=== PATIENT | male | born 1940 | race Caucasian/White ===

== ENCOUNTER 2017-01-30 11:23 | Inpatient (IN) ==
--- NOTE | 2017-01-30 11:43 | Emergency Department Note ---
Disposition Clinical Impression: Weakness, Chronic anemia Disposition: Home, Self-Care Condition: Good Instructions: Weakness (ED) Reasons to Return/Additional Instructions: Please continue all medications as previously prescribed. Please follow-up with your primary care provider in the next 1-2 days for reevaluation and to discuss this visit. If you do not have one please contact the physician referral line provided to establish care. Should your symptoms persist, worsen or any concerns please return to the ER immediately for reevaluation. Referrals: NO,PCP [Non-Partnered Physician] - [place] [facility]erral [facility] [Outside] Forms: ED Satisfaction Letter Time of Disposition: 14:13 Weakness HPI - General Chief complaint: ED Weakness Stated complaint: generalized weakness Time Seen by Provider: 01/30/17 11:29 Source: patient, family Mode of arrival: wheelchair Limitations: no limitations Nursing Notes Reviewed: Yes Vital Signs Reviewed: Yes - History of Present Illness HPI Narrative: 76-year-old male history of atrial fibrillation on Coumadin, carotid stenosis on Plavix, oxygen dependent COPD, heart failure on Lasix 40 mg twice a day who presents to the ER with a chief complaint of weakness. The patient is accompanied by family. They report that for the last week he has had worsening weakness at his assisted living facility. They report that usually he only wears his oxygen at night but for the last week he has had to wear it continuously due to worsening shortness of breath. He denies any recent illnesses, fevers, chills, chest pain, shortness of breath, cough, nausea, vomiting or abdominal pain. He does report he had diarrhea around Tuesday but that resolved after one day. Family is concerned that he might be dehydrated because he takes diuretic pills and he has had decreased fluid intake. No new medications. No other complaints. Pt Subjective Complaint: generalized weakness/fatigue Onset (ago): week(s) (1) Duration: constant Location: generalized Migration: none Pain Severity: none Pain Scale: 0 Worsens with: none Associated symptoms: Reports: denies other symptoms - Related Data Home Medications Medication Instructions Recorded Confirmed Albuterol Neb 06/16/15 06/16/15 Allopurinol 06/16/15 06/16/15 Colace 06/16/15 06/16/15 Coreg 06/16/15 06/16/15 Coumadin 06/16/15 06/16/15 Daliresp 06/16/15 06/16/15 Digoxin 06/16/15 06/16/15 Flonase 06/16/15 06/16/15 Ipratropium Neb 06/16/15 06/16/15 Lisinopril 06/16/15 06/16/15 Loratadine 06/16/15 06/16/15 Metolazone 06/16/15 06/16/15 Nexium 06/16/15 06/16/15 Nitro Stat 06/16/15 06/16/15 Plavix 06/16/15 06/16/15 Potassium Chloride 06/16/15 06/16/15 Spiriva 06/16/15 06/16/15 Symbicort 06/16/15 06/16/15 Vitamin D2 (50,000 UNIT) 06/16/15 06/16/15 Zocor 06/16/15 06/16/15 Zoloft 06/16/15 06/16/15 Previous Rx's Medication Instructions Recorded Amoxicillin 875 mg PO BID #20 tablet 06/16/15 Ondansetron [Zofran] 8 mg PO TID PRN #9 tablet 06/16/15 predniSONE [Prednisone] See Taper PO DAILY #30 tablet 06/16/15 Allergies Allergy/AdvReac Type Severity Reaction Status Date / Time Oxycodone [From OxyContin] Allergy Hives Verified 06/16/15 18:46 tramadol Allergy Hives Verified 06/16/15 18:46 fentyl patch Allergy Hives Uncoded 06/16/15 18:46 All systems ED: reviewed and negative except as stated. Constitutional: Reports: weakness. Denies: fever, chills Cardiovascular: Denies: chest pain, palpitations Respiratory: Denies: cough, dyspnea Gastrointestinal: Denies: abdominal pain, nausea, vomiting, diarrhea Genitourinary: Denies: urgency, dysuria Neurological: Reports: weakness. Denies: numbness, paresthesias Past Medical History - Past Medical History Attestation: Yes The following information was validated with the patient. Source: patient Medical history: Reports: atrial fibrillation, COPD, coronary artery disease, diabetes, hypertension, other Surgical history: Reports: coronary bypass (CABG) (two way) Psychiatric history: Reports: no psych history - Social History Smoking Status: Former smoker Smokeless Tobacco Status: No Alcohol use: Reports: occasionally Drug use: Reports: none Physical Exam - General Limitations: no limitations General appearance: alert, in no apparent distress - Head Head exam: atraumatic, normocephalic, normal inspection - Eye Eye exam: Present: normal appearance, EOMI - ENT ENT exam: normal exam - Neck Neck exam: Present: normal inspection - Chest Chest inspection: Present: normal inspection - Respiratory Respiratory exam: Present: normal lung sounds bilaterally - Cardiovascular Cardiovascular exam: Present: regular rate, irregular rhythm, systolic murmur (2 /6) - Abdominal Exam Abdominal exam: Present: soft, Non-Tender. Absent: tenderness - Extremities Exam Extremities exam: Present: normal inspection, full ROM - Expanded Upper Extremity Exam Shoulder exam: Present: normal inspection, full ROM Arm exam: Present: normal inspection, full ROM Elbow exam: Present: normal inspection, full ROM Forearm/Wrist exam: Present: normal inspection, full ROM Hand exam: Present: normal inspection, full ROM Vascular exam: Normal: capillary refill, radial pulse - Expanded Lower Extremity Exam Hip/Pelvis exam: Present: normal inspection, full ROM Upper leg exam: Present: normal inspection, full ROM Knee exam: Present: normal inspection, full ROM Lower leg exam: Present: normal inspection, full ROM Ankle exam: Present: normal inspection, full ROM Foot/toe exam: Present: normal inspection, full ROM Neurovascular/Tendon exam: Absent: motor deficit, sensory deficit - Neurological Exam Neurological exam: Present: alert, oriented X3, CN II-XII intact. Absent: motor sensory deficit - Psychiatric Psychiatric exam: Present: normal affect, normal mood - Skin Skin exam: Present: warm, dry, intact, normal color Course Course Narrative: Patient seen and examined. Vital signs reviewed. Plan for patient is an EKG, chest x-ray as well as labs and urine. Disposition pending. - Reevaluation(s) Reevaluation #1: Discussed results of imaging and lab work with the patient. His labs show chronic anemia with no indication for transfusion. He does not appear to be dehydrated by his lab values. Patient is not wishes to the hospital so we will ambulate him here and see how he does. Disposition pending. Reevaluation #2: Attempted to ambulate however they report that he uses a wheelchair consistently. Patient will be discharged with follow-up to his PCP. Vital Signs Temperature 98.6 F 01/30/17 11:24 Pulse Rate 93 01/30/17 11:24 Respiratory Rate 18 01/30/17 11:24 Blood Pressure 122/73 01/30/17 11:24 O2 Sat by Pulse Oximetry 83 01/30/17 11:24 Temperature 98.6 F 01/30/17 11:24 Pulse Rate 84 01/30/17 12:52 Respiratory Rate 19 01/30/17 13:09 Blood Pressure 111/67 01/30/17 12:52 O2 Sat by Pulse Oximetry 93 01/30/17 13:09 Oxygen Delivery Oxygen Delivery Nasal Cannula Weakness - MDM Narrative Medical decision making narrative: 76-year-old male presents to the ER with a chief complaint of weakness for one week duration. Family was concerned that he might be dehydrated because of how many water bottles they had found in his refrigerator over a one-week period. EKG here demonstrates A. fib and left bundle branch block which is chronic. Labs do not reveal any dehydration. There is a discussion about admission versus going home and the patient elects to be discharged at this time. Patient encouraged to follow-up with his PCP when next available. Given information for the referral line if he does not have one. - Lab Data Lab results reviewed: Yes I reviewed the patient's lab results. Result diagrams: 01/30/17 11:57 01/30/17 11:57 Lab Results 01/30/17 01/30/17 01/30/17 Range/Units 11:57 11:57 11:57 WBC 9.5 (4.3-11.1) K/mcL RBC 4.11 L (4.19-5.50) M/mcL Hgb 11.5 L (12.9-16.9) g/dL Hct 35.8 L (37.5-50.1) % MCV 87.1 (83.0-100.0) fL MCH 28.0 (28.0-33.3) pg MCHC 32.1 (31.6-35.5) g/dL RDW 15.4 H (11.5-14.5) % Plt Count 335 (140-400) K/mcL MPV 10.1 (9.4-12.4) fL Immature Gran % 0.5 (0-4) % Seg Neutrophils % 78.1 % Lymphocytes % 9.2 % Monocytes % 9.7 % Eosinophils % 2.3 % Basophils % 0.2 % Neutrophils # 7.4 (1.6-8.9) K/mcL Lymphocytes # 0.9 (0.6-4.6) K/mcL Monocytes # 0.9 (0.0-1.3) K/mcL Eosinophils # 0.2 (0.0-0.6) K/mcL Basophils # 0.0 (0.0-0.2) K/mcL Sodium 133 L (136-145) mEq/L Potassium 3.8 (3.5-4.5) mEq/L Chloride 101 (98-109) mEq/L Carbon Dioxide 25 (19-29) mEq/L BUN 27 H (8-26) mg/dL Creatinine 0.82 (0.72-1.25) mg/dL Est GFR ( Amer) > 60 (> 60) Est GFR (Non-Af Amer) > 60 (> 60) BUN/Creatinine Ratio 33 H (6-26) Glucose 98 (70-99) mg/dL Calculated Osmolality 281 (280-300) Calcium 7.9 L (8.6-10.8) mg/dL Troponin I 0.01 (0-0.03) ng/mL B-Natriuretic Peptide (0-100) pg/mL TSH 1.050 (0.350-4.840) mcIU/mL Urine Color (Yellow) Urine Clarity (Clear) Urine pH (5.0-8.0) pH Units Ur Specific [place] (1.010-1.025) Urine Protein (Neg-Trace) mg/dL Urine Glucose (UA) (Normal) mg/dL Urine Ketones (Negative) mg/dL Urine Blood (Negative) Urine Nitrite (Negative) Urine Bilirubin (Negative) Urine Urobilinogen (Normal) mg/dL Ur Leukocyte Esterase (Negative) 01/30/17 01/30/17 Range/Units 11:57 12:48 WBC (4.3-11.1) K/mcL RBC (4.19-5.50) M/mcL Hgb (12.9-16.9) g/dL Hct (37.5-50.1) % MCV (83.0-100.0) fL MCH (28.0-33.3) pg MCHC (31.6-35.5) g/dL RDW (11.5-14.5) % Plt Count (140-400) K/mcL MPV (9.4-12.4) fL Immature Gran % (0-4) % Seg Neutrophils % % Lymphocytes % % Monocytes % % Eosinophils % % Basophils % % Neutrophils # (1.6-8.9) K/mcL Lymphocytes # (0.6-4.6) K/mcL Monocytes # (0.0-1.3) K/mcL Eosinophils # (0.0-0.6) K/mcL Basophils # (0.0-0.2) K/mcL Sodium (136-145) mEq/L Potassium (3.5-4.5) mEq/L Chloride (98-109) mEq/L Carbon Dioxide (19-29) mEq/L BUN (8-26) mg/dL Creatinine (0.72-1.25) mg/dL Est GFR ( Amer) (> 60) Est GFR (Non-Af Amer) (> 60) BUN/Creatinine Ratio (6-26) Glucose (70-99) mg/dL Calculated Osmolality (280-300) Calcium (8.6-10.8) mg/dL Troponin I (0-0.03) ng/mL B-Natriuretic Peptide 327 H (0-100) pg/mL TSH (0.350-4.840) mcIU/mL Urine Color Yellow (Yellow) Urine Clarity Clear (Clear) Urine pH 6.0 (5.0-8.0) pH Units Ur Specific [place] 1.024 (1.010-1.025) Urine Protein Trace (Neg-Trace) mg/dL Urine Glucose (UA) Normal (Normal) mg/dL Urine Ketones Negative (Negative) mg/dL Urine Blood Negative (Negative) Urine Nitrite Negative (Negative) Urine Bilirubin Negative (Negative) Urine Urobilinogen Normal (Normal) mg/dL Ur Leukocyte Esterase Negative (Negative) - Radiology Data Radiology results reviewed: Yes I reviewed the patient's radiology results. Chest X-Ray 01/30/17 11:40 IMPRESSION: Cardiomegaly with possible trace effusions. No lobar pneumonia or overt congestive heart failure. D/ / Alonso Bourgeois MD / Alonso Bourgeois MD Interpreting Provider: Alonso Bourgeois MD - EKG Data EKG attestation: Yes I reviewed and interpreted this EKG. EKG results narrative: EKG demonstrates atrial fibrillation, left bundle branch block with a rate of 80 bpm. Normal axis. QRS duration [address]-T wave changes in the limb leads and V5 V6 likely secondary to bundle branch block. No ST elevations or depressions. No acute ischemic findings. No significant changes from previous EKG dated 03/21/14. Attestation Statement - Attestation Attestation: I examined this patient and my medical decision-making was reviewed with the ACCORDION MAKER/PA/Advanced Practice Nurse/Resident Physician. I agree with the documented findings, disposition and treatment plan as described except to the extent set forth below.
[2017-01-30] MEDS ORDERED: 0.9 % Sodium Chloride 1,000 ML IVC ONE ×2 (12:11→12:45)
[2017-01-30 12:15] LABS: Basophils % 0.2 %; Eosinophils # 0.2 K/mcL (0.0-0.6); Eosinophils % 2.3 %; Hematocrit 35.8 % (37.5-50.1); Hemoglobin 11.5 g/dL (12.9-16.9); Immature Granulocytes % 0.5 % (0-4); Lymphocytes # 0.9 K/mcL (0.6-4.6); Lymphocytes % 9.2 %; Mean Corpuscular HGB Conc 32.1 g/dL (31.6-35.5); Mean Corpuscular Volume 87.1 fL (83.0-100.0); Mean Platelet Volume 10.1 fL (9.4-12.4); Monocytes # 0.9 K/mcL (0.0-1.3); Monocytes % 9.7 %; Neutrophils # 7.4 K/mcL (1.6-8.9); Platelet Count 335 K/mcL (140-400); Red Blood Count 4.11 M/mcL (4.19-5.50); Red Cell Distribution Width 15.4 % (11.5-14.5); Segmented Neutrophils % 78.1 %
[2017-01-30 12:20] LABS: BUN/Creatinine Ratio 33 (6-26); Blood Urea Nitrogen 27 mg/dL (8-26); Calcium 7.9 mg/dL (8.6-10.8); Carbon Dioxide 25 mEq/L (19-29); Chloride 101 mEq/L (98-109); Glucose 98 mg/dL (70-99); Osmolality,Calculated 281 (280-300); Potassium 3.8 mEq/L (3.5-4.5); Sodium 133 mEq/L (136-145); eGFR For African Americans > 60 (> 60); eGFR For Non-African Americans > 60 (> 60)
[2017-01-30] MEDS ORDERED: Ipratropium/Albuterol Neb 3 ML IH ONE (12:44)
[2017-01-30 12:57] LABS: Bilirubin,Urine Negative (Negative); Blood,Urine Negative (Negative); Clarity,Urine Clear (Clear); Color,Urine Yellow (Yellow); Glucose,Urine (UA) Normal (Normal); Ketones,Urine Negative (Negative); Leukocyte Esterase,Urine Negative (Negative); Nitrite,Urine Negative (Negative); Protein,Urine Trace mg/dL (Neg-Trace); Specific Gravity,Urine 1.024 (1.010-1.025); Urobilinogen,Urine Normal (Normal)
[2017-01-30 13:00] LABS: Bacteria,Urine None Seen per hpf (None-Few); Hyaline Casts,Urine None Seen per lpf (None-Few); RBC,Urine 0-3 per hpf (0-3); Squamous Epithelial Cell,Urine Moderate per lpf (None-Few); WBC,Urine 0-3 per hpf (0-3)
[2017-01-30] MEDS ORDERED: 0.9 % Sodium Chloride 500 ML IVC ONE (13:04)
--- NOTE | 2017-01-30 14:34 | Emergency Department Note ---
Disposition Clinical Impression: Weakness, Chronic anemia Disposition: Admitted As Inpatient Condition: Good Instructions: Weakness (ED) Referrals: NO,PCP [Non-Partnered Physician] - Forms: ED Satisfaction Letter Weakness HPI - General Chief complaint: ED Weakness Stated complaint: generalized weakness Time Seen by Provider: 01/30/17 11:29 Source: patient, family Mode of arrival: wheelchair Limitations: no limitations - History of Present Illness Pt Subjective Complaint: generalized weakness/fatigue Location: generalized Pain Severity: none Pain Scale: 0 Worsens with: none Associated symptoms: Reports: denies other symptoms - Related Data Home Medications Medication Instructions Recorded Confirmed Albuterol Neb 06/16/15 06/16/15 Allopurinol 06/16/15 06/16/15 Colace 06/16/15 06/16/15 Coreg 06/16/15 06/16/15 Coumadin 06/16/15 06/16/15 Daliresp 06/16/15 06/16/15 Digoxin 06/16/15 06/16/15 Flonase 06/16/15 06/16/15 Ipratropium Neb 06/16/15 06/16/15 Lisinopril 06/16/15 06/16/15 Loratadine 06/16/15 06/16/15 Metolazone 06/16/15 06/16/15 Nexium 06/16/15 06/16/15 Nitro Stat 06/16/15 06/16/15 Plavix 06/16/15 06/16/15 Potassium Chloride 06/16/15 06/16/15 Spiriva 06/16/15 06/16/15 Symbicort 06/16/15 06/16/15 Vitamin D2 (50,000 UNIT) 06/16/15 06/16/15 Zocor 06/16/15 06/16/15 Zoloft 06/16/15 06/16/15 Previous Rx's Medication Instructions Recorded Amoxicillin 875 mg PO BID #20 tablet 06/16/15 Ondansetron [Zofran] 8 mg PO TID PRN #9 tablet 06/16/15 predniSONE [Prednisone] See Taper PO DAILY #30 tablet 06/16/15 Allergies Allergy/AdvReac Type Severity Reaction Status Date / Time Oxycodone [From OxyContin] Allergy Hives Verified 06/16/15 18:46 tramadol Allergy Hives Verified 06/16/15 18:46 fentyl patch Allergy Hives Uncoded 06/16/15 18:46 Constitutional: Reports: weakness. Denies: fever, chills Cardiovascular: Denies: chest pain, palpitations Respiratory: Denies: cough, dyspnea Gastrointestinal: Denies: abdominal pain, nausea, vomiting, diarrhea Genitourinary: Denies: urgency, dysuria Neurological: Reports: weakness. Denies: numbness, paresthesias Past Medical History - Past Medical History Medical history: Reports: atrial fibrillation, COPD, coronary artery disease, diabetes, hypertension, other Surgical history: Reports: coronary bypass (CABG) (two way) Psychiatric history: Reports: no psych history - Social History Smoking Status: Former smoker Smokeless Tobacco Status: No Alcohol use: Reports: occasionally Drug use: Reports: none Physical Exam - General Limitations: no limitations General appearance: alert, in no apparent distress Course Course Narrative: Patient decided that he would rather be admitted to the hospital and to be discharged. I discussed with him about his usual function at the facility. He reports that he is nonambulatory but he usually is able to transition from bed to wheelchair but has been too weak to be able to do this over the last week. Vital Signs Temperature 98.6 F 01/30/17 11:24 Pulse Rate 93 01/30/17 11:24 Respiratory Rate 18 01/30/17 11:24 Blood Pressure 122/73 01/30/17 11:24 O2 Sat by Pulse Oximetry 83 01/30/17 11:24 Temperature 98.6 F 01/30/17 11:24 Pulse Rate 84 01/30/17 12:52 Respiratory Rate 19 01/30/17 13:09 Blood Pressure 111/67 01/30/17 12:52 O2 Sat by Pulse Oximetry 93 01/30/17 13:09 Oxygen Delivery Oxygen Delivery Nasal Cannula Weakness - MDM Narrative Medical decision making narrative: 76-year-old male presents to the ER due to generalized weakness for roughly 1 week duration. His labs show chronic anemia unchanged from his prior. Chest x- ray shows cardiomegaly with no overt failure. EKG is A. fib with a chronic left bundle-branch block. Patient is unable to get up out of bed or transition to a wheelchair here. We will admit to the hospitalist service for further management. - Lab Data Lab results reviewed: Yes I reviewed the patient's lab results. Result diagrams: 01/30/17 11:57 01/30/17 11:57 Lab Results 01/30/17 01/30/17 01/30/17 Range/Units 11:57 11:57 11:57 WBC 9.5 (4.3-11.1) K/mcL RBC 4.11 L (4.19-5.50) M/mcL Hgb 11.5 L (12.9-16.9) g/dL Hct 35.8 L (37.5-50.1) % MCV 87.1 (83.0-100.0) fL MCH 28.0 (28.0-33.3) pg MCHC 32.1 (31.6-35.5) g/dL RDW 15.4 H (11.5-14.5) % Plt Count 335 (140-400) K/mcL MPV 10.1 (9.4-12.4) fL Immature Gran % 0.5 (0-4) % Seg Neutrophils % 78.1 % Lymphocytes % 9.2 % Monocytes % 9.7 % Eosinophils % 2.3 % Basophils % 0.2 % Neutrophils # 7.4 (1.6-8.9) K/mcL Lymphocytes # 0.9 (0.6-4.6) K/mcL Monocytes # 0.9 (0.0-1.3) K/mcL Eosinophils # 0.2 (0.0-0.6) K/mcL Basophils # 0.0 (0.0-0.2) K/mcL Sodium 133 L (136-145) mEq/L Potassium 3.8 (3.5-4.5) mEq/L Chloride 101 (98-109) mEq/L Carbon Dioxide 25 (19-29) mEq/L BUN 27 H (8-26) mg/dL Creatinine 0.82 (0.72-1.25) mg/dL Est GFR ( Amer) > 60 (> 60) Est GFR (Non-Af Amer) > 60 (> 60) BUN/Creatinine Ratio 33 H (6-26) Glucose 98 (70-99) mg/dL Calculated Osmolality 281 (280-300) Calcium 7.9 L (8.6-10.8) mg/dL Troponin I 0.01 (0-0.03) ng/mL B-Natriuretic Peptide (0-100) pg/mL TSH 1.050 (0.350-4.840) mcIU/mL Urine Color (Yellow) Urine Clarity (Clear) Urine pH (5.0-8.0) pH Units Ur Specific [place] (1.010-1.025) Urine Protein (Neg-Trace) mg/dL Urine Glucose (UA) (Normal) mg/dL Urine Ketones (Negative) mg/dL Urine Blood (Negative) Urine Nitrite (Negative) Urine Bilirubin (Negative) Urine Urobilinogen (Normal) mg/dL Ur Leukocyte Esterase (Negative) Urine Microscopic RBC (0-3) per hpf Urine Microscopic WBC (0-3) per hpf Ur Squamous Epith Cells (None-Few) per lpf Urine Bacteria (None-Few) per hpf Hyaline Casts (None-Few) per lpf Ur Culture Indicated? (NO) 01/30/17 01/30/17 Range/Units 11:57 12:48 WBC (4.3-11.1) K/mcL RBC (4.19-5.50) M/mcL Hgb (12.9-16.9) g/dL Hct (37.5-50.1) % MCV (83.0-100.0) fL MCH (28.0-33.3) pg MCHC (31.6-35.5) g/dL RDW (11.5-14.5) % Plt Count (140-400) K/mcL MPV (9.4-12.4) fL Immature Gran % (0-4) % Seg Neutrophils % % Lymphocytes % % Monocytes % % Eosinophils % % Basophils % % Neutrophils # (1.6-8.9) K/mcL Lymphocytes # (0.6-4.6) K/mcL Monocytes # (0.0-1.3) K/mcL Eosinophils # (0.0-0.6) K/mcL Basophils # (0.0-0.2) K/mcL Sodium (136-145) mEq/L Potassium (3.5-4.5) mEq/L Chloride (98-109) mEq/L Carbon Dioxide (19-29) mEq/L BUN (8-26) mg/dL Creatinine (0.72-1.25) mg/dL Est GFR ( Amer) (> 60) Est GFR (Non-Af Amer) (> 60) BUN/Creatinine Ratio (6-26) Glucose (70-99) mg/dL Calculated Osmolality (280-300) Calcium (8.6-10.8) mg/dL Troponin I (0-0.03) ng/mL B-Natriuretic Peptide 327 H (0-100) pg/mL TSH (0.350-4.840) mcIU/mL Urine Color Yellow (Yellow) Urine Clarity Clear (Clear) Urine pH 6.0 (5.0-8.0) pH Units Ur Specific [place] 1.024 (1.010-1.025) Urine Protein Trace (Neg-Trace) mg/dL Urine Glucose (UA) Normal (Normal) mg/dL Urine Ketones Negative (Negative) mg/dL Urine Blood Negative (Negative) Urine Nitrite Negative (Negative) Urine Bilirubin Negative (Negative) Urine Urobilinogen Normal (Normal) mg/dL Ur Leukocyte Esterase Negative (Negative) Urine Microscopic RBC 0-3 (0-3) per hpf Urine Microscopic WBC 0-3 (0-3) per hpf Ur Squamous Epith Cells Moderate H (None-Few) per lpf Urine Bacteria None Seen (None-Few) per hpf Hyaline Casts None Seen (None-Few) per lpf Ur Culture Indicated? NO (NO) - Radiology Data Radiology results reviewed: Yes I reviewed the patient's radiology results. Chest X-Ray 01/30/17 11:40 IMPRESSION: Cardiomegaly with possible trace effusions. No lobar pneumonia or overt congestive heart failure. D/ / 01/30/2017 12:29:32 Alonso Bourgeois MD / annette Interpreting Provider: Alonso Bourgeois MD Eric - Eric Situation: Demographics, MOA Background: Presenting Complaint, Relevant PMH, Meds, & Allergies Assessment: Vital Signs, Course and respsone to treatment, Exam Concerns, Patient/Family Expectation, Pertinant Lab Results, Outstanding Labs Recommendation: Barrier(s) to disposition, Recommendation based on pending studies, treatments, or consults Eric Report Given to: Dr. Dagoberto Reyes Repor Time: 14:58
--- NOTE | 2017-01-30 17:30 | Internal Med History&Physical ---
Date of Encounter: 01/30/17 Time of Encounter: 17:40 Assessment and Plan (1) Acute diastolic congestive heart failure Current visit: Yes Status: Acute Patient presents with progressive shortness, currently at rest in addition to increase oxygen requirements currently on 4 L of oxygen. I will start cali Lasix 40 mg twice daily. Padilla catheter will be placed. Intake and output monitoring. He is full code. He denies any chest pain currently. Initial troponin normal. serial cardiac markers. Echocardiogram will be checked. He has a slight expiratory wheezing suspect that this is related to cardiac asthma. He is also a COPDer on nebulizer treatments which we will continue. I do not think patient needs any steroids or antibiotics. Because physical exam is somewhat out of proportion with amount of respiratory distress, I will get VQ scan through without pulmonary embolism. Will check his INR and see if he is therapeutic. (2) Atrial fibrillation Current visit: Yes Status: Acute Continue anticoagulation with Coumadin. He denies any evidence of G.I. bleeding. Check INR Qualifiers: Qualified Code(s): I48.91 - Unspecified atrial fibrillation (3) COPD (chronic obstructive pulmonary disease) Current visit: Yes Status: Acute Slight expiratory wheeze. Continue home regimen of [id number] nebulizer treatment. Qualifiers: Qualified Code(s): J44.9 - Chronic obstructive pulmonary disease, unspecified Internal Medicine - H&P: HPI Chief complaint: sob History of present illness: Mr. Kumar is a 76 year old male with multiple medical problems including coronary artery disease status post cabg, ischemic cardiomyopathy, paroxysmal atrial fibrillation on anticoagulation with Coumadin, presents emergency room today with shortness of breath. For the past few days patient was noted to be more short of breath than usual. He would get shot short of breath with walking a few steps. Currently short of breath just conversation. His oxygen requirements has been increasing. Currently he requires 4 L of oxygen 24 7 maintaining sensation above 90%. He denies any chest pain. No fever or chills. No. Sputum production. No hemoptysis. He takes Lasix 40 mg twice a day which she has been compliant. Patient was having conversation Dyspnea during my interview. He denies noticing any significant change in his lower extremity swelling. He does not regularly weigh himself. No chest pain. Family has noticed weakness in the left upper extremity more than right. However this has been going on for a couple of month. Past Med Surg Social Fam HX - Past Medical History Medical history: atrial fibrillation, COPD, coronary artery disease, diabetes, hypertension, other Psychiatric history: no psych history - Past Surgical History Surgical History: coronary bypass (CABG) - Social History Smoking Status: Former smoker Smokeless Tobacco Status: No Alcohol use: occasionally Drug use: none Internal Medicine - H&P: Meds Albuterol Neb 06/16/15 [History] Allopurinol 06/16/15 [History] Amoxicillin 875 mg PO BID #20 tablet 06/16/15 [Rx] Colace 06/16/15 [History] Coreg 06/16/15 [History] Coumadin 06/16/15 [History] Daliresp 06/16/15 [History] Digoxin 06/16/15 [History] Flonase 06/16/15 [History] Ipratropium Neb 06/16/15 [History] Lisinopril 06/16/15 [History] Loratadine 06/16/15 [History] Metolazone 06/16/15 [History] Nexium 06/16/15 [History] Nitro Stat 06/16/15 [History] Ondansetron [Zofran] 8 mg PO TID PRN #9 tablet 06/16/15 [Rx] Plavix 06/16/15 [History] Potassium Chloride 06/16/15 [History] Spiriva 06/16/15 [History] Symbicort 06/16/15 [History] Vitamin D2 (50,000 UNIT) 06/16/15 [History] Zocor 06/16/15 [History] Zoloft 06/16/15 [History] predniSONE [Prednisone] See Taper PO DAILY #30 tablet 06/16/15 [Rx] Allergies Oxycodone [From OxyContin] Allergy (Verified 06/16/15 18:46) Hives tramadol Allergy (Verified 06/16/15 18:46) Hives fentyl patch Allergy (Uncoded 06/16/15 18:46) Hives All Systems PM: A 10-system review of systems was performed and is negative for pertinent findings except as documented above in the HPI. Review of systems: 10 point ROS is negative except for HPI. - Constitutional Vitals: Temp Pulse Resp BP Pulse Ox 96.7 F L 81 18 124/73 93 01/30/17 16:53 01/30/17 16:53 01/30/17 16:53 01/30/17 16:53 01/30/17 16:53 Exam: Gen.: patient is alert oriented times 3 conversational dyspnea Tamia: normal S1 S2 no additional sounds chest: bilateral basal rales abdomen: soft nontender nondistended lower extremity: lax calf muscles. Neuro: No focal deficits. Internal Med - H&P Results - Labs CBC & Chem 7: 01/30/17 11:57 01/30/17 11:57
[2017-01-30] MEDS: Furosemide 40 MG/4 ML VIAL IVP SCH (18:19)
[2017-01-30] MEDS ORDERED: Furosemide 40 MG/4 ML VIAL IVP SCH (21:00)
[2017-01-30] MEDS ORDERED: Levalbuterol Neb 1.25 MG/3 ML IH SCH (21:00)
[2017-01-30] MEDS: Levalbuterol Neb 1.25 MG/3 ML IH SCH (23:28)
[2017-01-31 03:32] LABS: Basophils % 0.2 %; Eosinophils # 0.2 K/mcL (0.0-0.6); Eosinophils % 2.1 %; Hematocrit 34.6 % (37.5-50.1); Immature Granulocytes % 0.5 % (0-4); Lymphocytes % 8.4 %; Mean Corpuscular HGB Conc 31.8 g/dL (31.6-35.5); Mean Corpuscular Hemoglobin 27.8 pg (28.0-33.3); Mean Corpuscular Volume 87.6 fL (83.0-100.0); Mean Platelet Volume 10.5 fL (9.4-12.4); Monocytes # 1.2 K/mcL (0.0-1.3); Monocytes % 10.3 %; Platelet Count 328 K/mcL (140-400); Red Blood Count 3.95 M/mcL (4.19-5.50); Red Cell Distribution Width 15.3 % (11.5-14.5); Segmented Neutrophils % 78.5 %
[2017-01-31 03:43] LABS: INR 2.2; Prothrombin Time 24.4 Seconds (9.4-12.1)
[2017-01-31 03:44] LABS: BUN/Creatinine Ratio 32 (6-26); Blood Urea Nitrogen 27 mg/dL (8-26); Calcium 8.9 mg/dL (8.6-10.8); Carbon Dioxide 28 mEq/L (19-29); Chloride 100 mEq/L (98-109); Glucose 106 mg/dL (70-99); Magnesium 1.9 mg/dL (1.6-2.6); Osmolality,Calculated 290 (280-300); Potassium 4.3 mEq/L (3.5-4.5); Sodium 137 mEq/L (136-145); eGFR For African Americans > 60 (> 60); eGFR For Non-African Americans > 60 (> 60)
[2017-01-31] MEDS: Levalbuterol Neb 1.25 MG/3 ML IH SCH ×4 (04:11→22:59)
[2017-01-31] MEDS ORDERED: Dextrose Gel 15 GM PO PRN ×2 (05:49)
[2017-01-31] MEDS ORDERED: *HR* Dextrose 50 % in Water (Syg) 50 ML SYRINGE IVP PRN (05:49)
[2017-01-31] MEDS ORDERED: D5% in Water 1,000 ML IVC PRN (05:49)
--- NOTE | 2017-01-31 07:08 | Electrocardiograph Report ---
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
[2017-01-31] MEDS: Furosemide 40 MG/4 ML VIAL IVP SCH ×2 (07:55→16:23)
[2017-01-31] MEDS: Spironolactone 25 MG TABLET PO SCH (07:56)
[2017-01-31] MEDS: Insulin LISPRO 300 UNITS/3 ML VIAL SQ SCH ×4 (08:00→20:52)
[2017-01-31] MEDS ORDERED: predniSONE 20 MG TABLET PO SCH (09:00)
--- NOTE | 2017-01-31 16:38 | Internal Med Progress Note ---
Date of Encounter: 01/31/17 Time of Encounter: 11:15 - Assessment and plan (1) Acute diastolic congestive heart failure Current Visit: Yes Status: Acute Assessment and plan: Acute on chronic exacerbation. Patient presents with progressive shortness of breath. He does not did appear to be shortness of breath at rest. He is requiring an increase in his supplemental oxygen to 4 L. He denies chest pain. Patient has expiratory wheezing posteriorly and audible rhonchi. Lasix has been increased to 40 mg twice a day. He is also receiving nebulizer treatments. Patient does speak easily in full sentences. Again he appears to be in minimal distress. BNP is 327. Chest x-ray shows cardiomegaly is with possible trace effusions. There is no lobar pneumonia or overt congestive heart failure. Echocardiogram was not ordered at admission, it was ordered and will be done tomorrow. VQ hss been completed and shows low probability for pulmonary embolism. Continue telemetry Pulse ox Monitor vital signs Monitor labs IV Lasix 40 mg by mouth twice a day Supplemental oxygen to maintain sats greater than 92%. (2) Atrial fibrillation Current Visit: Yes Status: Acute Assessment and plan: Rate controlled. Patient is on Coumadin for anticoagulation. INR is 2.2 Continue to monitor Qualifiers: Qualified Code(s): I48.91 - Unspecified atrial fibrillation (3) COPD (chronic obstructive pulmonary disease) Current Visit: Yes Status: Acute Assessment and plan: Patient has slight expiratory wheezing and audible rhonchi. He is wearing oxygen at his normal rate and is requiring increasing amount of oxygen to 4 L via nasal cannula. Continue nebulizers. Continue all diuresis for Rales/rhonchi Assessment need for antibiotics or steroids pending labs or condition Qualifiers: Qualified Code(s): J44.9 - Chronic obstructive pulmonary disease, unspecified (4) DVT prophylaxis Current Visit: Yes Status: Acute Assessment and plan: Patient is on Coumadin SCDs are ordered. - Time Spent With Patient less than 15 minutes - Subjective Interval history: Patient was resting quietly in bed. Transport arrived to take patient while I was there. There is audible wheezing and rhonchi heard. Expiratory wheezing posteriorly. Patient is wearing supplemental O2. He is alert and oriented and interactive. His speech is at times difficult to understand, however feel this is normal for this patient. There is no peripheral edema. Patient was leaving for VQ scan. In the note it said that echo was also ordered, it was not ordered I did order it today. Patient is not ready for discharge at this time. - Constitutional Vitals: Temp Pulse Resp BP Pulse Ox 98.3 F 62 18 111/46 97 01/31/17 14:51 01/31/17 14:51 01/31/17 15:47 01/31/17 14:51 01/31/17 15:47 General appearance: Present: mild distress, A&O X 3, pleasant, answers questions appropriately - Head Head exam: Present: normal inspection - Eye Eye exam: Present: normal appearance, conjuntiva pink - ENT ENT exam: Present: mucous membranes moist, normal exam, normal external ear exam - Neck Neck exam general surgery: Present: normal inspection. Absent: lymphadenopathy , tenderness - Respiratory Respiratory exam: Present: rhonchi, wheezes - Cardiovascular Cardiovascular exam: Present: diastolic murmur, RRR, +S1, +S2, systolic murmur - GI/Abdominal GI/Abdominal exam: Present: distended, soft. Absent: hepatomegaly, tenderness - Extremities Exam Extremities exam: Present: warm, radial pulses palpable and symetrical. Absent : pedal edema, tenderness - Neurological Exam Neurological exam: Present: alert, oriented X3, no focal deficits, strengths equal and symetr throughout. Absent: pronater drift, facial droop, speech deficit Internal Medicine: Result - Labs CBC & Chem 7: 01/31/17 02:53 01/31/17 02:53 Labs: Short CBC 01/31/17 Range/Units 02:53 WBC 11.5 H (4.3-11.1) K/mcL Hgb 11.0 L (12.9-16.9) g/dL Hct 34.6 L (37.5-50.1) % Plt Count 328 (140-400) K/mcL Neutrophils # 9.0 H (1.6-8.9) K/mcL BMP 01/31/17 02:53 Sodium 137 Potassium 4.3 Chloride 100 Carbon Dioxide 28 BUN 27 H Creatinine 0.85 Glucose 106 H Calcium 8.9 Cardiac Enzymes 01/30/17 01/30/17 Range/Units 17:51 23:29 Troponin I 0.02 0.03 (0-0.03) ng/mL - ABG Interpretation ABG results: PT/INR, D-dimer PT 24.4 Seconds (9.4-12.1) H 01/31/17 02:53 - Impressions Impressions Pulmonary Perfusion Imaging 01/31/17 11:25 IMPRESSION: Low probability for pulmonary embolism. D/ / Josh Andrade MD / Josh Andrade MD Interpreting Provider: Josh Andrade MD Consult Discharge Plan - Plan Referrals: Hakeem Quan [Primary Care Provider] -
[2017-02-01] MEDS: Levalbuterol Neb 1.25 MG/3 ML IH SCH ×4 (04:07→22:50)
[2017-02-01 05:05] LABS: Basophils % 0.3 %; Eosinophils # 0.2 K/mcL (0.0-0.6); Eosinophils % 2.3 %; Hematocrit 33.8 % (37.5-50.1); Hemoglobin 10.9 g/dL (12.9-16.9); Immature Granulocytes % 0.5 % (0-4); Lymphocytes # 1.3 K/mcL (0.6-4.6); Lymphocytes % 12.3 %; Mean Corpuscular HGB Conc 32.2 g/dL (31.6-35.5); Mean Corpuscular Hemoglobin 28.2 pg (28.0-33.3); Mean Corpuscular Volume 87.6 fL (83.0-100.0); Mean Platelet Volume 10.5 fL (9.4-12.4); Monocytes # 1.2 K/mcL (0.0-1.3); Monocytes % 11.3 %; Neutrophils # 7.7 K/mcL (1.6-8.9); Platelet Count 349 K/mcL (140-400); Red Blood Count 3.86 M/mcL (4.19-5.50); Red Cell Distribution Width 15.4 % (11.5-14.5); Segmented Neutrophils % 73.3 %
[2017-02-01 05:12] LABS: BUN/Creatinine Ratio 34 (6-26); Blood Urea Nitrogen 31 mg/dL (8-26); Calcium 9.3 mg/dL (8.6-10.8); Carbon Dioxide 27 mEq/L (19-29); Chloride 98 mEq/L (98-109); Glucose 98 mg/dL (70-99); Osmolality,Calculated 287 (280-300); Potassium 4.1 mEq/L (3.5-4.5); Sodium 135 mEq/L (136-145); eGFR For African Americans > 60 (> 60); eGFR For Non-African Americans > 60 (> 60)
[2017-02-01] MEDS: Furosemide 40 MG/4 ML VIAL IVP SCH ×2 (07:22→16:21)
[2017-02-01] MEDS: Insulin LISPRO 300 UNITS/3 ML VIAL SQ SCH ×4 (07:22→20:35)
[2017-02-01] MEDS: Spironolactone 25 MG TABLET PO SCH (07:23)
[2017-02-01] MEDS ORDERED: Perflutren Lipid Microsphere 1.3 ML in 0.9 % Sodium Chloride 8.7 ML IVP ONE (11:18)
--- NOTE | 2017-02-01 13:02 | ECHO - Doppler Report ---
Echo with Imaging Enhancement Agent Name: Timbo Kumar Date of Study: 02/01/2017 Date: 1940 Ht: 73.0 in Medical Record#: [id number] Age: 76 Wt: 218.0 lb Gender: Male BSA: 2.23 Order #: [id number] Location: [facility] Room #: 3A24 Reading Physician: Kelsea Thomason DO Chief Cardiopulmonary Technologist: Nathan Noble Ordering Physician: Irene Mary CNP Primary Physician: Hakeem Quan MD Indications: Congestive heart failure, Chest pain, Shortness of breath Impressions: Even with use of Definity, LV systolic function is challenging to evaluate. LVEF estimated at 30%. There is no evidence of left ventricular thrombus. Indeterminate left ventricular diastolic function. Left ventricle is mildly dilated. RV size is normal. Function is suboptimally evaluated. Trace aortic regurgitation. Moderate mitral regurgitation. No pulmonary hypertension by TR gradient, 20 mmHg. IVC is not visualized to estimate RVSP. Left Ventricular Wall Motion: Rest Echo Findings The apex, apical inferior, mid inferior, basal inferior, apical anterior, mid anterior, basal anterior, apical septal, mid inferior septal, basal inferior septal, apical lateral, mid anterior lateral, basal anterior lateral, mid anterior septal, mid inferior lateral, basal anterior septal and basal inferior lateral islas were hypokinetic. Findings: Study Quality * Technically sub-optimal due to clinical status. ECG Findings * Atrial fibrillation. Left Ventricle * Indeterminate diastolic function. * Atypical septal motion consistent with bundle branch block. * Mildly dilated left ventricle. * There is no LV thrombus. * Definity echo contrast was used. * Even with use of Definity, LVEF is difficult to evaluate. Estimated EF 30%. Left Atrium * Severely dilated left atrium. Mitral Valve * Moderate mitral annular calcification * Mild doming of the AMVL. * Moderate mitral regurgitation. * No mitral stenosis. Aortic Valve * Aortic valve not well visualized. * Mildly calcified aortic valve leaflets. * No aortic stenosis. * Trace aortic regurgitation. Aorta * Normally sized aortic root. Tricuspid Valve * Normal tricuspid valve structure. * Trace tricuspid regurgitation. Pulmonic Valve * Pulmonic valve is not well visualized. * No pulmonic stenosis. * No pulmonic regurgitation. Pulmonary Artery * Pulmonary artery not well visualized. Right Atrium * Normal right atrial size. Pericardium * There is no pericardial effusion present. Interatrial Septum * Interatrial septum not well evaluated. IVC * The IVC is not well evaluated. Right Ventricle * RV is normal in size. Function could not be well evaluated. 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 Contrast: Definity 1.3 ml in 8.7 ml of saline 2 ml. Measurements: BP: 119/ 71 2D Normal Values RVIDd: 3.60 cm <2.7 cm IVSd: .90 cm 0.6 - 1.0 cm LVIDd: 6.30 cm 3.7 - 5.6 cm LVPWd: .90 cm 0.6 - 1.1 cm LVIDs: 4.90 cm 1.5 - 3.6 cm AO: 2.10 cm < 4.0 cm LA: 4.90 cm 2.0 - 4.0cm %FS: 10.90 cm >25 % LA volume: 98 Mitral Valve Peak Velocity 1.36 m/sec Mean Velocity:.83 m/sec Peak Grad:7.00 mmHg Mean Grad:3.00 mmHg Pressure Time:77.00 msec Valve Area:2.86 cm2 Peak E:.99 m/sec Peak E' Lat Aj:10 cm/s Peak E' Med Aj:3.9 cm/s E/E' Lat Ratio:9.9 E/E' Med Ratio:25 Aortic Valve AI pressure Half-time: 540.00 msec Tricuspid Valve TV Regurg Peak Grad: 20.00mmHg TV Regurg Peak Aj: 2.23m/sec Updated by Kelsea Thomason on 02/01/2017 12:57:04 PM electronically signed on 02/01/2017 12:58:41 PM with status of Final Wall Motion Carpenter: 1=Normal, 2=Hypokinesis, 3=Akinesis, 4=Dyskinesis, 5=Aneurysmal, 6=Hyperkinetic, X=Not Visualized (Blank)=Missing
--- NOTE | 2017-02-01 14:13 | Internal Med Progress Note ---
Date of Encounter: 02/01/17 Time of Encounter: 09:25 - Assessment and plan (1) Acute congestive heart failure Current Visit: Yes Status: Acute Assessment and plan: Patient with acute congestive heart failure. 2-D echocardiogram shows poor left ventricular systolic ejection fraction at 30% with indeterminate left ventricular diastolic function. Continue Lasix. We will consult cardiology for further recommendations. Patient is having good urine output. Patient was also on Zaroxolyn, Plavix at home we will resume these medications. Discussed with cardiology. Patient has had prior echocardiogram in 2013 when he had EF of around 20%. She has not followed up with cardiology for at least 2 years now. We will make sure he does follow up after discharge from this hospitalization. Qualifiers: Congestive heart failure type: combined Qualified Code(s): I50.41 - Acute combined systolic (congestive) and diastolic (congestive) heart failure (2) Chronic anemia Current Visit: Yes Status: Chronic Assessment and plan: Chronic anemia. Stable hemoglobin. (3) Atrial fibrillation Current Visit: Yes Status: Chronic Assessment and plan: On anticoagulation with Coumadin. Will resume. Qualifiers: Atrial fibrillation type: paroxysmal Qualified Code(s): I48.0 - Paroxysmal atrial fibrillation (4) COPD (chronic obstructive pulmonary disease) Current Visit: Yes Status: Chronic Assessment and plan: Continue bronchodilator nebs as needed. Continue O2 supplementation. Qualifiers: Qualified Code(s): J44.9 - Chronic obstructive pulmonary disease, unspecified (5) Coronary artery disease Current Visit: Yes Status: Chronic Assessment and plan: Continue Plavix, Coreg, simvastatin. Qualifiers: Coronary Disease-Associated Artery/Lesion type: [place] artery [place] vs. transplanted heart: [place] heart Associated angina: without angina Qualified Code(s): I25.10 - Atherosclerotic heart disease of [place] coronary artery without angina pectoris - Subjective Interval history: Patient is feeling much better today. Shortness of breath is improving. Having good urine output. Continues to have swelling in his lower extremities but this is improving. No chest pain. - Constitutional Vitals: Temp Pulse Resp BP Pulse Ox 97.7 F 95 18 93/59 92 02/01/17 11:48 02/01/17 11:48 02/01/17 11:48 02/01/17 11:48 02/01/17 11:48 General appearance: Present: mild distress, A&O X 3, pleasant, answers questions appropriately - Neck Neck exam general surgery: Present: supple, trachea midline. Absent: lymphadenopathy - Respiratory Respiratory exam: Present: CTAB. Absent: accessory muscle use, rales, rhonchi, wheezes Additional comments: Basal crackles - Cardiovascular Cardiovascular exam: Present: RRR, +S1, +S2. Absent: diastolic murmur, gallop, rubs, systolic murmur - Extremities Exam Extremities exam: Present: pedal edema, warm, radial pulses palpable and symetrical. Absent: calf tenderness, cyanotic - Neurological Exam Neurological exam: Present: alert, oriented X3, no focal deficits. Absent: facial droop, speech deficit Internal Medicine: Result - Labs CBC & Chem 7: 02/01/17 04:38 02/01/17 04:38 Labs: Short CBC 02/01/17 Range/Units 04:38 WBC 10.4 (4.3-11.1) K/mcL Hgb 10.9 L (12.9-16.9) g/dL Hct 33.8 L (37.5-50.1) % Plt Count 349 (140-400) K/mcL Neutrophils # 7.7 (1.6-8.9) K/mcL BMP 02/01/17 04:38 Sodium 135 L Potassium 4.1 Chloride 98 Carbon Dioxide 27 BUN 31 H Creatinine 0.90 Glucose 98 Calcium 9.3 - ABG Interpretation ABG results: PT/INR, D-dimer PT 24.4 Seconds (9.4-12.1) H 01/31/17 02:53 Consult Discharge Plan - Plan Referrals: Hakeem Quan [Primary Care Provider] - - Attending Attestation This document has been at least partially created by [employer] recognition technology by Dr. Arenas. Errors in grammar, wording or other phrases may exist. If errors are found after the documentation is signed, they will be addressed individually in the addendum section of this document when appropriate.
[2017-02-01] MEDS ORDERED: metOLazone 2.5 MG TABLET PO PRN (14:29)
[2017-02-01] MEDS ORDERED: Budesonide/Formoterol 160/4.5 MDI IH PRN (14:29)
[2017-02-01] MEDS: SACUBITRIL/VALSARTAN 24/26 MG TABLET PO SCH (16:20)
[2017-02-01] MEDS ORDERED: Spironolactone 25 MG TABLET PO SCH (17:00)
[2017-02-01] MEDS: *HR* Warfarin 2 MG TABLET PO SCH (17:32)
[2017-02-01] MEDS ORDERED: Warfarin perPT PO PRN (18:00)
[2017-02-02] MEDS: Levalbuterol Neb 1.25 MG/3 ML IH SCH ×4 (04:29→22:07)
[2017-02-02 06:04] LABS: INR 1.7; Prothrombin Time 19.1 Seconds (9.4-12.1)
[2017-02-02 07:58] LABS: CK Total (Ck Isoenzymes) 16 U/L (20-200)
[2017-02-02 07:58] LABS: CK Total (Ck Isoenzymes) 17 U/L (20-200)
[2017-02-02] MEDS: Insulin LISPRO 300 UNITS/3 ML VIAL SQ SCH ×4 (09:11→20:36)
[2017-02-02] MEDS: *HR* Digoxin 0.125 MG TABLET PO SCH (09:12)
[2017-02-02] MEDS: Spironolactone 25 MG TABLET PO SCH (09:12)
[2017-02-02] MEDS: SACUBITRIL/VALSARTAN 24/26 MG TABLET PO SCH ×2 (09:12→16:30)
[2017-02-02] MEDS: Furosemide 40 MG/4 ML VIAL IVP SCH ×2 (09:13→16:11)
--- NOTE | 2017-02-02 10:18 | Discharge Summary ---
Date of Encounter: 02/02/17 Time of Encounter: 10:18 - Discharge Medications Home Medications: Albuterol Sulfate [Albuterol Inhaler] 1 puff IH Q6H PRN 01/31/17 [History] Allopurinol [Zyloprim] 300 mg PO 0900 01/31/17 [History] Budesonide/Formoterol 160/4.5 [Symbicort 160/4.5] 2 puff IH 0900,1700 PRN [History] Carvedilol [Coreg] 6.25 mg PO 0900,1700 01/31/17 [History] Clopidogrel [Plavix] 75 mg PO 0901/31/17 [History] Digoxin [Lanoxin] 0.125 mg PO 0901/31/17 [History] Docusate [Colace] 100 mg PO 0901/31/17 [History] Ergocalciferol (VITAMIN D2) [Vitamin D2] 50,000 unit PO TH 01/31/17 [History] Fluticasone Propionate Nasal [Flonase] 2 spr NS 0900 PRN 01/31/17 [History] Furosemide [Lasix] 40 mg PO 0900 01/31/17 [History] Ipratropium/Albuterol Neb [Duoneb] 3 ml IH 0300,0900,1500,2100 PRN 01/31/17 [ History] Loratadine [Allergy Relief] 10 mg PO 0900 01/31/17 [History] Nitroglycerin [Nitrostat] 0.4 mg SL Q5M PRN MDD 3 TABLETS 01/31/17 [History] Polyethylene Glycol 3350 [MiraLAX Powder Bulk 17.9 Oz] 1 scoop PO DAILY PRN [History] Potassium Chloride [Klor-Con 10] 10 meq PO 0900 01/31/17 [History] Roflumilast [Daliresp] 500 mcg PO 0901/31/17 [History] Sacubitril/Valsartan [Entresto 24 mg-26 mg Tablet] 1 each PO 0800,1600 01/31/17 [History] Sertraline [Zoloft] 100 mg PO 1700 01/31/17 [History] Simvastatin [Zocor] [place] [address]/31/17 [History] Spironolactone [Aldactone] 25 mg PO 1700 01/31/17 [History] Tiotropium [Spiriva] 18 mcg IH 0900 01/31/17 [History] Warfarin [Coumadin] 2 mg PO 1700 01/31/17 [History] metOLazone [Zaroxolyn] 2.5 mg PO DAILY PRN 01/31/17 [History] Allergies/Adverse Reactions: Allergies Oxycodone [From OxyContin] Allergy (Verified 01/31/17 09:22) Hives tramadol Allergy (Verified 01/31/17 09:22) Hives fentyl patch Allergy (Uncoded 01/31/17 09:22) Hives Procedures/tests Complete & Pending: Procedures Performed prior 72 hours Category Date Time Status EV echocardiogram w enhance Stat Y 02/01/17 16:32 Completed Date of admission: 01/30/17 17:30 Primary care physician: Hakeem Quan Discharging clinician: Natalio Julien Anticipated date of discharge: 02/02/17 - Patient Status Condition: Good - Discharge Instructions Follow Up With: Hakeem Quan [Primary Care Provider] - Hospital course: Mr. Kumar is a 76 year old male - Time Spent with Patient Total time spent providing and/or coordinating discharge services: - Constitutional Vitals: Temp Pulse Resp BP Pulse Ox 97.4 F L 87 16 105/67 93 02/02/17 07:12 02/02/17 07:12 02/02/17 07:12 02/02/17 07:12 02/02/17 07:12 General appearance: Present: A&O X 3, pleasant, no acute distress, answers questions appropriately - Head Head exam: Present: atraumatic, normocephalic - Eye Eye exam: Present: PERRL, conjuntiva pink, sclera anicteric Pupils: Present: PERRL - Neck Neck exam general surgery: Present: supple, trachea midline. Absent: lymphadenopathy - Respiratory Respiratory exam: Present: CTAB. Absent: accessory muscle use, rales, rhonchi, wheezes - Cardiovascular Cardiovascular exam: Present: RRR, +S1, +S2, systolic murmur. Absent: diastolic murmur, gallop, rubs, +S3 - GI/Abdominal GI/Abdominal exam: Present: normal bowel sounds, soft, no peritoneal signs. Absent: distended, tenderness - Extremities Exam Extremities exam: Present: warm, radial pulses palpable and symetrical. Absent : calf tenderness, cyanotic, pedal edema - Neurological Exam Neurological exam: Present: alert, CN II-XII intact, oriented X3, no focal deficits. Absent: pronater drift, facial droop, speech deficit - Skin Skin exam: Present: dry, intact
[2017-02-02] MEDS: Tiotropium 18 MCG inhalation IH SCH (11:42)
--- NOTE | 2017-02-02 16:25 | Internal Med Progress Note ---
Date of Encounter: 02/02/17 Time of Encounter: 09:55 - Assessment and plan (1) Chronic anemia Current Visit: Yes Status: Chronic Assessment and plan: Chronic anemia. Stable hemoglobin. (2) Atrial fibrillation Current Visit: Yes Status: Chronic Assessment and plan: On anticoagulation with Coumadin. INR sub-therapeutic, continue coumadin Qualifiers: Atrial fibrillation type: paroxysmal Qualified Code(s): I48.0 - Paroxysmal atrial fibrillation (3) COPD (chronic obstructive pulmonary disease) Current Visit: Yes Status: Chronic Assessment and plan: Continue bronchodilator nebs as needed. Continue O2 supplementation. Qualifiers: Qualified Code(s): J44.9 - Chronic obstructive pulmonary disease, unspecified (4) DVT prophylaxis Current Visit: Yes Status: Acute Assessment and plan: Patient is on Coumadin SCDs are ordered. (5) Acute congestive heart failure Current Visit: Yes Status: Acute Assessment and plan: Patient with acute congestive heart failure. 2-D echocardiogram shows poor left ventricular systolic ejection fraction at 30% with indeterminate left ventricular diastolic function. Continue Lasix, metolazone prn. Per cardiology patient was LTFU Patient medically not optimized, continue lasix, metolazone prn Will need cardio follow up as outpatient Meanwhile, change lasix to po from a.m Anticipate d/c a.m . Qualifiers: Congestive heart failure type: combined Qualified Code(s): I50.41 - Acute combined systolic (congestive) and diastolic (congestive) heart failure (6) Coronary artery disease Current Visit: Yes Status: Chronic Assessment and plan: Continue Plavix, Coreg, simvastatin. Qualifiers: Coronary Disease-Associated Artery/Lesion type: [place] artery [place] vs. transplanted heart: [place] heart Associated angina: without angina Qualified Code(s): I25.10 - Atherosclerotic heart disease of [place] coronary artery without angina pectoris - Subjective Interval history: Seen and evaluated at bedside Reports improvement in breathing,pedal Edema has resolved completely. Patient was planned and scheduled for discharge, however blood pressure dropped to systolic of 70s, we will decrease dose of Lasix and monitor for the next 24 hours. Anticipate discharge in the morning. Chart review shows consistent weight loss and cumulative intake and output -3 L. - Constitutional Vitals: Temp Pulse Resp BP Pulse Ox 97.7 F 75 16 94/57 95 02/02/17 14:31 02/02/17 14:31 02/02/17 16:18 02/02/17 14:31 02/02/17 16:18 General appearance: Present: A&O X 3, pleasant, no acute distress, answers questions appropriately - Head Head exam: Present: atraumatic, normocephalic - Eye Eye exam: Present: PERRL, conjuntiva pink, sclera anicteric Pupils: Present: PERRL - Neck Neck exam general surgery: Present: supple, trachea midline. Absent: lymphadenopathy - Respiratory Respiratory exam: Present: CTAB. Absent: accessory muscle use, rales, rhonchi, wheezes - Cardiovascular Cardiovascular exam: Present: RRR, +S1, +S2, systolic murmur. Absent: diastolic murmur, gallop, rubs - GI/Abdominal GI/Abdominal exam: Present: normal bowel sounds, soft, no peritoneal signs. Absent: distended, tenderness - Extremities Exam Extremities exam: Present: warm, radial pulses palpable and symetrical. Absent : calf tenderness, cyanotic, pedal edema - Neurological Exam Neurological exam: Present: alert, CN II-XII intact, oriented X3, no focal deficits. Absent: pronater drift, facial droop, speech deficit - Skin Skin exam: Present: dry, intact Internal Medicine: Result - Labs CBC & Chem 7: 02/01/17 04:38 02/01/17 04:38 Labs: Cardiac Enzymes 01/30/17 01/30/17 Range/Units 17:51 23:29 CK-MB (CK-2) NOT APPLICABLE NOT APPLICABLE (0-4) % - ABG Interpretation ABG results: PT/INR, D-dimer PT 19.1 Seconds (9.4-12.1) H 02/02/17 05:27 Consult Discharge Plan - Plan Referrals: Hakeem Quan [Primary Care Provider] - (Will see Dr. Quan at the assisted living home. No appt. is necessary at this time. Thank you)
[2017-02-02] MEDS: *HR* Warfarin 2 MG TABLET PO SCH (16:40)
[2017-02-03] MEDS: Levalbuterol Neb 1.25 MG/3 ML IH SCH ×2 (04:05→10:38)
[2017-02-03 05:00] LABS: INR 1.6; Prothrombin Time 17.9 Seconds (9.4-12.1)
[2017-02-03] MEDS ORDERED: *HR* HYDROcodone/Acet 5/325 mg TABLET PO ONE (05:00)
[2017-02-03 05:03] LABS: Activated Partial Thrombo Time 28.9 Seconds (26.0-36.0)
[2017-02-03] MEDS: Spironolactone 25 MG TABLET PO SCH (08:36)
[2017-02-03] MEDS: *HR* Digoxin 0.125 MG TABLET PO SCH (08:36)
[2017-02-03] MEDS: SACUBITRIL/VALSARTAN 24/26 MG TABLET PO SCH (08:37)
[2017-02-03] MEDS: Insulin LISPRO 300 UNITS/3 ML VIAL SQ SCH ×2 (08:38→11:59)
[2017-02-03] MEDS ORDERED: Furosemide 40 MG TABLET PO SCH (09:00)
--- NOTE | 2017-02-03 10:09 | Discharge Summary ---
Date of Encounter: 02/03/17 Time of Encounter: 10:09 - Discharge Diagnosis (1) Chronic anemia Priority: Secondary Status: Chronic (2) Atrial fibrillation Priority: Secondary Status: Chronic Qualifiers: Atrial fibrillation type: paroxysmal Qualified Code(s): I48.0 - Paroxysmal atrial fibrillation (3) COPD (chronic obstructive pulmonary disease) Priority: Secondary Status: Chronic Qualifiers: COPD type: unspecified COPD Qualified Code(s): J44.9 - Chronic obstructive pulmonary disease, unspecified (4) DVT prophylaxis Priority: Primary Status: Acute (5) Acute congestive heart failure Priority: Primary Status: Acute Qualifiers: Congestive heart failure type: combined Qualified Code(s): I50.41 - Acute combined systolic (congestive) and diastolic (congestive) heart failure (6) Coronary artery disease Priority: Secondary Status: Chronic Qualifiers: Coronary Disease-Associated Artery/Lesion type: [place] artery [place] vs. transplanted heart: [place] heart Associated angina: without angina Qualified Code(s): I25.10 - Atherosclerotic heart disease of [place] coronary artery without angina pectoris - Discharge Medications Prescriptions: Carvedilol 3.125 mg PO BID #60 tab Home Medications: Albuterol Sulfate [Albuterol Inhaler] 1 puff IH Q6H PRN 01/31/17 [History] Allopurinol [Zyloprim] 300 mg PO 0901/31/17 [History] Budesonide/Formoterol 160/4.5 [Symbicort 160/4.5] 2 puff IH 0900,1700 PRN [History] Clopidogrel [Plavix] 75 mg PO 0900 01/31/17 [History] Digoxin [Lanoxin] 0.125 mg PO 0901/31/17 [History] Docusate [Colace] 100 mg PO 0900 01/31/17 [History] Ergocalciferol (VITAMIN D2) [Vitamin D2] 50,000 unit PO TH 01/31/17 [History] Fluticasone Propionate Nasal [Flonase] 2 spr NS 0900 PRN 01/31/17 [History] Furosemide [Lasix] 40 mg PO 0900 01/31/17 [History] Ipratropium/Albuterol Neb [Duoneb] 3 ml IH 0300,0900,1500,2100 PRN 01/31/17 [ History] Loratadine [Allergy Relief] 10 mg PO 0900 01/31/17 [History] Nitroglycerin [Nitrostat] 0.4 mg SL Q5M PRN MDD 3 TABLETS 01/31/17 [History] Polyethylene Glycol 3350 [MiraLAX Powder Bulk 17.9 Oz] 1 scoop PO DAILY PRN [History] Potassium Chloride [Klor-Con 10] 10 meq PO 0900 01/31/17 [History] Roflumilast [Daliresp] 500 mcg PO 0901/31/17 [History] Sacubitril/Valsartan [Entresto 24 mg-26 mg Tablet] 1 each PO 0800,1600 01/31/17 [History] Sertraline [Zoloft] 100 mg PO 169901/31/17 [History] Simvastatin [Zocor] 20 mg PO 169901/31/17 [History] Spironolactone [Aldactone] 25 mg PO 169901/31/17 [History] Tiotropium [Spiriva] 18 mcg IH 89901/31/17 [History] Warfarin [Coumadin] 2 mg PO 169901/31/17 [History] metOLazone [Zaroxolyn] 2.5 mg PO DAILY PRN 01/31/17 [History] Carvedilol 3.125 mg PO BID #60 tab 02/03/17 [Rx] Allergies/Adverse Reactions: Allergies Oxycodone [From OxyContin] Allergy (Verified 01/31/17 09:22) Hives tramadol Allergy (Verified 01/31/17 09:22) Hives fentyl patch Allergy (Uncoded 01/31/17 09:22) Hives Procedures/tests Complete & Pending: Procedures Performed prior 72 hours Category Date Time Status EV echocardiogram w enhance Stat Y 02/01/17 16:32 Completed Date of admission: 01/30/17 17:30 Primary care physician: Hakeem Quan Discharging clinician: Natalio Julien Anticipated date of discharge: 02/03/17 - Patient Status Disposition: Home Health Service Condition: Good Functional capacity at discharge: independent ambulation Overall status at discharge: patient is progressing back to baseline - Discharge Instructions Instructions: Warfarin (By mouth), Heart Failure (DC) Follow Up With: Hakeem Quan [Primary Care Provider] - (Will see Dr. Quan at the assisted living home. No appt. is necessary at this time. Thank you) - Diet and Activity Activity: resume usual activities as tolerated, wear oxygen at all times Diet: low fat, low cholesterol, low salt diet Interval History: See below Hospital course: Mr. Kumar is a 76 year old male with OMH of CHFrEF, CAD, Afib on coumadin, COPDE wit chronic hypoxic respiratory failure on home O2 He presented with worsening shortness of breath and increasing O2 requirements. He denied chest pain on admission. BNP was 327. Chest x-ray shows cardiomegaly is with possible trace effusions. There is no lobar pneumonia or overt pulmonary edema VQ was completed due to elevated D-dimer , and showed low probability for pulmonary embolism. 2-D echocardiogram showed poor left ventricular systolic ejection fraction at 30 % with indeterminate left ventricular diastolic function. Prior ECHo showed EF of 20% Patient had been lost to follow up with cardiology for about 2 years Of note, even though he has severely decreased EF, he had not being fully medically optimized. He was admitted and managed with IV Lasix 40mg bid, strict fluid restriction and duonebs for his COPD He has made significant improvement and is clinically stable for discharge Dr. Arenas spoke with Cardiology in this admission and they have requested patient follows up with them as ouyt-patient He is on Coumadin, INR is sub-therapeutic , he had been therapeutic on his home dose of Coumadin which we have resumed at this time Patient is recommended to follow up with PCP /INR clinic, and cardiology upon discharge Education provided about fluid and dietary restrictions - Time Spent with Patient Total time spent providing and/or coordinating discharge services: Greater than 30 minutes (40 minutes spent on chart review, patient encounter, medication reconciliation, prescription and discussion with team SW) - Constitutional Vitals: Temp Pulse Resp BP Pulse Ox 97.4 F L 71 16 100/57 93 02/03/17 07:57 02/03/17 07:57 02/03/17 07:57 02/03/17 07:57 02/03/17 07:57 General appearance: Present: A&O X 3, pleasant, no acute distress, answers questions appropriately - Head Head exam: Present: atraumatic, normocephalic - Eye Eye exam: Present: PERRL, conjuntiva pink, sclera anicteric Pupils: Present: PERRL - Neck Neck exam general surgery: Present: supple, trachea midline. Absent: lymphadenopathy - Respiratory Respiratory exam: Present: CTAB. Absent: accessory muscle use, rales, rhonchi, wheezes - Cardiovascular Cardiovascular exam: Present: RRR, +S1, +S2. Absent: diastolic murmur, gallop, rubs, systolic murmur - GI/Abdominal GI/Abdominal exam: Present: normal bowel sounds, soft, no peritoneal signs. Absent: distended, tenderness - Extremities Exam Extremities exam: Present: warm, radial pulses palpable and symetrical. Absent : calf tenderness, cyanotic, pedal edema - Neurological Exam Neurological exam: Present: alert, CN II-XII intact, oriented X3, no focal deficits. Absent: pronater drift, facial droop, speech deficit - Skin Skin exam: Present: dry, intact
[2017-02-03] MEDS: Tiotropium 18 MCG inhalation IH SCH (10:38)
[2017-02-03 11:53] VITALS: BP 96/62
--- NOTE | 2017-02-03 12:47 | Physician Discharge Referral ---
Home Health/Hosp Referral Info Transfer to: Home Health Attending Provider: Dr. Julien Provider in Charge Post Discharge: PCP - Diagnosis (1) Chronic anemia Priority: Primary Status: Chronic (2) Atrial fibrillation Priority: Secondary Status: Chronic (3) COPD (chronic obstructive pulmonary disease) Priority: Secondary Status: Chronic (4) DVT prophylaxis Priority: Primary Status: Acute (5) Acute congestive heart failure Priority: Primary Status: Acute (6) Coronary artery disease Priority: Secondary Status: Chronic - Respiratory Orders Oxygen / L per min (2L /minute, target O2 sat of at least 92%) Smoking Cessation: Smoking cessation has been advised. For more information, call the [place] Tobacco Quit Line at 3-567-DZBA-NOW. - Diet/Nutrition Diet/Nutrition Orders: Cardiac - Services Needed Following services are medically necessary services: Nursing, Physical Therapy, Occupational Therapy - Transfer Medications Prescriptions: Carvedilol 3.125 mg PO BID #60 tab Home Medications: Albuterol Sulfate [Albuterol Inhaler] 1 puff IH Q6H PRN 01/31/17 [History] Allopurinol [Zyloprim] 300 mg PO 0901/31/17 [History] Budesonide/Formoterol 160/4.5 [Symbicort 160/4.5] 2 puff IH 0900,1700 PRN [History] Clopidogrel [Plavix] 75 mg PO 0900 01/31/17 [History] Digoxin [Lanoxin] 0.125 mg PO 0900 01/31/17 [History] Docusate [Colace] 100 mg PO 0900 01/31/17 [History] Ergocalciferol (VITAMIN D2) [Vitamin D2] 50,000 unit PO TH 01/31/17 [History] Fluticasone Propionate Nasal [Flonase] 2 spr NS 0900 PRN 01/31/17 [History] Furosemide [Lasix] 40 mg PO 0900 01/31/17 [History] Ipratropium/Albuterol Neb [Duoneb] 3 ml IH 0300,0900,1500,2100 PRN 01/31/17 [ History] Loratadine [Allergy Relief] 10 mg PO 0900 01/31/17 [History] Nitroglycerin [Nitrostat] 0.4 mg SL Q5M PRN MDD 3 TABLETS 01/31/17 [History] Polyethylene Glycol 3350 [MiraLAX Powder Bulk 17.9 Oz] 1 scoop PO DAILY PRN [History] Potassium Chloride [Klor-Con 10] 10 meq PO 0901/31/17 [History] Roflumilast [Daliresp] 500 mcg PO 0901/31/17 [History] Sacubitril/Valsartan [Entresto 24 mg-26 mg Tablet] 1 each PO 0800,1600 01/31/17 [History] Sertraline [Zoloft] 100 mg PO 169901/31/17 [History] Simvastatin [Zocor] 20 mg PO 169901/31/17 [History] Spironolactone [Aldactone] 25 mg PO 169901/31/17 [History] Tiotropium [Spiriva] 18 mcg IH 89901/31/17 [History] Warfarin [Coumadin] 2 mg PO 169901/31/17 [History] metOLazone [Zaroxolyn] 2.5 mg PO DAILY PRN 01/31/17 [History] Carvedilol 3.125 mg PO BID #60 tab 02/03/17 [Rx] Allergies/Adverse Reactions: Allergies Oxycodone [From OxyContin] Allergy (Verified 01/31/17 09:22) Hives tramadol Allergy (Verified 01/31/17 09:22) Hives fentyl patch Allergy (Uncoded 01/31/17 09:22) Hives Certification: Further, I certify that my clinical findings support that this patient is homebound (i.e. absences from home require considerable and taxing effort and are for medical reasons or caodaism services or infrequently or short duration when for other reasons) because: Homebound Reason: Patient requires assistance of a person or device to safely leave home, Severity of cardiac or pulmonary status limits activity tolerance Attestation: My signature below is to certify that this patient is under my care and that I, or nurse practitioner, or a physician's or assistant working with me, has a face-to -face encounter with this patient.
[2017-02-03] MEDS ORDERED: *HR* Warfarin 4 MG TABLET PO ONE (18:00)
[2017-02-04] MEDS ORDERED: *HR* Warfarin 2 MG TABLET PO SCH (18:00)
== END 2017-02-03 14:18 | disposition home health service (06) | DRG 292 ==
LOC: EMEROO 11:23 → 3ANU 11:23 → SUATTDRO 17:30
PROVIDERS: ADMIT Hospitalist; ATTEND Internal Medicine

== ENCOUNTER 2017-06-21 16:48 | Inpatient (IN) ==
--- NOTE | 2017-06-21 16:53 | Emergency Department Note ---
Disposition Clinical Impression: AVN (avascular necrosis of bone) Disposition: Admitted As Inpatient Condition: Fair Referrals: NONE,PCP [Primary Care Provider] - Forms: ED Satisfaction Letter Time of Disposition: 18:40 Lower Extremity Injury HPI - General Chief Complaint: ED Extremity Injury, Lower Stated Complaint: hip pain Time Seen by Provider: 06/21/17 16:49 Source: patient, EMS Mode of arrival: EMS Limitations: no limitations Nursing Notes Reviewed: Yes Vital Signs Reviewed: Yes - History of Present Illness HPI Narrative: 76-year-old who was at the custodial and fell on the obtain an x-ray that showed possible fracture. Patient does complain of left hip pain. Injury location: Bilateral hip (Left greater than right) Onset (ago): Just [employer] Mechanism of Injury: fall Context: fall Place: other Pain Severity: moderate (long term) Improves with: nothing Worsens with: movement Associated symptoms: Reports: unable to bear weight - Related Data Home Medications Medication Instructions Recorded Confirmed Albuterol Sulfate [Albuterol 1 puff IH Q6H PRN 01/31/17 01/31/17 Inhaler] Allopurinol [Zyloprim] 300 mg PO 0900 01/31/17 01/31/17 Budesonide/Formoterol 160/4.5 2 puff IH 0900,1700 PRN 01/31/17 01/31/17 [Symbicort 160/4.5] Clopidogrel [Plavix] 75 mg PO 0900 01/31/17 01/31/17 Digoxin [Lanoxin] 0.125 mg PO 0900 01/31/17 01/31/17 Docusate [Colace] 100 mg PO 0900 01/31/17 01/31/17 Ergocalciferol (VITAMIN D2) 50,000 unit PO TH 01/31/17 01/31/17 [Vitamin D2] Fluticasone Propionate Nasal 2 spr NS 0900 PRN 01/31/17 01/31/17 [Flonase] Furosemide [Lasix] 40 mg PO 0900 01/31/17 01/31/17 Ipratropium/Albuterol Neb [Duoneb] 3 ml IH 0300,0900,1500,2100 PRN 01/31/17 Loratadine [Allergy Relief] 10 mg PO 0900 01/31/17 01/31/17 Nitroglycerin [Nitrostat] 0.4 mg SL Q5M PRN MDD 3 TABLETS 01/31/17 01/31/17 Polyethylene Glycol 3350 [MiraLAX 1 scoop PO DAILY PRN 01/31/17 01/31/17 Powder Bulk 17.9 Oz] Potassium Chloride [Klor-Con 10] 10 meq PO 0900 01/31/17 01/31/17 Roflumilast [Daliresp] 500 mcg PO 0900 01/31/17 01/31/17 Sacubitril/Valsartan [Entresto 24 1 each PO 0800,1600 01/31/17 01/31/17 mg-26 mg Tablet] Sertraline [Zoloft] 100 mg PO 1700 01/31/17 01/31/17 Simvastatin [Zocor] 20 mg PO 1700 01/31/17 01/31/17 Spironolactone [Aldactone] 25 mg PO 1700 01/31/17 01/31/17 Tiotropium [Spiriva] 18 mcg IH 0900 01/31/17 01/31/17 Warfarin [Coumadin] 2 mg PO 1700 01/31/17 01/31/17 metOLazone [Zaroxolyn] 2.5 mg PO DAILY PRN 01/31/17 01/31/17 Previous Rx's Medication Instructions Recorded Carvedilol 3.125 mg PO BID #60 tab 02/03/17 Allergies Allergy/AdvReac Type Severity Reaction Status Date / Time Oxycodone [From OxyContin] Allergy Hives Verified 01/31/17 09:22 tramadol Allergy Hives Verified 01/31/17 09:22 fentyl patch Allergy Hives Uncoded 01/31/17 09:22 All systems ED: reviewed and negative except as stated. Constitutional: Denies: fever, chills, weakness, weight change Eyes: Denies: eye pain, eye discharge, vision change ENT ED: Denies: ear pain, throat pain, dental pain, hearing loss, epistaxis, congestion, dysphagia Cardiovascular: Denies: chest pain, palpitations, dyspnea on exertion, edema, syncope Respiratory: Denies: cough, dyspnea, wheezes, hemoptysis, stridor Gastrointestinal: Denies: abdominal pain, nausea, vomiting, diarrhea, constipation, hematemesis, melena, hematochezia Genitourinary: Denies: urgency, dysuria, frequency, hematuria Musculoskeletal: Reports: arthralgia. Denies: back pain, neck pain, myalgia Integumentary: Denies: rash, abrasion, lesions Neurological: Denies: headache, weakness, numbness, paresthesias, confusion, abnormal gait, vertigo Psychiatric: Denies: anxiety, depression, suicidal thoughts, homicidal thoughts , auditory hallucinations, visual hallucinations Endocrine: Denies: fatigue Hematological/Lymphatic: Denies: easy bleeding, easy bruising Allergic/Immunologic: Denies: facial swelling, urticaria Past Medical History - Past Medical History Medical history: Reports: atrial fibrillation, COPD, coronary artery disease, diabetes, hypertension, other Surgical history: Reports: coronary bypass (CABG) Psychiatric history: Reports: no psych history - Social History Smoking Status: Former smoker Smokeless Tobacco Status: No Alcohol use: Reports: occasionally Drug use: Reports: none Physical Exam - General Limitations: no limitations General appearance: alert, in no apparent distress - Head Head exam: atraumatic, normocephalic, normal inspection - Eye Eye exam: Present: normal appearance, PERRL, EOMI - ENT ENT exam: normal exam, normal oropharynx, mucous membranes moist - Neck Neck exam: Present: normal inspection, full ROM, trachea midline - Chest Chest inspection: Present: normal inspection, symmetric chest wall rise - Respiratory Respiratory exam: Present: normal lung sounds bilaterally - Cardiovascular Cardiovascular exam: Present: regular rate, normal rhythm, normal heart sounds - Abdominal Exam Abdominal exam: Present: soft, Non-Tender. Absent: tenderness, distention, guarding, rebound, rigidity - Expanded Lower Extremity Exam Hip/Pelvis exam: Present: tenderness (Left hip), shortening Neurovascular/Tendon exam: Absent: motor deficit, sensory deficit, tendon deficit Gait: not tested/not observed - Back Exam Back exam: Present: normal inspection, full ROM. Absent: tenderness - Neurological Exam Neurological exam: Present: alert, oriented X3 - Psychiatric Psychiatric exam: Present: normal affect, normal mood - Skin Skin exam: Present: warm, dry, intact, normal color Course - Reevaluation(s) Reevaluation #1: 76-year-old multiple falls who comes in complaining of hip pain. CT shows no significant AVN and degenerative changes. Patient has significant pain since fall. Patient will be admitted for MRSA and orthopedic evaluation. Time: 18:38 - Consultations Consultation #1: Discussed with Dr. Campuzano, will review images and return call. Time: 18:05 Consultation #2: Discussed with Dr. Haider radiology.Compression of the femoral head related to AVN. Time: 18:06 Consultation #3: Discussed with , admit MR hip Time: 18:37 Additional Consultation(s): [id number] buzz with Sakina Langston, admit. Vital Signs Temperature 97.7 F 06/21/17 16:51 Pulse Rate 74 06/21/17 16:51 Respiratory Rate 18 06/21/17 16:51 Blood Pressure 119/63 06/21/17 16:51 O2 Sat by Pulse Oximetry 96 06/21/17 16:51 Temperature 97.7 F 06/21/17 16:51 Pulse Rate 74 06/21/17 16:51 Respiratory Rate 18 06/21/17 16:51 Blood Pressure 119/63 06/21/17 16:51 O2 Sat by Pulse Oximetry 96 06/21/17 16:51 Oxygen Delivery Oxygen Delivery Room Air Extremity Injury, Lower - Lab Data Lab results reviewed: Yes I reviewed the patient's lab results. Result diagrams: 06/21/17 19:01 06/21/17 18:43 Lab Results 06/21/17 06/21/17 06/21/17 Range/Units 18:43 18:43 19:01 WBC 10.1 (4.3-11.1) K/mcL RBC 4.14 L (4.19-5.50) M/mcL Hgb 11.5 L (12.9-16.9) g/dL Hct 36.5 L (37.5-50.1) % MCV 88.2 (83.0-100.0) fL MCH 27.8 L (28.0-33.3) pg MCHC 31.5 L (31.6-35.5) g/dL RDW 17.0 H (11.5-14.5) % Plt Count 260 (140-400) K/mcL MPV 10.2 (9.4-12.4) fL Immature Gran % 0.4 (0-4) % Seg Neutrophils % 67.3 % Lymphocytes % 22.2 % Monocytes % 7.1 % Eosinophils % 2.8 % Basophils % 0.2 % Neutrophils # 6.8 (1.6-8.9) K/mcL Lymphocytes # 2.2 (0.6-4.6) K/mcL Monocytes # 0.7 (0.0-1.3) K/mcL Eosinophils # 0.3 (0.0-0.6) K/mcL Basophils # 0.0 (0.0-0.2) K/mcL PT 17.0 H (9.4-12.1) Seconds INR 1.6 APTT 33.6 (26.0-36.0) Seconds Sodium 139 (136-145) mEq/L Potassium 4.7 H (3.5-4.5) mEq/L Chloride 104 (98-109) mEq/L Carbon Dioxide 29 (19-29) mEq/L BUN 42 H (8-26) mg/dL Creatinine 1.49 H (0.72-1.25) mg/dL Est GFR ( Amer) 56 L (> 60) Est GFR (Non-Af Amer) 46 L (> 60) BUN/Creatinine Ratio 28 H (6-26) Glucose 99 (70-99) mg/dL Calculated Osmolality 299 (280-300) Calcium 9.5 (8.6-10.8) mg/dL - Radiology Data Radiology results reviewed: Yes I reviewed the patient's radiology results. 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 Severe central canal stenosis at L4-L5. D/ / Saul Haider MD / Saul Haider MD Interpreting Provider: Saul Haider MD Head CT 06/21/17 18:34 IMPRESSION: No acute intracranial abnormality. Atrophy and chronic small vessel ischemic white matter disease. D/ / Saul Haider MD / Saul Haider MD Interpreting Provider: Saul Haider MD
[2017-06-21 18:57] LABS: INR 1.6
[2017-06-21 19:00] LABS: Activated Partial Thrombo Time 33.6 Seconds (26.0-36.0)
[2017-06-21 19:04] LABS: Calcium 9.5 mg/dL (8.6-10.8); Potassium 4.7 mEq/L (3.5-4.5)
[2017-06-21 19:08] LABS: Basophils % 0.2 %; Eosinophils # 0.3 K/mcL (0.0-0.6); Eosinophils % 2.8 %; Hematocrit 36.5 % (37.5-50.1); Hemoglobin 11.5 g/dL (12.9-16.9); Immature Granulocytes % 0.4 % (0-4); Lymphocytes # 2.2 K/mcL (0.6-4.6); Lymphocytes % 22.2 %; Mean Corpuscular HGB Conc 31.5 g/dL (31.6-35.5); Mean Corpuscular Hemoglobin 27.8 pg (28.0-33.3); Mean Corpuscular Volume 88.2 fL (83.0-100.0); Mean Platelet Volume 10.2 fL (9.4-12.4); Monocytes # 0.7 K/mcL (0.0-1.3); Monocytes % 7.1 %; Neutrophils # 6.8 K/mcL (1.6-8.9); Platelet Count 260 K/mcL (140-400); Red Blood Count 4.14 M/mcL (4.19-5.50); Segmented Neutrophils % 67.3 %
[2017-06-21] MEDS ORDERED: Ondansetron ODT 4 MG TAB.RAPDIS SL ONE (20:01)
[2017-06-21] MEDS ORDERED: *HR* Morphine 2 MG/ML SYRINGE IVP ONE (20:01)
[2017-06-21] MEDS ORDERED: *HR* Morphine 2 MG/ML SYRINGE IVP PRN (21:29)
[2017-06-21] MEDS ORDERED: Acetaminophen 325 MG TABLET PO PRN (21:29)
[2017-06-21] MEDS ORDERED: Ondansetron 4 MG/2 ML VIAL IVP PRN (21:29)
[2017-06-21] MEDS ORDERED: Naloxone 0.4 MG/ML INJ IVP PRN (21:29)
[2017-06-21] MEDS ORDERED: Albuterol 2.5 MG/3 ML NEBULIZER IH PRN (21:38)
[2017-06-21] MEDS ORDERED: Ipratropium/Albuterol Neb 3 ML IH PRN (21:38)
[2017-06-21] MEDS ORDERED: Nitroglycerin 0.4 MG TAB.SUBL SL PRN (21:39)
--- NOTE | 2017-06-21 21:58 | Internal Med History&Physical ---
Date of Encounter: 06/21/17 Time of Encounter: 20:50 Assessment and Plan (1) AVN (avascular necrosis of bone) Current visit: Yes Status: Acute 1. I suspect this has been chronic and aggravated by today's fall. 2. Orthopedics has been consulted by the ER. 3. Irregardless of surgery, he will eventually need full PT/OT evaluation and likely inpatient rehab upon discharge. (2) Fall Current visit: Yes Status: Acute 1. Patient describes a mechanical fall and history of frequent falls. 2. PT/OT evaluation once medically stable. 3. Given frequent fall history, will need to reconsider resuming anticoagulation. For now, will stop Coumadin. 4. Patient had ECHO in January. Will order Carotid Dopplers in AM and monitor glucose. However, patient describes fall and not syncope. Qualifiers: Encounter type: initial encounter Qualified Code(s): W19.XXXA - Unspecified fall, initial encounter (3) Atrial fibrillation Current visit: No Status: Chronic 1. Will order EKG and place on telemetry. 2. Patient currently rate controlled. 3. Stop Coumadin for now for possible surgery and given frequent falls. 4. I'm not sure patient is a good candidate for chronic anti-coagulation given his fall risk. 5. Check digoxin level in the morning. Qualifiers: Atrial fibrillation type: paroxysmal Qualified Code(s): I48.0 - Paroxysmal atrial fibrillation (4) COPD (chronic obstructive pulmonary disease) Current visit: No Status: Chronic 1. Continue home meds as appropriate. 2. Will order some PRN nebulized treatments as well. 3. Monitor clinically. Qualifiers: COPD type: unspecified COPD Qualified Code(s): J44.9 - Chronic obstructive pulmonary disease, unspecified (5) Coronary artery disease Current visit: No Status: Chronic 1. Currently stable and asymptomatic. 2. Will place on telemetry and order EKG. 3. Continue home meds as appropriate. 4. Last ECHO in January of this year revealed LVEF of 30%. Qualifiers: Coronary Disease-Associated Artery/Lesion type: [place] artery [place] vs. transplanted heart: [place] heart Associated angina: without angina Qualified Code(s): I25.10 - Atherosclerotic heart disease of [place] coronary artery without angina pectoris (6) DVT prophylaxis Current visit: No Status: Acute 1. Start Heparin SQ tomorrow give current INR elevation from Coumadin. Internal Medicine - H&P: HPI Chief complaint: S/P Fall; left hip pain Admitted From: Emergency Dept Plans for Post Hospital Care: Transfer [facility] Facility History of present illness: Mr. Kumar is a 76 year old male who presents to the ER today with complaints of left hip pain after sustaining a fall. He currently resides at an [facility] for ongoing rehabilitation. He states he was sitting in his bed earlier today, and he slipped and fell out of his bed sustaining an injury to his left hip, left forearm, and left ear lobe. Work-up in the ER revealed he was found to have findings concerning for avascular necrosis of the hip versus hip fracture. Because of the pain and fall, he was admitted to the hospitalist service with consult to orthopedics. Upon my assessment of the patient, he has mild pain and denies any complaints presently. Unfortunately, he is a very poor historian and does not know or understand why he is on multiple medications. He takes Coumadin but cannot tell me what exactly why. I reviewed his old records and obtained most of the history from old records. He has a history of atrial fibrillation and chronic systolic congestive heart failure. I assume he is on Coumadin for his atrial fibrillation. Upon further history, patient states he has had increased falling over the last several months and years. He states he is unsteady on his feet and is unable to balance himself frequently. He denies any prior stroke, but he does have heart disease and COPD. He takes multiple medications which can lower his blood pressure and fluid balance. He denies any chest pain , syncope, or near-syncope. He states today's event was a mechanical fall as he slipped out of bed and sustained the above injury. Of note, CT of the head in the ER was negative. Past Med Surg Social Fam HX - Past Medical History Source: patient, old records reviewed Medical history: atrial fibrillation, COPD, coronary artery disease, diabetes, hypertension, other Psychiatric history: no psych history - Past Surgical History Surgical History: coronary bypass (CABG) - Social History Smoking Status: Former smoker Smokeless Tobacco Status: No Alcohol use: occasionally Drug use: none Current living situation: [facility] Activity Level: Independent ambulation Recent Out of Country Travel Within the Last 8 Weeks: No - Family History Daughter Age: 46 Family Member Ethnicity: Non- Living Status: Still Living Hx Family Cardiac Disorders: No Hx Family Respiratory Disorders: No Hx Family Cancer: No Hx Family GI Disorders: No Hx Family Genitourinary Disorders: No Hx Family Endocrine Disorder: No Hx Family Musculoskeletal Disorders: No Hx Family Neuromuscular Disorders: No Hx Family Neurologic Disorders: No Hx Family HEENT Disorders: No Hx Family Autoimmune Disorders: No Hx Family Reproductive Disorders: No Hx Family Psychosocial Disorders: No Hx Family Medical Disorders: No Mother History Unknown: Yes Living Status: Father History Unknown: Yes Living Status: Internal Medicine - H&P: Meds Albuterol Sulfate [Albuterol Inhaler] 1 puff IH Q6H PRN 01/31/17 [History] Allopurinol [Zyloprim] 300 mg PO QAM 01/31/17 [History] Budesonide/Formoterol 160/4.5 [Symbicort 160/4.5] 2 puff IH BID 01/31/17 [ History] Digoxin [Lanoxin] 0.125 mg PO QAM 01/31/17 [History] Docusate [Colace] 100 mg PO QA 01/31/17 [History] Ergocalciferol (VITAMIN D2) [Vitamin D2] 50,000 unit PO TH 01/31/17 [History] Fluticasone Propionate Nasal [Flonase] 2 spr NS QA 01/31/17 [History] Furosemide [Lasix] 80 mg PO QAM 01/31/17 [History] Ipratropium/Albuterol Neb [Duoneb] 3 ml IH Q6H 01/31/17 [History] Loratadine [Allergy Relief] 10 mg PO QA 01/31/17 [History] Nitroglycerin [Nitrostat] 0.4 mg SL Q5M PRN 01/31/17 [History] Potassium Chloride [Klor-Con 10] 10 meq PO QA 01/31/17 [History] Sacubitril/Valsartan [Entresto 24 mg-26 mg Tablet] 1 each PO BID 01/31/17 [ History] Simvastatin [Zocor] 20 mg PO HS 01/31/17 [History] Spironolactone [Aldactone] 25 mg PO QAM 01/31/17 [History] Tiotropium [Spiriva] 18 mcg IH QA 01/31/17 [History] Warfarin [Coumadin] 2 mg PO MOWEFR 01/31/17 [History] metOLazone [Zaroxolyn] 2.5 mg PO QAM 01/31/17 [History] Acetaminophen [Tylenol] 1,000 mg PO Q4H PRN 06/21/17 [History] Polyethylene Glycol 3350 [MiraLAX] 17 gm PO DAILY PRN 06/21/17 [History] Sertraline [Zoloft] 50 mg PO QAM 06/21/17 [History] Warfarin [Coumadin] 1 mg PO SUTUTHSA 06/21/17 [History] 3 Allergy/AdvReac Type Severity Reaction Status Date / Time Oxycodone [From OxyContin] Allergy Hives Verified 01/31/17 09:22 tramadol Allergy Hives Verified 01/31/17 09:22 fentyl patch Allergy Hives Uncoded 01/31/17 09:22 - Constitutional Constitutional: falls, no chills, no fever(s), no night sweats, no weight gain, no weight loss - EENT Eyes: no blurry vision, no change in vision Ears: no ear pain, no tinnitus Nose, mouth and throat: no nasal congestion, no sinus pressure, no sore throat - Cardiovascular Cardiovascular ROS IM: no chest pain, no diaphoresis, no dyspnea, no edema - Respiratory Respiratory: no cough, no hemoptysis, no chest congestion, no excessive phlegm production - Gastrointestinal Gastrointestinal: no abdominal pain, no diarrhea, no nausea, no vomiting - Genitourinary Genitourinary ROS male: no dysuria, no flank pain, no hematuria - Musculoskeletal Musculoskeletal ROS IM: arthralgias, no back pain Additional comments: pain in left hip, left forearm after fall - Integumentary Integumentary IM: no rash, no jaundice - Neurological Neurological ROS: dizziness, frequent falls, no focal weakness, no headache(s), no numbness - Psychiatric Psychiatric: no anxiety, no depression - Endocrine Endocrine IM: no polydipsia, no polyuria - Hematologic/Lymphatic Hematologic/Lymphatic: easy bruising - Allergic/Immunologic Allergic/Immunologic: no GI upset with certain foods - Constitutional Vitals: Temp Pulse Resp BP Pulse Ox 97.7 F 75 16 111/58 93 06/21/17 20:47 06/21/17 20:47 06/21/17 20:47 06/21/17 20:47 06/21/17 20:47 General appearance: Present: cooperative, A&O X 3, pleasant, answers questions appropriately - Head Additional comments: bruise to left preauricular area and left ear lobe - Expanded Head Exam Head exam expanded: Present: contusion (as above). Absent: abrasion, general tenderness, laceration, raccoon eyes - Eye Eye exam: Present: EOMI, normal appearance, PERRL. Absent: scleral icterus Pupils: Present: normal accommodation - ENT ENT exam: Present: mucous membranes dry, normal exam - Neck Neck exam general surgery: Present: full ROM, supple. Absent: tenderness, nuchal rigidity - Expanded Neck Exam Neck exam: Absent: carotid bruit - Respiratory Respiratory exam: Present: CTAB. Absent: chest wall tenderness, rales, respiratory distress, rhonchi, wheezes - Cardiovascular Cardiovascular exam: Present: irregular rhythm, +S1, +S2. Absent: diastolic murmur, JVD, systolic murmur - GI/Abdominal GI/Abdominal exam: Present: soft. Absent: guarding, hepatomegaly, mass, rebound , splenomegaly, tenderness - Extremities Exam Extremities exam: Present: normal capillary refill, tenderness (left hip ( brusie noted); left forearm with superficial laceration and bruising), warm. Absent: calf tenderness, pedal edema - Back Exam Back exam: Absent: CVA tenderness (L), CVA tenderness (R) - Neurological Exam Neurological exam: Present: altered, CN II-XII intact, oriented X3, no focal deficits - Psychiatric Psychiatric exam: Present: normal affect, normal mood - Skin Skin exam: Present: dry, warm Additional comments: bruising as noted above Internal Med - H&P Results - Labs CBC & Chem 7: 06/21/17 19:01 06/21/17 18:43
[2017-06-22] MEDS: *HR* Heparin 5,000 UNIT/ML VIAL SQ SCH ×2 (05:45→16:55)
[2017-06-22 06:19] LABS: Basophils % 0.2 %; Eosinophils # 0.2 K/mcL (0.0-0.6); Eosinophils % 2.6 %; Hematocrit 34.8 % (37.5-50.1); Immature Granulocytes % 0.2 % (0-4); Lymphocytes % 23.6 %; Mean Corpuscular HGB Conc 31.6 g/dL (31.6-35.5); Mean Corpuscular Volume 88.5 fL (83.0-100.0); Mean Platelet Volume 10.3 fL (9.4-12.4); Monocytes # 0.6 K/mcL (0.0-1.3); Monocytes % 7.3 %; Neutrophils # 5.6 K/mcL (1.6-8.9); Platelet Count 236 K/mcL (140-400); Red Blood Count 3.93 M/mcL (4.19-5.50); Segmented Neutrophils % 66.1 %
[2017-06-22 06:23] LABS: INR 1.6; Prothrombin Time 17.5 Seconds (9.4-12.1)
[2017-06-22 06:36] LABS: Alanine Aminotransferase 9 Units/L (0-55); Albumin 2.7 g/dL (3.5-5.0); Albumin/Globulin Ratio 0.7 (1.1-2.2); Alkaline Phosphatase 85 Units/L (38-126); Aspartate Amino Transferase 16 Units/L (5-34); BUN/Creatinine Ratio 32 (6-26); Bilirubin,Total 0.5 mg/dL (0.2-1.2); Blood Urea Nitrogen 36 mg/dL (8-26); Calcium 9.3 mg/dL (8.6-10.8); Carbon Dioxide 28 mEq/L (19-29); Chloride 104 mEq/L (98-109); Globulin 3.9 g/dL (2.4-3.5); Glucose 88 mg/dL (70-99); Magnesium 1.6 mg/dL (1.6-2.6); Osmolality,Calculated 296 (280-300); Potassium 4.5 mEq/L (3.5-4.5); Sodium 139 mEq/L (136-145); Total Protein 6.6 g/dL (6.0-8.3); eGFR For African Americans > 60 (> 60); eGFR For Non-African Americans > 60 (> 60)
[2017-06-22 06:44] LABS: Digoxin 1.6 ng/mL (0.8-2.0)
--- NOTE | 2017-06-22 07:26 | Orthopedic Consult Note ---
Date of Encounter: 06/22/17 Time of Encounter: 07:24 Assessment and Plan (1) Left hip pain Current Visit: Yes Status: Acute The patient has acute on chronic left hip pain after fall. He has significant avascular necrosis which was known prior to the injury. My suspicion for occult hip fracture is low, however this is a possibility and therefore we will obtain an MRI of the left hip to evaluate for this. I will also order a left elbow and left knee x-ray given injuries identified by myself this morning to the skin. I will follow up later today after the studies are performed to provide further recommendations. We will keep the patient nothing by mouth for now. History of Present Illness HPI: Mr. Kumar is a 76 year old male who has multiple medical comorbidities. He is on Coumadin likely for atrial fibrillation. He also has a known history of avascular necrosis to the left hip and has had chronic hip pain. He is currently at a rehabilitation facility. The patient apparently had a fall and was sen in the ED for acute on chronic left hip pain and concern for possible occult fracture despite negative CT scans. The patient was admitted to the hospitalist and orthopedics was counseled that. On my evaluation this morning the patient is a very poor historian and is unable to provide any meaningful history regarding the recent injury or his chronic left hip pain other than that his hip has hurt him for a long time and he does have acute pain. He denies any numbness or tingling. He denies any modifying factors. He has no other complaints. Past Med Surg Social Fam HX - Past Medical History Medical history: atrial fibrillation, COPD, coronary artery disease, diabetes, hypertension, other Psychiatric history: no psych history - Past Surgical History Surgical History: coronary bypass (CABG) - Social History Smoking Status: Former smoker Smokeless Tobacco Status: No Alcohol use: occasionally Drug use: none - Family History Daughter Age: 46 Family Member Ethnicity: Non- Living Status: Still Living Hx Family Cardiac Disorders: No Hx Family Respiratory Disorders: No Hx Family Cancer: No Hx Family GI Disorders: No Hx Family Genitourinary Disorders: No Hx Family Endocrine Disorder: No Hx Family Musculoskeletal Disorders: No Hx Family Neuromuscular Disorders: No Hx Family Neurologic Disorders: No Hx Family HEENT Disorders: No Hx Family Autoimmune Disorders: No Hx Family Reproductive Disorders: No Hx Family Psychosocial Disorders: No Hx Family Medical Disorders: No Mother History Unknown: Yes Living Status: Father History Unknown: Yes Living Status: Medications and Allergies Albuterol Sulfate [Albuterol Inhaler] 1 puff IH Q6H PRN 01/31/17 [History] Allopurinol [Zyloprim] 300 mg PO QAM 01/31/17 [History] Budesonide/Formoterol 160/4.5 [Symbicort 160/4.5] 2 puff IH BID 01/31/17 [ History] Digoxin [Lanoxin] 0.125 mg PO QAM 01/31/17 [History] Docusate [Colace] 100 mg PO QAM 01/31/17 [History] Ergocalciferol (VITAMIN D2) [Vitamin D2] 50,000 unit PO TH 01/31/17 [History] Fluticasone Propionate Nasal [Flonase] 2 spr NS QAM 01/31/17 [History] Furosemide [Lasix] 80 mg PO QAM 01/31/17 [History] Ipratropium/Albuterol Neb [Duoneb] 3 ml IH Q6H 01/31/17 [History] Loratadine [Allergy Relief] 10 mg PO QAM 01/31/17 [History] Nitroglycerin [Nitrostat] 0.4 mg SL Q5M PRN 01/31/17 [History] Potassium Chloride [Klor-Con 10] 10 meq PO QAM 01/31/17 [History] Sacubitril/Valsartan [Entresto 24 mg-26 mg Tablet] 1 each PO BID 01/31/17 [ History] Simvastatin [Zocor] 20 mg PO HS 01/31/17 [History] Spironolactone [Aldactone] 25 mg PO QAM 01/31/17 [History] Tiotropium [Spiriva] 18 mcg IH QAM 01/31/17 [History] Warfarin [Coumadin] 2 mg PO MOWEFR 01/31/17 [History] metOLazone [Zaroxolyn] 2.5 mg PO QAM 01/31/17 [History] Acetaminophen [Tylenol] 1,000 mg PO Q4H PRN 06/21/17 [History] Polyethylene Glycol 3350 [MiraLAX] 17 gm PO DAILY PRN 06/21/17 [History] Sertraline [Zoloft] 50 mg PO QAM 06/21/17 [History] Warfarin [Coumadin] 1 mg PO SUTUTHSA 06/21/17 [History] 3 Allergy/AdvReac Type Severity Reaction Status Date / Time Oxycodone [From OxyContin] Allergy Hives Verified 01/31/17 09:22 tramadol Allergy Hives Verified 01/31/17 09:22 fentyl patch Allergy Hives Uncoded 01/31/17 09:22 All Systems Reviewed: Constitutional and musculoskeletal systems were reviewed and are negative unless otherwise stated in history of present illness. Physical Exam - Constitutional Vitals: Temp Pulse Resp BP Pulse Ox 97.7 F 70 16 109/55 95 06/22/17 06:54 06/22/17 06:54 06/22/17 06:54 06/22/17 06:54 06/22/17 06:54 Constitutional -Vitals reviewed -The patient is well developed and well nourished. -Mood is pleasant. -The patient is well groomed. Psychiatric -Slowed cognition -The patient is fully alert and oriented x 3. Respiratory: -Respiratory effort normal Abdomen: -Soft abdomen -Non tender -Non distended: Left upper extremity: -No deformities. Superficial skin tearing over the olecranon. -No tenderness to palpation throughout. -No significant pain with passive motion of the shoulder, elbow, wrist, and fingers within the limits of the bed. -Able to make an "OK" sign, cross the index and long fingers, and extend the thumb. -Sensation grossly intact to light touch throughout the median, radial, and ulnar distributions. -Radial pulse is present; Fingers have good capillary refill. Right upper extremity: -No deformities. The overlying skin is intact. No obvious signs of acute trauma. -No tenderness to palpation throughout. -No significant pain with passive motion of the shoulder, elbow, wrist, and fingers within the limits of the bed. -Able to make an "OK" sign, cross the index and long fingers, and extend the thumb. -Sensation grossly intact to light touch throughout the median, radial, and ulnar distributions. -Radial pulse is present; Fingers have good capillary refill. Left lower extremity: -He holds the hip in a slightly flexed position. -There is a transverse 6 cm skin tear with Steri-Strips going across. -Mild tenderness over the anterior knee. No other tenderness throughout. -Significant stiffness of the left hip and moderate pain with passive motion of the hip. -No other tenderness throughout. -Able to dorsiflex and plantarflex the ankle and toes. -Sensation is grossly intact to light touch throughout the sural, saphenous, superficial peroneal, and deep peroneal distributions. -Toes have good capillary refill. Right lower extremity: -No deformities. The overlying skin is intact. No obvious signs of acute trauma. -No tenderness to palpation throughout. -No pain with passive motion of the hip, knee, ankle, and toes within the limits of the bed. -No pain with axial loading of the thigh. -Able to dorsiflex and plantarflex the ankle and toes. -Sensation is grossly intact to light touch throughout the sural, saphenous, superficial peroneal, and deep peroneal distributions. -Toes have good capillary refill. Diagnostic Imaging: I did personally review and interpret the CT scan of the left hip which shows significant end-stage avascular necrosis with complete loss of joint space. No definite fractures are seen Results - Labs Result Diagrams: 06/22/17 06:10 06/22/17 06:10 Labs: Abnormal lab results RBC 3.93 M/mcL (4.19-5.50) L 06/22/17 06:10 Hgb 11.0 g/dL (12.9-16.9) L 06/22/17 06:10 Hct 34.8 % (37.5-50.1) L 06/22/17 06:10 RDW 17.0 % (11.5-14.5) H 06/22/17 06:10 PT 17.5 Seconds (9.4-12.1) H 06/22/17 06:10 BUN 36 mg/dL (8-26) H 06/22/17 06:10 BUN/Creatinine Ratio 32 (6-26) H 06/22/17 06:10 POC Glucose 104 (58-89) H 06/21/17 20:50 Albumin 2.7 g/dL (3.5-5.0) L 06/22/17 06:10 Globulin 3.9 g/dL (2.4-3.5) H 06/22/17 06:10 Albumin/Globulin Ratio 0.7 (1.1-2.2) L 06/22/17 06:10 H & H 06/22/17 Range/Units 06:10 Hgb 11.0 L (12.9-16.9) g/dL Hct 34.8 L (37.5-50.1) % All other labs normal. Consult Discharge Plan - Plan Referrals: NONE,PCP [Primary Care Provider] -
[2017-06-22] MEDS: Budesonide/Formoterol 160/4.5 MDI IH SCH ×2 (08:13→20:41)
[2017-06-22] MEDS: Tiotropium 18 MCG inhalation IH SCH (08:13)
[2017-06-22] MEDS ORDERED: SACUBITRIL/VALSARTAN 24/26 MG TABLET PO SCH (09:00)
[2017-06-22] MEDS: *HR* Digoxin 0.125 MG TABLET PO SCH (09:59)
[2017-06-22] MEDS: Spironolactone 25 MG TABLET PO SCH (09:59)
[2017-06-22] MEDS: Furosemide 40 MG TABLET PO SCH (09:59)
[2017-06-22] MEDS: metOLazone 2.5 MG TABLET PO SCH (09:59)
[2017-06-22] MEDS: Loratadine 10 MG TABLET PO SCH (10:00)
[2017-06-22] MEDS: Fluticasone Propionate Nasal 50 MCG/SPRAY BOTTLE NS SCH (10:00)
--- NOTE | 2017-06-22 13:51 | Carotid Imaging Report ---
Carotid Duplex Patient Name:Timbo Kumar Order Number:[id number] Procedure Date:06/22/2017 Date:2Age:76 yrs Gender:Male Rt.BP:109 / 55 mmHgHeart Rate: Location:[facility] Room #: [facility] Book[employer] Manager:SHOBHA SextonT, RDCS Referring MD:Anson Win MD manager ship:None Reading MD:Saul Dalton MD Primary Indications:multiple falls Risk Factors Yes/No Hypertension Yes Diabetes Yes Smoker Previous Yes Impressions: The bilateral carotid arteries have minimal plaque throughout. Findings Carotid Duplex: Right: The right proximal common carotid artery has a PSV of 95 cm/s and a EDV of 7 cm/s. The right mid common carotid artery has a PSV of 75 cm/s and a EDV of 9 cm/s. The right distal common carotid artery has a PSV of 89 cm/s and a EDV of 10 cm/s. The right bifurcation has a PSV of 89 cm/s and a EDV of 8 cm/s. There is smooth homogeneous plaque. The right proximal internal carotid artery has a PSV of 76 cm/s and a EDV of 9 cm/s. The right mid internal carotid artery has a PSV of 87 cm/s and a EDV of 13 cm/s. The right distal internal carotid artery has a PSV of 91 cm/s and a EDV of 16 cm/s. The right eca has a PSV of 145 cm/s. The right vertebral artery has a PSV of 60 cm/s and a EDV of 13 cm/s. Left: The left proximal common carotid artery has a PSV of 100 cm/s and a EDV of 13 cm/s. The left mid common carotid artery has a PSV of 91 cm/s and a EDV of 10 cm/s. The left distal common carotid artery has a PSV of 102 cm/s and a EDV of 9 cm/s. The left bifurcation has a PSV of 83 cm/s and a EDV of 9 cm/s. There is smooth homogeneous plaque. The left proximal internal carotid artery has a PSV of 83 cm/s and a EDV of 9 cm/s. The left mid internal carotid artery has a PSV of 108 cm/s and a EDV of 20 cm/s. The left distal internal carotid artery has a PSV of 106 cm/s and a EDV of 20 cm/s. The left eca has a PSV of 163 cm/s. The left vertebral artery has a PSV of 33 cm/s and a EDV of 7 cm/s. Carotid Results Right PSV EDV Assessment Proximal CCA 95 7 Mid CCA 75 9 Distal CCA 89 10 Bifurcation 89 8 Non Stenotic Plaque Proximal ICA 76 9 Mid ICA 87 13 Distal ICA 91 16 ECA 145 0 Vertebral Artery 60 13 Left PSV EDV Assessment Proximal CCA 100 13 Mid CCA 91 10 Distal CCA 102 9 Bifurcation 83 9 Non Stenotic Plaque Proximal ICA 83 9 Mid ICA 108 20 Distal ICA 106 20 ECA 163 0 Vertebral Artery 33 7 Ratio's Right ICA/CCA Ratio: 1.21 Left ICA/CCA Ratio: 1.19 Updated by Saul Dalton MD on 06/22/2017 1:44:44 PM electronically signed on 06/22/2017 1:45:04 PM with status of Final
--- NOTE | 2017-06-22 14:43 | Internal Med Progress Note ---
Date of Encounter: 06/22/17 Time of Encounter: 09:25 - Assessment and plan (1) Left hip pain Current Visit: Yes Status: Acute Assessment and plan: Acute on chronic left hip pain due to fall. MRI of the hip does not show any acute fracture. Continue supportive care and pain control. Physical therapy. X-rays of the left knee and elbow also done and did not show any acute fractures. Patient does have severe osteopenia. (2) Fall Current Visit: Yes Status: Acute Assessment and plan: With recurrent falls. Check orthostatics. Monitor vital signs closely. Physical therapy. Qualifiers: Encounter type: initial encounter Qualified Code(s): W19.XXXA - Unspecified fall, initial encounter (3) AVN (avascular necrosis of bone) Current Visit: Yes Status: Acute Assessment and plan: With acute left hip pain. Orthopedics consulted. We will follow recommendations. (4) Atrial fibrillation Current Visit: No Status: Chronic Assessment and plan: Rate controlled. Was on current anticoagulation with Coumadin. INR 1.6. Anticoagulation currently held due to recurrent falls. Qualifiers: Atrial fibrillation type: paroxysmal Qualified Code(s): I48.0 - Paroxysmal atrial fibrillation (5) COPD (chronic obstructive pulmonary disease) Current Visit: Yes Status: Chronic Assessment and plan: not in acute exacerbation. Continue bronchodilators as needed Qualifiers: COPD type: unspecified COPD Qualified Code(s): J44.9 - Chronic obstructive pulmonary disease, unspecified (6) Coronary artery disease Current Visit: Yes Status: Chronic Assessment and plan: No chest pain. Continue home medications. Qualifiers: Coronary Disease-Associated Artery/Lesion type: [place] artery [place] vs. transplanted heart: [place] heart Associated angina: without angina Qualified Code(s): I25.10 - Atherosclerotic heart disease of [place] coronary artery without angina pectoris (7) DVT prophylaxis Current Visit: No Status: Acute Assessment and plan: Was on Coumadin. Currently held due to recurrent falls. Started on heparin subcutaneous for DVT prophylaxis - Subjective Interval history: Patient is awake and alert. Complains of pain in left hip. Fairly controlled. Denies any lower extremity weakness and numbness. Also has additional injuries on his left forearm is currently bandaged. - Constitutional Vitals: Temp Pulse Resp BP Pulse Ox 97.3 F L 88 16 96/54 93 06/22/17 11:21 06/22/17 11:21 06/22/17 11:21 06/22/17 11:21 06/22/17 11:21 General appearance: Present: cooperative, A&O X 3, pleasant, answers questions appropriately - Neck Neck exam general surgery: Present: supple, trachea midline. Absent: lymphadenopathy - Respiratory Respiratory exam: Present: CTAB. Absent: accessory muscle use, rales, rhonchi, wheezes - Cardiovascular Cardiovascular exam: Present: RRR, +S1, +S2. Absent: diastolic murmur, gallop, rubs, systolic murmur - GI/Abdominal GI/Abdominal exam: Present: normal bowel sounds, soft, no peritoneal signs. Absent: distended, tenderness - Extremities Exam Extremities exam: Present: tenderness (Left hip), warm, radial pulses palpable and symmetrical. Absent: calf tenderness, cyanotic, pedal edema Additional comments: Left forearm currently bandaged. Internal Medicine: Result - Labs CBC & Chem 7: 06/22/17 06:10 06/22/17 06:10 Labs: Short CBC 06/22/17 Range/Units 06:10 WBC 8.4 (4.3-11.1) K/mcL Hgb 11.0 L (12.9-16.9) g/dL Hct 34.8 L (37.5-50.1) % Plt Count 236 (140-400) K/mcL Neutrophils # 5.6 (1.6-8.9) K/mcL BMP 06/22/17 06:10 Sodium 139 Potassium 4.5 Chloride 104 Carbon Dioxide 28 BUN 36 H Creatinine 1.13 Glucose 88 Calcium 9.3 Liver Function 06/22/17 Range/Units 06:10 Total Bilirubin 0.5 (0.2-1.2) mg/dL AST 16 (5-34) Units/L ALT 9 (0-55) Units/L Alkaline Phosphatase 85 (38-126) Units/L Albumin 2.7 L (3.5-5.0) g/dL - ABG Interpretation ABG results: PT/INR, D-dimer PT 17.5 Seconds (9.4-12.1) H 06/22/17 06:10 - Impressions Impressions Hip MRI 06/22/17 02:41 IMPRESSION: 1. No evidence of occult fracture in the pelvis or either hip. 2. Severe left hip osteoarthritis. 3. No evidence of acute soft tissue injury. D/ / 06/22/2017 11:53:14 Stanton Bran MD / annette Interpreting Provider: Stanton Bran MD Elbow X-Ray 06/22/17 07:54 IMPRESSION: No acute osseous abnormality. D/ / 06/22/2017 08:28:55 Lamin Medina MD / jose rafael Interpreting Provider: Lamin Medina MD Knee X-Ray 06/22/17 07:54 IMPRESSION: 1. No acute fracture identified. Sensitivity for nondisplaced fractures limited due to severe osteopenia. 2. Small joint effusion. D/ / 06/22/2017 08:28:32 Lamin Medina MD / jose rafael Interpreting Provider: Lamin Medina MD Consult Discharge Plan - Plan Referrals: NONE,PCP [Primary Care Provider] -
[2017-06-22] MEDS: *HR* HYDROcodone/Acet 5/325 mg TABLET PO PRN (17:42)
--- NOTE | 2017-06-22 19:09 | Electrocardiograph Report ---
[place] [id number] Test Date: 2017-06-21 Pat Name: Timbo Kumar Department: 114 Room: [facility] Gender: M Financial Coordinator: LUCITA : 1940 Requested By: Anson Win Order Number: [id number] Reading MD: Rah Simmons MD Measurements Intervals [place] Rate: 74 P: [place]: 0 QRS: 41 QRSD: 148 T: 206 QT: 400 QTc: 427 Interpretive Statements ATRIAL FIBRILLATION LEFT BUNDLE BRANCH BLOCK BASELINE ARTIFACT Electronically Signed On 06-22-2017 19:07:58 EDT by Rah Simmons MD
[2017-06-22] MEDS ORDERED: 0.9 % Sodium Chloride 250 ML IVC ONE (19:24)
[2017-06-23] MEDS: *HR* Heparin 5,000 UNIT/ML VIAL SQ SCH (06:42)
[2017-06-23] MEDS: *HR* HYDROcodone/Acet 5/325 mg TABLET PO PRN ×2 (06:50→13:15)
--- NOTE | 2017-06-23 07:47 | Orthopedics Progress Note ---
Date of Encounter: 06/23/17 Time of Encounter: 07:45 - Assessment and Plan (1) Left hip pain Current Visit: Yes Status: Acute The patient has acute on chronic left hip pain after fall. He has significant avascular necrosis which was known prior to the injury. My suspicion for occult hip fracture is low, however this is a possibility and therefore we will obtain an MRI of the left hip to evaluate for this. I will also order a left elbow and left knee x-ray given injuries identified by myself this morning to the skin. I will follow up later today after the studies are performed to provide further recommendations. We will keep the patient nothing by mouth for now. Subjective Interval history: S: Resting in bed comfortably. No new complaints O: Afebrile and his vital signs are stable Moderate pain with motion of the left hip and with axial loading of the thigh Neurovascularly intact distally MRI of the left hip does not show an occult hip fracture. Significant changes related to avascular necrosis A: Avascular necrosis of the left hip. No fractures P: Physical therapy for mobilization Orthopedically stable for discharge Outpatient management of his avascular necrosis Follow-up with [facility] in the office Objective Vital signs: Vital Signs Temp Pulse Pulse Pulse Resp BP BP 06/23/17 02:41 98.1 F 70 16 116/73 06/22/17 22:26 97.9 F 71 18 93/54 06/22/17 20:42 16 06/22/17 18:16 98.0 F 78 14 89/54 06/22/17 17:22 98.5 F 73 16 90/53 06/22/17 11:21 97.3 F L 88 16 96/54 06/22/17 09:57 76 86 120/66 06/22/17 08:55 06/22/17 08:16 18 BP Pulse Ox 06/23/17 02:41 97 06/22/17 22:26 95 06/22/17 20:42 92 06/22/17 18:16 93 06/22/17 17:22 95 06/22/17 11:21 93 06/22/17 09:57 116/69 06/22/17 08:55 92 06/22/17 08:16 92 Intake and Output 06/22/17 06/22/17 06/23/17 15:59 23:59 07:59 Intake Total 480 / 480 Output Total 0 / 0 0 / 0 Balance 480 / 480 0 / 0 0 / 0 Intake: Oral 480 / 480 Output: Urine 0 / 0 0 / 0 Other: Meal Breakfast Percent of Meal Consumed 100% # Voids 3 Weight 98.9 kg Blood Glucose* 101 104 Patient Weight 06/23/17 23:59 Weight 98.9 kg - Labs CBC & BMP: 06/22/17 06:10 06/22/17 06:10 Labs: Abnormal lab results RBC 3.93 M/mcL (4.19-5.50) L 06/22/17 06:10 Hgb 11.0 g/dL (12.9-16.9) L 06/22/17 06:10 Hct 34.8 % (37.5-50.1) L 06/22/17 06:10 RDW 17.0 % (11.5-14.5) H 06/22/17 06:10 PT 17.5 Seconds (9.4-12.1) H 06/22/17 06:10 BUN 36 mg/dL (8-26) H 06/22/17 06:10 BUN/Creatinine Ratio 32 (6-26) H 06/22/17 06:10 POC Glucose 104 (58-89) H 06/22/17 21:40 Albumin 2.7 g/dL (3.5-5.0) L 06/22/17 06:10 Globulin 3.9 g/dL (2.4-3.5) H 06/22/17 06:10 Albumin/Globulin Ratio 0.7 (1.1-2.2) L 06/22/17 06:10 Consult Discharge Plan - Plan Referrals: NONE,PCP [Primary Care Provider] -
[2017-06-23] MEDS: Budesonide/Formoterol 160/4.5 MDI IH SCH (07:54)
[2017-06-23] MEDS: Tiotropium 18 MCG inhalation IH SCH (07:55)
[2017-06-23] MEDS ORDERED: Aspirin Enteric Coated 81 MG Tablet PO SCH (09:00)
[2017-06-23] MEDS ORDERED: SACUBITRIL/VALSARTAN 24/26 MG TABLET PO SCH (09:00)
[2017-06-23] MEDS: Spironolactone 25 MG TABLET PO SCH (10:34)
[2017-06-23] MEDS: *HR* Digoxin 0.125 MG TABLET PO SCH (10:34)
[2017-06-23] MEDS: metOLazone 2.5 MG TABLET PO SCH (10:34)
[2017-06-23] MEDS: Furosemide 40 MG TABLET PO SCH (10:34)
[2017-06-23] MEDS: Loratadine 10 MG TABLET PO SCH (10:34)
[2017-06-23] MEDS: Fluticasone Propionate Nasal 50 MCG/SPRAY BOTTLE NS SCH (11:16)
[2017-06-23 11:21] VITALS: BP 91/56
--- NOTE | 2017-06-23 13:31 | Discharge Summary ---
Date of Encounter: 06/23/17 Time of Encounter: 09:30 - Discharge Diagnosis (1) Left hip pain Priority: Primary Status: Acute (2) Fall Priority: Secondary Status: Acute Qualifiers: Encounter type: initial encounter Qualified Code(s): W19.XXXA - Unspecified fall, initial encounter (3) AVN (avascular necrosis of bone) Priority: Secondary Status: Chronic (4) Atrial fibrillation Priority: Secondary Status: Chronic Qualifiers: Atrial fibrillation type: paroxysmal Qualified Code(s): I48.0 - Paroxysmal atrial fibrillation (5) COPD (chronic obstructive pulmonary disease) Priority: Secondary Status: Chronic Qualifiers: COPD type: unspecified COPD Qualified Code(s): J44.9 - Chronic obstructive pulmonary disease, unspecified (6) Coronary artery disease Priority: Secondary Status: Chronic Qualifiers: Coronary Disease-Associated Artery/Lesion type: [place] artery [place] vs. transplanted heart: [place] heart Associated angina: without angina Qualified Code(s): I25.10 - Atherosclerotic heart disease of [place] coronary artery without angina pectoris (7) DVT prophylaxis Priority: Secondary Status: Acute - Discharge Medications Prescriptions: HYDROcodone/Acet 5/325 mg [Flint 5-325 mg] 1 tab PO Q6HR PRN #14 tablet PRN Reason: PAIN 4-6 Aspirin Enteric Coated [Aspirin EC] 81 mg PO DAILY #30 tablet.dr Home Medications: Albuterol Sulfate [Albuterol Inhaler] 1 puff IH Q6H PRN 01/31/17 [History] Allopurinol [Zyloprim] 300 mg PO QAM 01/31/17 [History] Budesonide/Formoterol 160/4.5 [Symbicort 160/4.5] 2 puff IH BID 01/31/17 [ History] Digoxin [Lanoxin] 0.125 mg PO QAM 01/31/17 [History] Docusate [Colace] 100 mg PO QAM 01/31/17 [History] Ergocalciferol (VITAMIN D2) [Vitamin D2] 50,000 unit PO TH 01/31/17 [History] Fluticasone Propionate Nasal [Flonase] 2 spr NS QAM 01/31/17 [History] Furosemide [Lasix] 80 mg PO QAM 01/31/17 [History] Ipratropium/Albuterol Neb [Duoneb] 3 ml IH Q6H 01/31/17 [History] Loratadine [Allergy Relief] 10 mg PO QAM 01/31/17 [History] Nitroglycerin [Nitrostat] 0.4 mg SL Q5M PRN 01/31/17 [History] Potassium Chloride [Klor-Con 10] 10 meq PO QAM 01/31/17 [History] Simvastatin [Zocor] 20 mg PO HS 01/31/17 [History] Spironolactone [Aldactone] 25 mg PO QAM 01/31/17 [History] Tiotropium [Spiriva] 18 mcg IH QAM 01/31/17 [History] metOLazone [Zaroxolyn] 2.5 mg PO QAM 01/31/17 [History] Acetaminophen [Tylenol] 1,000 mg PO Q4H PRN 06/21/17 [History] Polyethylene Glycol 3350 [MiraLAX] 17 gm PO DAILY PRN 06/21/17 [History] Sertraline [Zoloft] 50 mg PO QAM 06/21/17 [History] Aspirin Enteric Coated [Aspirin EC] 81 mg PO DAILY #30 tablet. 06/23/17 [Rx] HYDROcodone/Acet 5/325 mg [[place] 5-325 mg] 1 tab PO Q6HR PRN #14 tablet [Rx] Sacubitril/Valsartan 24/26 mg [Entresto 24 mg-26 mg Tablet] 1 tab PO DAILY tablet 06/23/17 [Rx] Allergies/Adverse Reactions: 3 Allergy/AdvReac Type Severity Reaction Status Date / Time Oxycodone [From OxyContin] Allergy Hives Verified 01/31/17 09:22 tramadol Allergy Hives Verified 01/31/17 09:22 fentyl patch Allergy Hives Uncoded 01/31/17 09:22 Procedures/tests Complete & Pending: Procedures Performed prior 72 hours Category Date Time Status MR hip LT wo con [MR] Stat MRI 06/22/17 02:41 Draft EV carotid duplex imaging BI Routine Y 06/22/17 07:00 Completed Date of admission: 06/21/17 21:29 Primary care physician: PCP NONE Consults: 06/22/17 13:01 Consult to Physical Therapy [CONS] Routine Comment: Evaluate, develop and implement POC Reason for Consult: left hip pain and falls 06/22/17 13:02 Consult to Occupational Therapy [CONS] Routine Comment: Evaluate, develop and implement POC Reason for Consult: left hip pain and falls 06/22/17 17:26 Consult to Wound Care [CONS] Routine Reason for Consult: left knee laceration, multiple skin tears non healing Call Completed: Yes Discharging clinician: Duy Arenas Anticipated date of discharge: 06/23/17 - Patient Status Disposition: Transfer SNF Condition: Good Functional capacity at discharge: uses cane/walker Overall status at discharge: patient is progressing back to baseline - Discharge Instructions Instructions: Fall Prevention (DC), Atrial Fibrillation (DC) Follow Up With: NONE,PCP [Primary Care Provider] - - Diet and Activity Activity: as per physical therapy Diet: low fat, low cholesterol, low salt diet Hospital course: Mr. Kumar is a 76 year old male patient with a history of atrial fibrillation , COPD, hypertension, coronary artery disease who was hospitalized here after presenting to the ER from the group home with left hip pain after fall. Patient has chronic left hip hip pain. CT scan of the hip CT scan of the pelvis showed severe left hip degenerative arthritis and osteoarthritis with avascular necrosis of the left femoral head. This was a chronic finding. Orthopedics was consulted. They evaluated the patient and recommended MRI to look for any occult fracture. MRI of the left hip did not show any occult fracture. Patient also had injuries to his left elbow and knee. These were also x-rayed and he was not found to have any fracture. He does have severe osteopenia and arthritis. Patient has been having recurrent falls at the group home and according to his family members these usually occur when he tries to slide out of the bed. According to my discussion with his daughter, he is also been exhibiting some signs of subtle dementia. CT scan of the head was done here which showed cerebral atrophy and chronic small vessel ischemic white matter disease. Bilateral carotid Dopplers were also done and patient was found to have minimal plaque throughout. Patient is on Coumadin for anticoagulation due to prior TIA and atrial fibrillation history. He has however been in sinus rhythm here. Given his recurrent falls, he is at high risk for intracranial bleeding with continued falls. I discussed this with his daughter and recommended that we hold Coumadin until his strength improves and we are able to keep him from falling so often. She expresses understanding and agreed to this plan. So we will hold Coumadin for now as patient continues to receive physical therapy at skilled rehabilitation. Coumadin may be resumed at a later date when patient is more stable. Patient also has been having low blood pressure during most of the day here. His orthostatic blood pressure was negative. However patient is on multiple diuretic agents and also takes Entresto twice daily. At this time I recommend decreasing dosage of Entresto to once daily was monitoring his blood pressure closely. He may require further decreasing his diuretic medications to allow for increase in his blood pressure. Intermittent low blood pressure could also be causing his recurrent falls. He can follow up for further management with his primary care provider and active directory engineer. At this time, patient is clinically stable for discharge. He will be discharged back to skilled rehabilitation for continued therapy. - Time Spent with Patient Total time spent providing and/or coordinating discharge services: Greater than 30 minutes (40 min) - Constitutional Vitals: Temp Pulse Resp BP Pulse Ox 97.4 F L 79 16 91/56 94 06/23/17 11:05 06/23/17 11:05 06/23/17 11:05 06/23/17 11:05 06/23/17 11:05 General appearance: Present: cooperative, A&O X 3, pleasant, answers questions appropriately - Neck Neck exam general surgery: Present: supple, trachea midline. Absent: lymphadenopathy - Respiratory Respiratory exam: Present: CTAB. Absent: accessory muscle use, rales, rhonchi, wheezes - Cardiovascular Cardiovascular exam: Present: RRR, +S1, +S2. Absent: diastolic murmur, gallop, rubs, systolic murmur - GI/Abdominal GI/Abdominal exam: Present: normal bowel sounds, soft, no peritoneal signs. Absent: distended, tenderness - Extremities Exam Extremities exam: Present: tenderness (Left hip), warm, radial pulses palpable and symmetrical. Absent: calf tenderness, cyanotic, pedal edema - Neurological Exam Neurological exam: Present: alert, oriented X3, no focal deficits. Absent: facial droop, speech deficit
--- NOTE | 2017-06-23 13:40 | Physician Discharge Referral ---
ExtendedCare Referral Info Provider in Charge after Transfer: PCP Institutional Level of Care: Skilled - Diagnosis (1) Left hip pain Priority: Primary Status: Acute (2) Fall Priority: Secondary Status: Acute (3) AVN (avascular necrosis of bone) Priority: Secondary Status: Chronic (4) Atrial fibrillation Priority: Secondary Status: Chronic (5) COPD (chronic obstructive pulmonary disease) Priority: Secondary Status: Chronic (6) Coronary artery disease Priority: Secondary Status: Chronic (7) DVT prophylaxis Priority: Secondary Status: Acute Prognosis: Fair Aware of Diagnosis: Patient, Family Aware of Prognosis: Patient, Family - Transfer Medications Prescriptions: HYDROcodone/Acet 5/325 mg [Gol[place] 5-325 mg] 1 tab PO Q6HR PRN #14 tablet PRN Reason: PAIN 4-6 Aspirin Enteric Coated [Aspirin EC] 81 mg PO DAILY #30 tablet.dr Home Medications: Albuterol Sulfate [Albuterol Inhaler] 1 puff IH Q6H PRN 01/31/17 [History] Allopurinol [Zyloprim] 300 mg PO [facility] 01/31/17 [History] Budesonide/Formoterol 160/4.5 [Symbicort 160/4.5] 2 puff IH BID 01/31/17 [ History] Digoxin [Lanoxin] 0.125 mg PO [facility] 01/31/17 [History] Docusate [Colace] 100 mg PO [facility] 01/31/17 [History] Ergocalciferol (VITAMIN D2) [Vitamin D2] 50,000 unit PO TH 01/31/17 [History] Fluticasone Propionate Nasal [Flonase] 2 spr NS [facility] 01/31/17 [History] Furosemide [Lasix] 80 mg PO [facility] 01/31/17 [History] Ipratropium/Albuterol Neb [Duoneb] 3 ml IH Q6H 01/31/17 [History] Loratadine [Allergy Relief] 10 mg PO [facility] 01/31/17 [History] Nitroglycerin [Nitrostat] 0.4 mg SL Q5M PRN 01/31/17 [History] Potassium Chloride [Klor-Con 10] 10 meq PO QAM 01/31/17 [History] Simvastatin [Zocor] 20 mg PO HS 01/31/17 [History] Spironolactone [Aldactone] 25 mg PO QAM 01/31/17 [History] Tiotropium [Spiriva] 18 mcg IH QAM 01/31/17 [History] metOLazone [Zaroxolyn] 2.5 mg PO QAM 01/31/17 [History] Acetaminophen [Tylenol] 1,000 mg PO Q4H PRN 06/21/17 [History] Polyethylene Glycol 3350 [MiraLAX] 17 gm PO DAILY PRN 06/21/17 [History] Sertraline [Zoloft] 50 mg PO QAM 06/21/17 [History] Aspirin Enteric Coated [Aspirin EC] 81 mg PO DAILY #30 tablet.dr 06/23/17 [Rx] HYDROcodone/Acet 5/325 mg [Golva 5-325 mg] 1 tab PO Q6HR PRN #14 tablet [Rx] Sacubitril/Valsartan 24/26 mg [Entresto 24 mg-26 mg Tablet] 1 tab PO DAILY tablet 06/23/17 [Rx] Allergies/Adverse Reactions: 3 Allergy/AdvReac Type Severity Reaction Status Date / Time Oxycodone [From OxyContin] Allergy Hives Verified 01/31/17 09:22 tramadol Allergy Hives Verified 01/31/17 09:22 fentyl patch Allergy Hives Uncoded 01/31/17 09:22 - Respiratory Orders Oxygen / L per min (keep sats >90%) Smoking Cessation: Smoking cessation has been advised. For more information, call the [place] Tobacco Quit Line at 5-395-POGL-NOW. - Ancillary Orders May consult with Dentist, Flexographic Press Plate Setter, Mechanical Designer PRN - Advance Directives Code Status: Full Code - Mobility Orders Other (per PT) - Rehabiliation Orders Rehab Potential: Fair Rehab Orders: Evaluation for Physical Therapy, Evaluation for Occupational Therapy - Treatments List/Other: Please hold antihypertensive medications for systolic blood pressure less than 100. Please hold diuretics in (Lasix, spironolactone, metolazone) for systolic blood pressure less than 90 - Diet Orders Cardiac CERTIFICATION: I certify that the transfer of the above named patient to an Extended Care Facility is necessary for the continuing treatment of the diagnosis listed. The above information is true and accurate reflection of patient's current condition. Confidential - Redisclosure prohibited without a patient's written consent.
== END 2017-06-23 16:00 | DRG 556 ==
LOC: EMEROO 16:48 → 3NENU 16:48 → SUATTDRO 21:29
PROVIDERS: ADMIT Nurse Practitioner Family; ATTEND Internal Medicine

== ENCOUNTER 2017-10-14 13:53 | Observation (INO) ==
[2017-10-14] MEDS ORDERED: methylPREDNISolone 125 MG/2 ML VIAL IVP ONE (13:59)
[2017-10-14] MEDS ORDERED: Ipratropium/Albuterol Neb 3 ML IH ONE (13:59)
--- NOTE | 2017-10-14 14:31 | Emergency Department Note ---
Disposition Clinical Impression: Acute and chronic respiratory failure Qualifiers: Respiratory failure complication: unspecified whether with hypoxia or hypercapnia Qualified Code(s): J96.20 - Acute and chronic respiratory failure, unspecified whether with hypoxia or hypercapnia Pulmonary edema Qualifiers: Chronicity: acute Qualified Code(s): J81.0 - Acute pulmonary edema Acute exacerbation of congestive heart failure Qualifiers: Congestive heart failure type: unspecified Qualified Code(s): I50.9 - Heart failure, unspecified Disposition: Admitted As Inpatient Condition: Fair Time of Disposition: 17:55 SOB HPI - General Chief Complaint: ED Shortness of Breath/Dyspnea Stated Complaint: sob Time Seen by Provider: 10/14/17 13:53 Source: patient, EMS Limitations: no limitations Nursing Notes Reviewed: Yes Vital Signs Reviewed: Yes - History of Present Illness Mr. Kumar, 76-year-old male, presents from assisted via EMS for evaluation of dyspnea. Onset just prior to arrival. Per EMS, assisted increased his baseline oxygen use from 1 L to 2 L no improvement in his pulse ox. Unknown pulse ox reading at assisted facility. In route, EMS provided a single albuterol nebulizer and pulse ox jumped to 98-99%. - Related Data Home Medications Medication Instructions Recorded Confirmed Albuterol Sulfate [Albuterol 1 puff IH Q6H PRN 01/31/17 06/21/17 Inhaler] Allopurinol [Zyloprim] 300 mg PO QAM 01/31/17 06/21/17 Budesonide/Formoterol 160/4.5 2 puff IH BID 01/31/17 06/21/17 [Symbicort 160/4.5] Digoxin [Lanoxin] 0.125 mg PO QAM 01/31/17 06/21/17 Docusate [Colace] 100 mg PO QAM 01/31/17 06/21/17 Ergocalciferol (VITAMIN D2) 50,000 unit PO TH 01/31/17 06/21/17 [Vitamin D2] Fluticasone Propionate Nasal 2 spr NS QAM 01/31/17 06/21/17 [Flonase] Ipratropium/Albuterol Neb [Duoneb] 3 ml IH Q6H 01/31/17 06/21/17 Nitroglycerin [Nitrostat] 0.4 mg SL Q5M PRN 01/31/17 06/21/17 Potassium Chloride [Klor-Con 10] 10 meq PO QAM 01/31/17 06/21/17 Simvastatin [Zocor] 20 mg PO HS 01/31/17 06/21/17 Tiotropium [Spiriva] 18 mcg IH QAM 01/31/17 06/21/17 Acetaminophen [Tylenol] 1,000 mg PO Q4H PRN 06/21/17 06/21/17 Polyethylene Glycol 3350 [MiraLAX] 17 gm PO DAILY PRN 06/21/17 06/21/17 Aspirin 81 mg PO QAM 10/14/17 10/14/17 Bisacodyl [Dulcolax] 10 mg PO BID PRN 10/14/17 10/14/17 Carvedilol 3.125 mg PO QAM 10/14/17 10/14/17 Furosemide [Lasix] 20 mg PO QAM 10/14/17 10/14/17 HYDROcodone/Acet 5/325 mg [[place] 1 tab PO Q6HR PRN 10/14/17 10/14/17 5-325 mg] Magnesium Hydroxide [Milk of 2,400 mg PO DAILY PRN 10/14/17 10/14/17 Magnesia] Oseltamivir [Tamiflu] 75 mg PO DAILY 10/14/17 10/14/17 Oxygen 2 l NS AD 10/14/17 10/14/17 Allergies Allergy/AdvReac Type Severity Reaction Status Date / Time Oxycodone [From OxyContin] Allergy Hives Verified 01/31/17 09:22 tramadol Allergy Hives Verified 01/31/17 09:22 fentyl patch Allergy Hives Uncoded 01/31/17 09:22 Limitations: ROS unobtainable due to patients medical condition Past Medical History - Past Medical History Medical history: Reports: atrial fibrillation, COPD, coronary artery disease, diabetes, hypertension, other Surgical history: Reports: coronary bypass (CABG) Psychiatric history: Reports: no psych history - Social History Smoking Status: Former smoker Smokeless Tobacco Status: No Alcohol use: Reports: rarely Drug use: Reports: none Physical Exam Vital Signs Reviewed General: Patient is alert, oriented, and in no acute distress. HEENT: No facial asymmetry. Head is normocephalic and atraumatic. PERRLA, EOMI. oral mucosa tacky. Trachea midline. Cardiovascular: Heart regular rate and rhythm without clicks, rubs, gallops. Grade 3/4 systolic murmur. No JVD. PMI nondisplaced. No pedal edema. Respiratory: Symmetric chest rise with good respiratory effort. Bilateral breath sounds are diffusely diminished with no wheezes, crackles, or rhonchi. Abdomen: Bowel sounds present normoactive x-4 quadrants. Abdomen is soft, nondistended, and nontender. No organomegaly noted. Musculoskeletal: Muscle strength 5/5 and symmetric bilaterally in upper and lower extremities. DTRs 2/4 and symmetric bilaterally in upper and lower extremities. Neuro: Alert & oriented x4 Sensation light touch intact. Psych: Patient's affect is appropriate for situation. - General Limitations: no limitations General appearance: alert, in no apparent distress Course Course Narrative: Patient presents from assisted for reported dyspnea. He does not appear to have any respiratory distress and is saturating well on 2 L nasal cannula. Lung sounds are clear. No pedal edema. Chest x-ray concerning for increasing right pleural effusion. Patient is anemic with hemoglobin of 11. This is consistent with his chronic baseline. No renal dysfunction. Unremarkable electrolytes. BNP of 459 is consistent with patient's clinical picture of dyspnea and pleural effusions on chest x- ray. Will provide 40 mg Lasix and begin the admission process for continued inpatient diuresis. Patient reassessed when taken back down from 4 L to his baseline 2 L nasal cannula. He desaturated to 85%. He is in agreement to admission for continued evaluation and diuresis. I discussed the patient with the admitting hospitalist agrees to accept the patient for continued evaluation and management. Chest X-Ray 10/14/17 13:59 IMPRESSION: Bilateral pleural effusions, greater on the right and increased since the previous exam. D/ / Leila Akbar MD / Leila Akbar MD Interpreting Provider: Leila Akbar MD Vital Signs Temperature 97.6 F 10/14/17 13:55 Pulse Rate 81 10/14/17 13:55 Respiratory Rate 18 10/14/17 13:55 Blood Pressure 142/77 10/14/17 13:55 O2 Sat by Pulse Oximetry 92 10/14/17 13:55 Temperature 97.6 F 10/14/17 13:55 Pulse Rate 81 10/14/17 13:55 Respiratory Rate 18 10/14/17 14:11 Blood Pressure 142/77 10/14/17 13:55 O2 Sat by Pulse Oximetry 96 10/14/17 14:29 Oxygen Delivery Oxygen Delivery Nasal Cannula Shortness of Breath/Dyspnea - Medical Records Medical records reviewed: Yes I reviewed the patient's medical records. - Lab Data Lab results reviewed: Yes I reviewed the patient's lab results. Result diagrams: 10/14/17 14:26 10/14/17 14:26 Lab Results 10/14/17 10/14/17 10/14/17 Range/Units 14:26 14:26 14:26 WBC 7.9 (4.3-11.1) K/mcL RBC 4.00 L (4.19-5.50) M/mcL Hgb 11.1 L (12.9-16.9) g/dL Hct 37.0 L (37.5-50.1) % MCV 92.5 (83.0-100.0) fL MCH 27.8 L (28.0-33.3) pg MCHC 30.0 L (31.6-35.5) g/dL RDW 15.9 H (11.5-14.5) % Plt Count 275 (140-400) K/mcL MPV 10.4 (9.4-12.4) fL Immature Gran % 0.3 (0-4) % Seg Neutrophils % 75.6 % Lymphocytes % 14.0 % Monocytes % 6.4 % Eosinophils % 3.3 % Basophils % 0.4 % Neutrophils # 6.0 (1.6-8.9) K/mcL Lymphocytes # 1.1 (0.6-4.6) K/mcL Monocytes # 0.5 (0.0-1.3) K/mcL Eosinophils # 0.3 (0.0-0.6) K/mcL Basophils # 0.0 (0.0-0.2) K/mcL PT (9.4-12.1) Seconds INR Sodium 138 (136-145) mEq/L Potassium 4.3 (3.5-5.1) mEq/L Chloride 104 (98-107) mEq/L Carbon Dioxide 32 H (23-29) mEq/L BUN 19 (8-23) mg/dL Creatinine 0.90 (0.70-1.30) mg/dL Est GFR ( Amer) > 60 (> 60) Est GFR (Non-Af Amer) > 60 (> 60) BUN/Creatinine Ratio 21 (6-26) Glucose 140 H (70-105) mg/dL Calculated Osmolality 291 (280-300) Lactic Acid 1.2 (0.5-2.2) mmol/L Calcium 9.2 (8.6-10.3) mg/dL Troponin I (< 0.04) ng/mL B-Natriuretic Peptide (Less than 100) pg/mL 10/14/17 10/14/17 10/14/17 Range/Units 14:26 14:26 14:26 WBC (4.3-11.1) K/mcL RBC (4.19-5.50) M/mcL Hgb (12.9-16.9) g/dL Hct (37.5-50.1) % MCV (83.0-100.0) fL MCH (28.0-33.3) pg MCHC (31.6-35.5) g/dL RDW (11.5-14.5) % Plt Count (140-400) K/mcL MPV (9.4-12.4) fL Immature Gran % (0-4) % Seg Neutrophils % % Lymphocytes % % Monocytes % % Eosinophils % % Basophils % % Neutrophils # (1.6-8.9) K/mcL Lymphocytes # (0.6-4.6) K/mcL Monocytes # (0.0-1.3) K/mcL Eosinophils # (0.0-0.6) K/mcL Basophils # (0.0-0.2) K/mcL PT 13.2 H (9.4-12.1) Seconds INR 1.2 Sodium (136-145) mEq/L Potassium (3.5-5.1) mEq/L Chloride (98-107) mEq/L Carbon Dioxide (23-29) mEq/L BUN (8-23) mg/dL Creatinine (0.70-1.30) mg/dL Est GFR ( Amer) (> 60) Est GFR (Non-Af Amer) (> 60) BUN/Creatinine Ratio (6-26) Glucose (70-105) mg/dL Calculated Osmolality (280-300) Lactic Acid (0.5-2.2) mmol/L Calcium (8.6-10.3) mg/dL Troponin I 0.03 (< 0.04) ng/mL B-Natriuretic Peptide 459 H (Less than 100) pg/mL - Radiology Data Radiology results reviewed: Yes I reviewed the patient's radiology results. - EKG Data EKG attestation: Yes I reviewed and interpreted this EKG. EKG results narrative: EKG dated 2015 at 14:05 interpreted as atrial fibrillation with a rate of 84. PVC. Left bundle branch block that is appropriately discordant. Left axis. Compared to previous EKG dated 06/21/2017 also showing appropriate discordant left bundle branch block; no acute ischemic changes comparison.
[2017-10-14 14:34] LABS: Basophils % 0.4 %; Eosinophils # 0.3 K/mcL (0.0-0.6); Eosinophils % 3.3 %; Hemoglobin 11.1 g/dL (12.9-16.9); Immature Granulocytes % 0.3 % (0-4); Lymphocytes # 1.1 K/mcL (0.6-4.6); Mean Corpuscular Hemoglobin 27.8 pg (28.0-33.3); Mean Corpuscular Volume 92.5 fL (83.0-100.0); Mean Platelet Volume 10.4 fL (9.4-12.4); Monocytes # 0.5 K/mcL (0.0-1.3); Monocytes % 6.4 %; Platelet Count 275 K/mcL (140-400); Red Cell Distribution Width 15.9 % (11.5-14.5); Segmented Neutrophils % 75.6 %
[2017-10-14 14:50] LABS: BUN/Creatinine Ratio 21 (6-26); Blood Urea Nitrogen 19 mg/dL (8-23); Calcium 9.2 mg/dL (8.6-10.3); Carbon Dioxide 32 mEq/L (23-29); Chloride 104 mEq/L (98-107); Glucose 140 mg/dL (70-105); Osmolality,Calculated 291 (280-300); Potassium 4.3 mEq/L (3.5-5.1); Sodium 138 mEq/L (136-145); eGFR For African Americans > 60 (> 60); eGFR For Non-African Americans > 60 (> 60)
[2017-10-14] MEDS ORDERED: Furosemide 40 MG/4 ML VIAL IVP ONE (15:27)
--- NOTE | 2017-10-14 15:49 | Emergency Department Note ---
START Narrative - START START: I examined this patient and my medical decision-making was reviewed with the Resident Physician. I agree with the documented findings, disposition and treatment plan as described except to the extent set forth below. 76 citlaly old male presents to the ED with complaints of dyspnea from the [facility]. He wears 2LNC intermittently as needed and it apepars that when he is off his oxygen he drops to 85% on RA and on 2lnc he is 89%, currently i have him on 4LNC and he is 95%. Greta has a history of pulmonary edema and it appearso n CXR that it is worse on the right sided from his previous CXR. Greta also has pedal edema and we will treat with lasix and admit him to medicine.
[2017-10-14] MEDS ORDERED: *HR* HYDROcodone/Acet 5/325 mg TABLET PO PRN (16:53)
[2017-10-14] MEDS ORDERED: Nitroglycerin 0.4 MG TAB.SUBL SL PRN (16:53)
[2017-10-14] MEDS ORDERED: MOM Conc 10 ML UD.LIQ PO PRN (16:53)
[2017-10-14] MEDS ORDERED: Acetaminophen 325 MG TABLET PO PRN (16:56)
[2017-10-14] MEDS ORDERED: Ondansetron 4 MG/2 ML VIAL IVP PRN (16:56)
[2017-10-14] MEDS ORDERED: Naloxone 0.4 MG/ML INJ IVP PRN (16:56)
--- NOTE | 2017-10-14 17:02 | Internal Med History&Physical ---
Date of Encounter: 10/14/17 Time of Encounter: 17:00 Assessment and Plan (1) Acute and chronic respiratory failure Current visit: Yes Status: Acute Acute on chronic hypoxic respiratory failure secondary to acute systolic and diastolic CHF exacerbation with associated bilateral plural effusions on the right than the left Strict I's and O's and daily weight Start Lasix IV 40 mg twice a day, fluid restriction Oxygen therapy Omeprazole for GI prophylaxis, sequential compression devices for DVT prophylaxis. The patient will be admitted for observation. Full code. Time spent on this admission 40 minutes Qualifiers: Respiratory failure complication: hypoxia Qualified Code(s): J96.21 - Acute and chronic respiratory failure with hypoxia (2) GERD (gastroesophageal reflux disease) Current visit: Yes Status: Acute Omeprazole Qualifiers: Esophagitis presence: with esophagitis Qualified Code(s): K21.0 - Gastro- esophageal reflux disease with esophagitis (3) Diabetes Current visit: Yes Status: Acute Insulin sliding scale Qualifiers: Diabetes mellitus type: type 2 Diabetes mellitus complication status: without complication Diabetes mellitus terminal clerk insulin use: without terminal clerk use Qualified Code(s): E11.9 - Type 2 diabetes mellitus without complications (4) Atrial fibrillation Current visit: No Status: Chronic Continue digoxin Check INR and confirm whether the patient is currently on warfarin or not Qualifiers: Atrial fibrillation type: paroxysmal Qualified Code(s): I48.0 - Paroxysmal atrial fibrillation (5) Acute congestive heart failure Current visit: No Status: Acute Qualifiers: Congestive heart failure type: combined Qualified Code(s): I50.41 - Acute combined systolic (congestive) and diastolic (congestive) heart failure (6) Coronary artery disease Current visit: No Status: Chronic Qualifiers: Coronary Disease-Associated Artery/Lesion type: [place] artery [place] vs. transplanted heart: [place] heart Associated angina: without angina Qualified Code(s): I25.10 - Atherosclerotic heart disease of [place] coronary artery without angina pectoris (7) AVN (avascular necrosis of bone) Current visit: No Status: Chronic History of avascular necrosis Internal Medicine - H&P: HPI Chief complaint: Shortness of breath Admitted From: Emergency Dept History of present illness: Mr. Kumar is a 76 year old male with a past medical history of ischemic cardiomyopathy systolic CHF with an ejection fraction of 30% on January of last year , COPD oxygen dependent using 2 L, diabetes type 2 not insulin-dependent, atrial fibrillation, unclear whether the patient is on Coumadin or not. Apparently she has been more short of breath since yesterday desaturating down to 85%. According to records his home dose of Lasix is 20 mg daily. The patient is a very poor historian, does not remember his medications are presently he has been drinking more fluids lately. Chest x-ray shows bilateral pleural effusions more on the right than the left and a BNP of 459. Done in the emergency room he was given Lasix IV and Solu-Medrol. His glucose is 140. He denies any other complaint. Also, according to them medications list the patient has been on Tamiflu but he cannot recall whether he was diagnosed with influenza are not. Past Med Surg Social Fam HX - Past Medical History Medical history: atrial fibrillation (Unclear whether he is currently on Coumadin or not, he was on Coumadin in the past), COPD (Oxygen dependent using 2 L), coronary artery disease (History of CABG), diabetes (Not insulin-dependent ), hypertension, other (Gout, depression, CVA, systolic CHF with an ejection fraction of 30%, also diastolic dysfunction, ischemic cardiomyopathy, gout, GERD , History of avascular necrosis ) Psychiatric history: no psych history - Past Surgical History Surgical History: coronary bypass (CABG), other (Bilateral carotid endarterectomy) - Social History Smoking Status: Former smoker Smokeless Tobacco Status: No Alcohol use: rarely Drug use: none - Family History Daughter Family Member Ethnicity: Non- Living Status: Still Living Hx Family Cardiac Disorders: No Hx Family Respiratory Disorders: No Hx Family Cancer: No Hx Family GI Disorders: No Hx Family Endocrine Disorder: No Hx Family Neuromuscular Disorders: No Hx Family Neurologic Disorders: No Hx Family HEENT Disorders: No Hx Family Autoimmune Disorders: No Mother Living Status: Father Living Status: - Additional Family History Additional family history: Does not recall Internal Medicine - H&P: Meds Albuterol Sulfate [Albuterol Inhaler] 2 puff IH Q6H PRN 01/31/17 [History] Allopurinol [Zyloprim] 300 mg PO QAM 01/31/17 [History] Budesonide/Formoterol 160/4.5 [Symbicort 160/4.5] 2 puff IH BID 01/31/17 [ History] Digoxin [Lanoxin] 0.125 mg PO QAM 01/31/17 [History] Docusate [Colace] 100 mg PO BID 01/31/17 [History] Ergocalciferol (VITAMIN D2) [Vitamin D2] 50,000 unit PO QWEEK 01/31/17 [History] Fluticasone Propionate Nasal [Flonase] 100 mcg NS QAM 01/31/17 [History] Ipratropium/Albuterol Neb [Duoneb] 3 ml IH Q6H 01/31/17 [History] Nitroglycerin [Nitrostat] 0.4 mg SL Q5M PRN 01/31/17 [History] Potassium Chloride [Klor-Con 10] 10 meq PO QAM 01/31/17 [History] Simvastatin [Zocor] 20 mg PO HS 01/31/17 [History] Tiotropium [Spiriva] 18 mcg IH QAM 01/31/17 [History] Acetaminophen [Tylenol] 1,000 mg PO Q4H PRN 06/21/17 [History] Polyethylene Glycol 3350 [MiraLAX] 17 gm PO DAILY PRN 06/21/17 [History] Aspirin 81 mg PO QAM 10/14/17 [History] Bisacodyl [Dulcolax] 10 mg PO BID PRN 10/14/17 [History] Carvedilol 3.125 mg PO QAM 10/14/17 [History] Furosemide [Lasix] 20 mg PO QAM 10/14/17 [History] HYDROcodone/Acet 5/325 mg [[place] 5-325 mg] 1 tab PO Q6HR PRN 10/14/17 [History] Magnesium Hydroxide [Milk of Magnesia] 2,400 mg PO DAILY PRN 10/14/17 [History] Oseltamivir [Tamiflu] 75 mg PO DAILY 10/14/17 [History] Oxygen 2 l NS AD 10/14/17 [History] 3 Allergy/AdvReac Type Severity Reaction Status Date / Time Oxycodone [From OxyContin] Allergy Hives Verified 01/31/17 09:22 tramadol Allergy Hives Verified 01/31/17 09:22 fentyl patch Allergy Hives Uncoded 01/31/17 09:22 All Systems PM: A 10-system review of systems was performed and is negative for pertinent findings except as documented above in the HPI. Review of systems: Denies any chest pain, no abdominal pain, no fevers. Other systems out of the 10 reviewed were negative - Constitutional Vitals: Temp Pulse Resp BP Pulse Ox 97.6 F 81 18 142/77 96 10/14/17 13:55 10/14/17 13:55 10/14/17 14:11 10/14/17 13:55 10/14/17 14:29 General appearance: Present: A&O X 3 (Confused at times) - Head Head exam: Present: atraumatic, normocephalic - Eye Eye exam: Present: PERRL, conjuntiva pink, sclera anicteric Pupils: Present: PERRL - Neck Neck exam general surgery: Present: supple, trachea midline. Absent: lymphadenopathy - Respiratory Respiratory exam: Present: CTAB, rales (Bilateral blunted breath sounds with diffuse crackles). Absent: accessory muscle use, rhonchi, wheezes - Cardiovascular Cardiovascular exam: Present: RRR, +S1, +S2. Absent: diastolic murmur, gallop, rubs, systolic murmur - GI/Abdominal GI/Abdominal exam: Present: normal bowel sounds, soft, no peritoneal signs. Absent: distended, tenderness - Extremities Exam Extremities exam: Present: pedal edema (+1 pitting edema in both lower extremities), warm, radial pulses palpable and symmetrical. Absent: calf tenderness, cyanotic - Neurological Exam Neurological exam: Present: CN II-XII intact, oriented X3, no focal deficits. Absent: pronater drift, facial droop, speech deficit - Skin Skin exam: Present: dry, intact Additional comments: Padilla catheter in place Internal Med - H&P Results - Labs CBC & Chem 7: 10/14/17 14:26 10/14/17 14:26 Labs: Short CBC 10/14/17 Range/Units 14:26 WBC 7.9 (4.3-11.1) K/mcL Hgb 11.1 L (12.9-16.9) g/dL Hct 37.0 L (37.5-50.1) % Plt Count 275 (140-400) K/mcL Neutrophils # 6.0 (1.6-8.9) K/mcL BMP 10/14/17 14:26 Sodium 138 Potassium 4.3 Chloride 104 Carbon Dioxide 32 H BUN 19 Creatinine 0.90 Glucose 140 H Calcium 9.2 Cardiac Enzymes 10/14/17 Range/Units 14:26 Troponin I 0.03 (< 0.04) ng/mL - Impressions ITS Impressions Chest X-Ray 10/14/17 13:59 IMPRESSION: Bilateral pleural effusions, greater on the right and increased since the previous exam. D/ / Leila Akbar MD / Leila Akbar MD Interpreting Provider: Leila Akbar MD
[2017-10-14] MEDS ORDERED: Dextrose Gel 15 GM/37.5 ML TUBE PO PRN ×2 (17:07)
[2017-10-14] MEDS ORDERED: D5% in Water 1,000 ML IVC PRN (17:07)
[2017-10-14] MEDS ORDERED: *HR* Dextrose 50 % in Water (Syg) 50 ML SYRINGE IVP PRN (17:07)
[2017-10-14 17:36] LABS: INR 1.2; Prothrombin Time 13.2 Seconds (9.4-12.1)
[2017-10-14] MEDS: Furosemide 40 MG/4 ML VIAL IVP SCH (21:49)
[2017-10-15] MEDS: Insulin LISPRO 300 UNITS/3 ML VIAL SQ SCH ×5 (00:02→20:58)
[2017-10-15] MEDS: Melatonin 3 MG TABLET PO PRN ×2 (01:15→20:59)
[2017-10-15 05:40] LABS: BUN/Creatinine Ratio 27 (6-26); Blood Urea Nitrogen 23 mg/dL (8-23); Calcium 9.1 mg/dL (8.6-10.3); Carbon Dioxide 33 mEq/L (23-29); Chloride 103 mEq/L (98-107); Glucose 109 mg/dL (70-105); Osmolality,Calculated 294 (280-300); Potassium 4.1 mEq/L (3.5-5.1); Sodium 140 mEq/L (136-145); eGFR For African Americans > 60 (> 60); eGFR For Non-African Americans > 60 (> 60)
[2017-10-15] MEDS: Furosemide 40 MG/4 ML VIAL IVP SCH ×2 (11:17→18:47)
[2017-10-15] MEDS: *HR* Digoxin 0.125 MG TABLET PO SCH (11:18)
[2017-10-15] MEDS: Aspirin 81 MG TAB.CHEW PO SCH (11:18)
--- NOTE | 2017-10-15 16:35 | Internal Med Progress Note ---
Date of Encounter: 10/15/17 Time of Encounter: 09:25 - Assessment and plan (1) Acute congestive heart failure Current Visit: Yes Status: Acute Assessment and plan: Echocardiogram from January 2017 shows LVEF estimated at 30%. Indeterminate left ventricular diastolic function. Trace aortic regurgitation. Moderate mitral regurgitation. Continue IV Lasix, fluid restriction, urine output monitoring. Continue beta nicky, supplemental oxygen and supportive care. Qualifiers: Congestive heart failure type: combined Qualified Code(s): I50.41 - Acute combined systolic (congestive) and diastolic (congestive) heart failure (2) Atrial fibrillation Current Visit: Yes Status: Chronic Assessment and plan: Currently rate controlled. Continue beta nicky. Not noted to be on anticoagulation as an outpatient, probably due to fall risk. Continue aspirin. Qualifiers: Atrial fibrillation type: paroxysmal Qualified Code(s): I48.0 - Paroxysmal atrial fibrillation (3) COPD (chronic obstructive pulmonary disease) Current Visit: Yes Status: Chronic Assessment and plan: Not in acute exacerbation. Continue when necessary bronchodilators. Noted to be on supplemental oxygen at skilled nursing. Patient is also on Tamiflu, likely being treated for influenza. Qualifiers: COPD type: unspecified COPD Qualified Code(s): J44.9 - Chronic obstructive pulmonary disease, unspecified (4) Coronary artery disease Current Visit: Yes Status: Chronic Qualifiers: Coronary Disease-Associated Artery/Lesion type: [place] artery [place] vs. transplanted heart: [place] heart Associated angina: without angina Qualified Code(s): I25.10 - Atherosclerotic heart disease of [place] coronary artery without angina pectoris (5) Diabetes Current Visit: Yes Status: Chronic Assessment and plan: Continue Accu-Chek blood glucose monitoring with sliding scale insulin. Diabetic diet. Check hemoglobin A1c. Qualifiers: Diabetes mellitus type: type 2 Diabetes mellitus complication status: with unspecified complications Diabetes mellitus extermination inspector insulin use: without [facility] use Qualified Code(s): E11.8 - Type 2 diabetes mellitus with unspecified complications - Subjective Interval history: Noted to be confused. He reports that he had some things to take care of her at home, insisted on being discharged. 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 Denies chest pain, shortness of breath, palpitations. Reports that he was admitted because of fluid in his lungs. - Constitutional Vitals: Temp Pulse Resp BP Pulse Ox 97.5 F L 75 20 114/64 92 10/15/17 16:14 10/15/17 16:14 10/15/17 16:14 10/15/17 16:14 10/15/17 16:14 General appearance: Present: A&O X 2. Absent: answers questions appropriately - Respiratory Respiratory exam: Present: CTAB (coarse breath sounds B/L). Absent: accessory muscle use, rales, rhonchi, wheezes - Cardiovascular Cardiovascular exam: Present: irregular rhythm, +S1, +S2. Absent: diastolic murmur, gallop, rubs, systolic murmur - GI/Abdominal GI/Abdominal exam: Present: normal bowel sounds, soft, no peritoneal signs. Absent: distended, tenderness - Extremities Exam Extremities exam: Present: full ROM, warm, radial pulses palpable and symmetrical. Absent: calf tenderness, cyanotic, pedal edema - Neurological Exam Neurological exam: Present: altered, CN II-XII intact, no focal deficits. Absent: pronater drift, facial droop, speech deficit Internal Medicine: Result - Labs CBC & Chem 7: 10/14/17 14:26 10/15/17 05:02 Labs: BMP 10/15/17 05:02 Sodium 140 Potassium 4.1 Chloride 103 Carbon Dioxide 33 H BUN 23 Creatinine 0.85 Glucose 109 H Calcium 9.1 - ABG Interpretation ABG results: PT/INR, D-dimer PT 13.2 Seconds (9.4-12.1) H 10/14/17 14:26 Consult Discharge Plan - Plan Referrals: NONE,PCP [Primary Care Provider] -
[2017-10-16] MEDS: Insulin LISPRO 300 UNITS/3 ML VIAL SQ SCH ×3 (07:30→18:00)
[2017-10-16] MEDS: Aspirin 81 MG TAB.CHEW PO SCH (13:01)
[2017-10-16] MEDS: *HR* Digoxin 0.125 MG TABLET PO SCH (13:01)
--- NOTE | 2017-10-16 15:29 | Internal Med Progress Note ---
Date of Encounter: 10/16/17 Time of Encounter: 10:20 - Assessment and plan (1) Acute congestive heart failure Current Visit: Yes Status: Acute Assessment and plan: Echocardiogram from January 2017 shows LVEF estimated at 30%. Indeterminate left ventricular diastolic function. Trace aortic regurgitation. Moderate mitral regurgitation. Improving clinically. Noted to have at least 5 L of net negative fluid balance , excellent urine output. Will change Lasix to oral form. Discontinue Padilla catheter. Continue fluid restriction, urine output monitoring. Continue beta nicky, supplemental oxygen and supportive care. Qualifiers: Congestive heart failure type: combined Qualified Code(s): I50.41 - Acute combined systolic (congestive) and diastolic (congestive) heart failure (2) Atrial fibrillation Current Visit: Yes Status: Chronic Assessment and plan: Currently rate controlled. Continue beta nicky. Not noted to be on anticoagulation as an outpatient, probably due to fall risk. Continue aspirin. Qualifiers: Atrial fibrillation type: paroxysmal Qualified Code(s): I48.0 - Paroxysmal atrial fibrillation (3) COPD (chronic obstructive pulmonary disease) Current Visit: Yes Status: Chronic Assessment and plan: Not in acute exacerbation. Continue when necessary bronchodilators. Noted to be on supplemental oxygen at [facility]. Patient is also on Tamiflu, likely being treated for influenza. Qualifiers: COPD type: unspecified COPD Qualified Code(s): J44.9 - Chronic obstructive pulmonary disease, unspecified (4) Coronary artery disease Current Visit: Yes Status: Chronic Qualifiers: Coronary Disease-Associated Artery/Lesion type: [place] artery [place] vs. transplanted heart: [place] heart Associated angina: without angina Qualified Code(s): I25.10 - Atherosclerotic heart disease of [place] coronary artery without angina pectoris (5) Diabetes Current Visit: Yes Status: Chronic Assessment and plan: Continue Accu-Chek blood glucose monitoring with sliding scale insulin. Diabetic diet. 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 Disoriented to place and time. No chest pain, shortness of breath, palpitations. Unable to provide history due to dementia. - Constitutional Vitals: Temp Pulse Resp BP Pulse Ox 98.1 F 87 16 116/69 96 10/16/17 11:05 10/16/17 11:05 10/16/17 11:05 10/16/17 11:05 10/16/17 11:05 General appearance: Present: A&O X 1. Absent: answers questions appropriately - Respiratory Respiratory exam: Present: CTAB. Absent: accessory muscle use, rales, rhonchi, wheezes - Cardiovascular Cardiovascular exam: Present: irregular rhythm, +S1, +S2. Absent: diastolic murmur, gallop, rubs, systolic murmur - GI/Abdominal GI/Abdominal exam: Present: normal bowel sounds, soft, no peritoneal signs. Absent: distended, tenderness - Extremities Exam Extremities exam: Present: full ROM, pedal edema, warm, radial pulses palpable and symmetrical. Absent: calf tenderness, cyanotic Internal Medicine: Result - Labs CBC & Chem 7: 10/14/17 14:26 10/15/17 05:02 - ABG Interpretation ABG results: PT/INR, D-dimer PT 13.2 Seconds (9.4-12.1) H 10/14/17 14:26 Consult Discharge Plan - Plan Referrals: NONE,PCP [Primary Care Provider] -
[2017-10-16] MEDS: Furosemide 40 MG/4 ML VIAL IVP SCH (15:31)
[2017-10-16] MEDS: Furosemide 40 MG TABLET PO SCH (18:13)
[2017-10-17] MEDS: Insulin LISPRO 300 UNITS/3 ML VIAL SQ SCH ×3 (00:33→11:49)
[2017-10-17] MEDS: *HR* Digoxin 0.125 MG TABLET PO SCH (08:00)
[2017-10-17] MEDS: Furosemide 40 MG TABLET PO SCH (08:01)
[2017-10-17] MEDS: Aspirin 81 MG TAB.CHEW PO SCH (08:01)
[2017-10-17 11:27] VITALS: BP 118/75
--- NOTE | 2017-10-17 13:51 | Discharge Summary ---
Date of Encounter: 10/17/17 Time of Encounter: 11:55 - Discharge Diagnosis (1) Acute congestive heart failure Priority: Primary Status: Acute Qualifiers: Congestive heart failure type: combined Qualified Code(s): I50.41 - Acute combined systolic (congestive) and diastolic (congestive) heart failure (2) Atrial fibrillation Priority: Secondary Status: Chronic Qualifiers: Atrial fibrillation type: paroxysmal Qualified Code(s): I48.0 - Paroxysmal atrial fibrillation (3) COPD (chronic obstructive pulmonary disease) Priority: Secondary Status: Chronic Qualifiers: COPD type: unspecified COPD Qualified Code(s): J44.9 - Chronic obstructive pulmonary disease, unspecified (4) Coronary artery disease Priority: Secondary Status: Chronic Qualifiers: Coronary Disease-Associated Artery/Lesion type: [place] artery [place] vs. transplanted heart: [place] heart Associated angina: without angina Qualified Code(s): I25.10 - Atherosclerotic heart disease of [place] coronary artery without angina pectoris (5) Diabetes Priority: Secondary Status: Chronic Qualifiers: Diabetes mellitus type: type 2 Diabetes mellitus complication status: with unspecified complications Diabetes mellitus terminal operator insulin use: without terminal operator use Qualified Code(s): E11.8 - Type 2 diabetes mellitus with unspecified complications - Discharge Medications Home Medications: Albuterol Sulfate [Albuterol Inhaler] 2 puff IH Q6H PRN 01/31/17 [History] Allopurinol [Zyloprim] 300 mg PO QAM 01/31/17 [History] Budesonide/Formoterol 160/4.5 [Symbicort 160/4.5] 2 puff IH BID 01/31/17 [ History] Digoxin [Lanoxin] 0.125 mg PO QAM 01/31/17 [History] Docusate [Colace] 100 mg PO BID 01/31/17 [History] Ergocalciferol (VITAMIN D2) [Vitamin D2] 50,000 unit PO QWEEK 01/31/17 [History] Fluticasone Propionate Nasal [Flonase] 100 mcg NS QAM 01/31/17 [History] Ipratropium/Albuterol Neb [Duoneb] 3 ml IH Q6H 01/31/17 [History] Nitroglycerin [Nitrostat] 0.4 mg SL Q5M PRN 01/31/17 [History] Potassium Chloride [Klor-Con 10] 10 meq PO QAM 01/31/17 [History] Simvastatin [Zocor] 20 mg PO HS 01/31/17 [History] Tiotropium [Spiriva] 18 mcg IH QAM 01/31/17 [History] Acetaminophen [Tylenol] 1,000 mg PO Q4H PRN 06/21/17 [History] Polyethylene Glycol 3350 [MiraLAX] 17 gm PO DAILY PRN 06/21/17 [History] Aspirin 81 mg PO QAM 10/14/17 [History] Bisacodyl [Dulcolax] 10 mg PO BID PRN 10/14/17 [History] Carvedilol 3.125 mg PO QAM 10/14/17 [History] Magnesium Hydroxide [Milk of Magnesia] 2,400 mg PO DAILY PRN 10/14/17 [History] Oxygen 2 l NS AD 10/14/17 [History] Furosemide [Lasix] 20 mg PO BID #60 10/17/17 [Rx] HYDROcodone/Acet 5/325 mg [[place] 5-325 mg] 1 tab PO Q6HR PRN #10 10/17/17 [Rx] Allergies/Adverse Reactions: 3 Allergy/AdvReac Type Severity Reaction Status Date / Time Oxycodone [From OxyContin] Allergy Hives Verified 01/31/17 09:22 tramadol Allergy Hives Verified 01/31/17 09:22 fentyl patch Allergy Hives Uncoded 01/31/17 09:22 Date of admission: 10/14/17 17:02 Primary care physician: PCP NONE Consults: 10/14/17 22:07 Consult to Nutrition [CONS] Routine Comment: Consulting Provider: NUTRITION Reason for Dietary Consult: MST Score 10/16/17 06:04 Consult to Speech Therapy [CONS] Routine Comment: Evaluate, develop and implement POC Reason for Consult: possible aspiration, patient choking on drins. Call Completed: No Discharging clinician: Louisa Nieves Anticipated date of discharge: 10/17/17 - Patient Status Disposition: Transfer SNF Condition: Good Functional capacity at discharge: independent ambulation Overall status at discharge: patient is progressing back to baseline - Discharge Instructions Follow Up With: NONE,PCP [Non-Partnered Physician] - Additional Instructions: F/up with PCP in 1-2 weeks - Diet and Activity Activity: as per physical therapy, wear oxygen at all times Diet: diabetic diet (soft diet, nectar thick liquids), low fat, low cholesterol , low salt diet, other (fluid restriction to 1.5L/day) Hospital course: Mr. Kumar is a 76 year old male with the above medical problems, who was [facility] from [facility] with shortness of breath. He was noted to be in acute exacerbation of CHF and started on IV Lasix, fluid restriction, urine output monitoring. He signficantly improved on this regimen and had at least 4.5L net negative fluid balance. Echocardiogram from January 2017 shows LVEF estimated at 30% . Indeterminate left ventricular diastolic function. Trace aortic regurgitation. Moderate mitral regurgitation. He was switched to oral Lasix and tolerated well. He was noted to have dysphagia and choking; swallow evaluation was completed by [employer]BER and recommended soft diet and nectar thick liquids. He has underlying dementia and cannot provide history or answer appropriately. [facility] - Time Spent with Patient Total time spent providing and/or coordinating discharge services: Greater than 30 minutes (45 min) - Constitutional Vitals: Temp Pulse Resp BP Pulse Ox 97.5 F L 103 20 118/75 96 10/17/17 11:20 10/17/17 11:20 10/17/17 11:20 10/17/17 11:20 10/17/17 11:20 General appearance: Present: A&O X 1. Absent: answers questions appropriately - Respiratory Respiratory exam: Present: CTAB. Absent: accessory muscle use, rales, rhonchi, wheezes
--- NOTE | 2017-10-17 13:58 | Physician Discharge Referral ---
ExtendedCare Referral Info Transfer To: [facility] Provider in Charge: Louisa Nieves Provider in Charge after Transfer: PCP Institutional Level of Care: Skilled - Diagnosis (1) Acute congestive heart failure Priority: Primary Status: Acute (2) Atrial fibrillation Priority: Secondary Status: Chronic (3) COPD (chronic obstructive pulmonary disease) Priority: Secondary Status: Chronic (4) Coronary artery disease Priority: Secondary Status: Chronic (5) Diabetes Priority: Secondary Status: Chronic Expected Duration of Placement: terminal make up operator Prognosis: Fair Aware of Diagnosis: Family Aware of Prognosis: Family - Transfer Medications Home Medications: Albuterol Sulfate [Albuterol Inhaler] 2 puff IH Q6H PRN 01/31/17 [History] Allopurinol [Zyloprim] 300 mg PO QAM 01/31/17 [History] Budesonide/Formoterol 160/4.5 [Symbicort 160/4.5] 2 puff IH BID 01/31/17 [ History] Digoxin [Lanoxin] 0.125 mg PO QAM 01/31/17 [History] Docusate [Colace] 100 mg PO BID 01/31/17 [History] Ergocalciferol (VITAMIN D2) [Vitamin D2] 50,000 unit PO QWEEK 01/31/17 [History] Fluticasone Propionate Nasal [Flonase] 100 mcg NS QAM 01/31/17 [History] Ipratropium/Albuterol Neb [Duoneb] 3 ml IH Q6H 01/31/17 [History] Nitroglycerin [Nitrostat] 0.4 mg SL Q5M PRN 01/31/17 [History] Potassium Chloride [Klor-Con 10] 10 meq PO QAM 01/31/17 [History] Simvastatin [Zocor] 20 mg PO HS 01/31/17 [History] Tiotropium [Spiriva] 18 mcg IH QAM 01/31/17 [History] Acetaminophen [Tylenol] 1,000 mg PO Q4H PRN 06/21/17 [History] Polyethylene Glycol 3350 [MiraLAX] 17 gm PO DAILY PRN 06/21/17 [History] Aspirin 81 mg PO QAM 10/14/17 [History] Bisacodyl [Dulcolax] 10 mg PO BID PRN 10/14/17 [History] Carvedilol 3.125 mg PO QAM 10/14/17 [History] Magnesium Hydroxide [Milk of Magnesia] 2,400 mg PO DAILY PRN 10/14/17 [History] Oxygen 2 l NS AD 10/14/17 [History] Furosemide [Lasix] 20 mg PO BID #60 10/17/17 [Rx] HYDROcodone/Acet 5/325 mg [[place] 5-325 mg] 1 tab PO Q6HR PRN #10 10/17/17 [Rx] Allergies/Adverse Reactions: 3 Allergy/AdvReac Type Severity Reaction Status Date / Time Oxycodone [From OxyContin] Allergy Hives Verified 01/31/17 09:22 tramadol Allergy Hives Verified 01/31/17 09:22 fentyl patch Allergy Hives Uncoded 01/31/17 09:22 - Respiratory Orders Oxygen / L per min (3L/min via NC) Smoking Cessation: Smoking cessation has been advised. For more information, call the [place] [employer] Quit Line at 4-174-NGER-NOW. - Advance Directives Power of Manufacturing Process Technician: Yes (Daughter) Code Status: Full Code - Rehabiliation Orders Rehab Potential: Fair Rehab Orders: ROM Exercises, Evaluation for Physical Therapy, Evaluation for Occupational Therapy, Evaluation for Speech Therapy - Diet Orders Mechanical Soft (nectar thickened liquids), No Concentrated Sweets (diabetic), Cardiac CERTIFICATION: I certify that the transfer of the above named patient to an Extended Care Facility is necessary for the continuing treatment of the diagnosis listed. The above information is true and accurate reflection of patient's current condition. Confidential - Redisclosure prohibited without a patient's written consent.
--- NOTE | 2017-10-18 15:22 | Electrocardiograph Report ---
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
== END 2017-10-17 15:10 ==
LOC: EMEROO 13:53 → 2ANU 13:53 → SUATTDRO 17:02 → 2ANU 19:29
PROVIDERS: ADMIT Internal Medicine; ATTEND Internal Medicine

== ENCOUNTER 2017-10-21 08:50 | Inpatient (IN) ==
[2017-10-21] MEDS ORDERED: Ipratropium/Albuterol Neb 3 ML IH ONE (08:57)
[2017-10-21] MEDS ORDERED: Ipratropium/Albuterol Neb 3 ML ONE (08:59)
[2017-10-21 09:36] LABS: BUN/Creatinine Ratio 23 (6-26); Blood Urea Nitrogen 22 mg/dL (8-23); Calcium 9.1 mg/dL (8.6-10.3); Carbon Dioxide 32 mEq/L (23-29); Chloride 95 mEq/L (98-107); Glucose 154 mg/dL (70-105); Osmolality,Calculated 280 (280-300); Potassium 4.3 mEq/L (3.5-5.1); Sodium 132 mEq/L (136-145); eGFR For African Americans > 60 (> 60); eGFR For Non-African Americans > 60 (> 60)
--- NOTE | 2017-10-21 09:41 | Emergency Department Note ---
Disposition Clinical Impression: Acute exacerbation of chronic obstructive airways disease Acute and chronic respiratory failure Qualifiers: Respiratory failure complication: unspecified whether with hypoxia or hypercapnia Qualified Code(s): J96.20 - Acute and chronic respiratory failure, unspecified whether with hypoxia or hypercapnia Atrial fibrillation Qualifiers: Atrial fibrillation type: paroxysmal Qualified Code(s): I48.0 - Paroxysmal atrial fibrillation Disposition: Admitted As Inpatient Condition: Fair Referrals: Hakeem Quan [Primary Care Provider] - Forms: ED Satisfaction Letter Time of Disposition: 11:08 SOB HPI - General Chief Complaint: ED Shortness of Breath/Dyspnea Stated Complaint: SOB Time Seen by Provider: 10/21/17 08:55 Source: patient, EMS Limitations: no limitations Nursing Notes Reviewed: Yes Vital Signs Reviewed: Yes - History of Present Illness 76-year-old male history of CHF, COPD, oxygen dependent, dementia, DNR [facility], presents with respiratory failure and hypoxia, patient was satting 80% range on nasal cannula, tried BiPAP or CPAP at the nursing facility was unable to his oxygen up, paramedics verbally was oxygen saturation 93% with BiPAP, we gave him a breathing treatment as well, patient denies productive cough fever, chest pain, is recently released a few days ago from a nursing facility. Patient denies abdominal pain, he is a somewhat limited historian some history is obtained from records review as well as EMS records. 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 Denies: chest pain, pain with inspiration, fever, cough, sputum production, orthopnea Treatment prior to arrival: oxygen, bronchodilator Cough present: Yes Cough Description: Voluntary Cough Frequency: Intermittent Sputum production: Yes - Related Data Home oxygen amount: 2 liters Home Medications Medication Instructions Recorded Confirmed Albuterol Sulfate [Albuterol 2 puff IH Q6H PRN 01/31/17 10/21/17 Inhaler] Allopurinol [Zyloprim] 300 mg PO QAM 01/31/17 10/21/17 Budesonide/Formoterol 160/4.5 2 puff IH BID 01/31/17 10/21/17 [Symbicort 160/4.5] Digoxin [Lanoxin] 0.125 mg PO QAM 01/31/17 10/21/17 Docusate [Colace] 100 mg PO BID 01/31/17 10/21/17 Ergocalciferol (VITAMIN D2) 50,000 unit PO QWEEK 01/31/17 10/21/17 [Vitamin D2] Fluticasone Propionate Nasal 100 mcg NS QAM 01/31/17 10/21/17 [Flonase] Ipratropium/Albuterol Neb [Duoneb] 3 ml IH Q6H 01/31/17 10/21/17 Nitroglycerin [Nitrostat] 0.4 mg SL Q5M PRN 01/31/17 10/21/17 Potassium Chloride [Klor-Con 10] 10 meq PO QAM 01/31/17 10/21/17 Simvastatin [Zocor] 20 mg PO HS 01/31/17 10/21/17 Tiotropium [Spiriva] 18 mcg IH QAM 01/31/17 10/21/17 Acetaminophen [Tylenol] 1,000 mg PO Q4H PRN 06/21/17 10/21/17 Polyethylene Glycol 3350 [MiraLAX] 17 gm PO DAILY PRN 06/21/17 10/21/17 Aspirin 81 mg PO QAM 10/14/17 10/21/17 Bisacodyl [Dulcolax] 10 mg PO BID PRN 10/14/17 10/21/17 Carvedilol 3.125 mg PO QAM 10/14/17 10/21/17 Magnesium Hydroxide [Milk of 2,400 mg PO DAILY PRN 10/14/17 10/21/17 Magnesia] Oxygen 2 l NS AD 10/14/17 10/21/17 GuaiFENesin ER [Mucinex] 600 mg PO BID 10/21/17 10/21/17 Previous Rx's Medication Instructions Recorded Furosemide [Lasix] 20 mg PO BID #60 10/17/17 HYDROcodone/Acet 5/325 mg [[place] 1 tab PO Q6HR PRN #10 10/17/17 5-325 mg] Allergies Allergy/AdvReac Type Severity Reaction Status Date / Time Oxycodone [From OxyContin] Allergy Hives Verified 01/31/17 09:22 tramadol Allergy Hives Verified 01/31/17 09:22 fentyl patch Allergy Hives Uncoded 05/15/17 09:22 All systems ED: reviewed and negative except as stated. Review of Systems: As Per HPI (Limited due to patient's mental state) Constitutional: Denies: fever, chills Eyes: Denies: eye pain ENT ED: Denies: ear pain Cardiovascular: Denies: chest pain Respiratory: Reports: as per HPI, dyspnea. Denies: wheezes Gastrointestinal: Denies: abdominal pain Genitourinary: Denies: urgency Musculoskeletal: Denies: back pain Integumentary: Denies: rash Neurological: Denies: headache Past Medical History - Past Medical History Attestation: Yes The following information was validated with the patient. Source: patient, old records reviewed, obtained from family Medical history: Reports: atrial fibrillation, COPD, coronary artery disease, diabetes, hypertension, other Surgical history: Reports: coronary bypass (CABG) Psychiatric history: Reports: no psych history - Social History Smoking Status: Former smoker Smokeless Tobacco Status: No Alcohol use: Reports: rarely Drug use: Reports: none Physical Exam Constitutional: Elderly male in moderate respiratory distress on CPAP Eyes: PERRLA, sclera anicteric ENT & Mouth: MMM Neck: normal inspection, neck is supple Resp: Prolonged expiratory phase, moderate respiratory distress with wheezes bilaterally crackles at the bases CV: Tachycardia irregularly irregular, no m/g/r GI: normal inspection, soft, no guarding or rigidity Neuro: A&O3, CNII-XII grossly intact, NICE Skin: Poor skin turgor - General Limitations: altered mental status, age General appearance: in distress (Moderate) Course Course Narrative: 76-year-old male with what appears to be acute on chronic respiratory distress, hypoxia, patient appears moderately dyspneic, plan is for CBC BMP troponin, basic lab work chest x-ray 3 DuoNeb treatments were ordered, VBG to check his blood gas, basic lab work and reassess. BiPAP ordered at bedside respiratory therapist available at bedside - Reevaluation(s) Reevaluation #1: Evidence of hypercapnic acidemia respiratory failure, contacted the hospitalist patient will be placed on 2 N., breathing treatments as well as IV diuresis were ordered. Patient is hemodynamically stable tolerating BiPAP. Requests no intubation. Nkadi accepts patient has evaluated the patient at bedside Time: 11:07 Vital Signs Temperature 97.9 F 10/21/17 08:53 Pulse Rate 105 10/21/17 08:53 Respiratory Rate 42 10/21/17 08:53 Blood Pressure 143/116 10/21/17 08:53 O2 Sat by Pulse Oximetry 98 10/21/17 08:53 Temperature 97.9 F 10/21/17 08:53 Pulse Rate 94 10/21/17 10:15 Respiratory Rate 36 10/21/17 10:15 Blood Pressure 127/75 10/21/17 10:15 O2 Sat by Pulse Oximetry 98 10/21/17 10:15 Oxygen Delivery Oxygen Delivery Bipap Shortness of Breath/Dyspnea - Differential Diagnosis Likely: congestive heart failure, pneumonia, pulmonary embolism - Medical Records Medical records reviewed: Yes I reviewed the patient's medical records. - Lab Data Lab results reviewed: Yes I reviewed the patient's lab results. Result diagrams: 10/21/17 09:13 Lab Results 10/21/17 10/21/17 10/21/17 Range/Units 09:13 09:13 09:13 VBG pH (7.32-7.42) pH Units VBG pCO2 (41-51) mmHg VBG pO2 (25-50) mmHg VBG HCO3 (21-27) mEq/L Sodium 132 L (136-145) mEq/L Potassium 4.3 (3.5-5.1) mEq/L Chloride 95 L (98-107) mEq/L Carbon Dioxide 32 H (23-29) mEq/L BUN 22 (8-23) mg/dL Creatinine 0.95 (0.70-1.30) mg/dL Est GFR ( Amer) > 60 (> 60) Est GFR (Non-Af Amer) > 60 (> 60) BUN/Creatinine Ratio 23 (6-26) Glucose 154 H (70-105) mg/dL Calculated Osmolality 280 (280-300) Lactic Acid 1.3 (0.5-2.2) mmol/L Calcium 9.1 (8.6-10.3) mg/dL Troponin I 0.09 H* (< 0.04) ng/mL B-Natriuretic Peptide (Less than 100) pg/mL 10/21/17 10/21/17 Range/Units 09:13 10:12 VBG pH 7.26 L (7.32-7.42) pH Units VBG pCO2 74 H* (41-51) mmHg VBG pO2 34 (25-50) mmHg VBG HCO3 34 H (21-27) mEq/L Sodium (136-145) mEq/L Potassium (3.5-5.1) mEq/L Chloride (98-107) mEq/L Carbon Dioxide (23-29) mEq/L BUN (8-23) mg/dL Creatinine (0.70-1.30) mg/dL Est GFR ( Amer) (> 60) Est GFR (Non-Af Amer) (> 60) BUN/Creatinine Ratio (6-26) Glucose (70-105) mg/dL Calculated Osmolality (280-300) Lactic Acid (0.5-2.2) mmol/L Calcium (8.6-10.3) mg/dL Troponin I (< 0.04) ng/mL B-Natriuretic Peptide 931 H (Less than 100) pg/mL - Radiology Data Radiology results reviewed: Yes I reviewed the patient's radiology results. Chest X-Ray 10/21/17 08:57 IMPRESSION: Trace pleural effusions, nearly completely resolved compared to 10/14/2017. Minimal left basilar atelectasis, significantly improved from the prior exam as well. Persistent interstitial pulmonary edema. D/ / 10/21/2017 10:06:55 Stanton Bran MD / Alejandra Babb Interpreting Provider: Stanton Bran MD - EKG Data EKG attestation: Yes I reviewed and interpreted this EKG. EKG shows normal: Reports: sinus rhythm Rate: Reports: tachycardia Rhythm: Reports: A.Fib (105 bpm QRS 154 QTc 393 no acute ischemic changes, ST depressions in V5 and V6 seen on previous EKGs) Interpretation: Reports: nonspecific ST-T wave changes - Core Measures AMI Core Measures Followed: No Attestation Statement - Attestation Attestation: I, Irwin Kay DO, examined this patient [id number] and my medical decision-making was reviewed with Dr. Reji Mg, Resident Physician. I agree with the documented findings, disposition and treatment plan as described except to the extent set forth below. Please see my progress notes for details. 76-year-old male presents emergency room by EMS for evaluation of increased work of breathing and shortness of breath. Patient is currently at a nursing facility. They were concerned about his increased work of breathing aside and sent to the emergency room. On transport patient was hypoxic in the 70-80% range. He is placed on a CPAP machine in transit and his pulse ox came up to 98 %. He was also given 125 mg of Solu-Medrol and a DuoNeb in transport by EMS. On physical exam on presentation the patient is mentating he is breathing easily he is tolerating the BiPAP machine without complication. His lungs do appear to be coarse with constant wheezing throughout all lung marx. His abdomen is soft nontender nondistended. His heart is tachycardic but otherwise regular. Patient has no signs of specific pitting edema. He is neurologically intact with no acute signs of cranial nerve deficit or abnormality. Patient will have detailed workup completed for respiratory related issues Plan admission. Patient otherwise has no other physical exam findings that are concerning at this point. Aspirin was given after a troponin came back as elevated. His initial EKG did not show any acute signs of ST segment elevation or myocardial infarction. Troponin was elevated here in the emergency room and his BNP was elevated as well. Hospitalist evaluate the patient at the bedside and recommended a single dose of Lasix. Aspirin was started given. Patient is currently denying chest pain and has denied chest pain throughout the entire course of care. Patient will be admitted for stabilization of his respiratory related issues along with his cardiac symptoms. Patient is otherwise stable. See detailed documentation of physical exam, medical intervention, medical decision-making and disposition and the resident physician's note. No critical care was applied to this patient's treatment course.
[2017-10-21] MEDS ORDERED: Aspirin 81 MG TAB.CHEW PO ONE (10:15)
[2017-10-21 10:29] LABS: VBG HCO3 34 mEq/L (21-27); VBG PCO2 74 mmHg (41-51); VBG PH 7.26 pH Units (7.32-7.42); VBG PO2 34 mmHg (25-50)
[2017-10-21] MEDS ORDERED: Furosemide 40 MG/4 ML VIAL IVP ONE (10:48)
--- NOTE | 2017-10-21 10:59 | Internal Med History&Physical ---
Date of Encounter: 10/21/17 Time of Encounter: 10:56 Assessment and Plan (1) Acute and chronic respiratory failure Current visit: No Status: Acute Acute on chronic respiratory failure with hypoxemia and hypercapnia patient is a DNR CCA DO NOT INTUBATE was started on DuoNeb and IV steroid Qualifiers: Respiratory failure complication: hypoxia and hypercapnia Qualified Code(s) : J96.21 - Acute and chronic respiratory failure with hypoxia; J96.22 - Acute and chronic respiratory failure with hypercapnia; J96.22 - Acute and chronic respiratory failure with hypercapnia; J96.22 - Acute and chronic respiratory failure with hypercapnia (2) Acute congestive heart failure Current visit: No Status: Acute Acute on chronic systolic heart failure with bilateral rales rhonchi and BNP 931 was started on IV Lasix Qualifiers: Congestive heart failure type: combined Qualified Code(s): I50.41 - Acute combined systolic (congestive) and diastolic (congestive) heart failure (3) COPD (chronic obstructive pulmonary disease) Current visit: No Status: Chronic COPD with acute exacerbation Qualifiers: COPD type: unspecified COPD Qualified Code(s): J44.9 - Chronic obstructive pulmonary disease, unspecified (4) Coronary artery disease Current visit: No Status: Chronic No chest pain troponin is mildly elevated with troponin troponin Qualifiers: Coronary Disease-Associated Artery/Lesion type: [place] artery [place] vs. transplanted heart: [place] heart Associated angina: without angina Qualified Code(s): I25.10 - Atherosclerotic heart disease of [place] coronary artery without angina pectoris (5) Diabetes Current visit: No Status: Chronic Chronic resume home medication and place on sliding scale Qualifiers: Diabetes mellitus type: type 2 Diabetes mellitus complication status: with unspecified complications Diabetes mellitus terminologist insulin use: without usp use Qualified Code(s): E11.8 - Type 2 diabetes mellitus with unspecified complications Internal Medicine - H&P: HPI Chief complaint: sob Admitted From: Emergency Dept Plans for Post Hospital Care: Transfer Senior Care Facility History of present illness: Mr. Kumar is a 76 year old male Patient with history of COPD O2 dependent and lives in senior living patients has chronic atrial fibrillation on anticoagulation, high cholesterol, GERD, diabetes, congestive heart failure EF 30%, CAD,/cabg patient was just discharged on October 17 following treatment for respiratory failure and congestive heart failure Patient was sent from senior living to emergency room due to increased shortness of breath saturation was in the 80s percent and brought to the emergency room patient was placed on BiPAP saturation is now above 90% initially ABG is pH 7.26 PCO2 74 chest x-ray shows congestive heart failure no pneumonia BNP 931 patient is a DNR CCA DO NOT INTUBATE patient will then be sent to [facility] for follow treatment. He appears comfortable in mild respiratory distress with bilateral wheezing and rhonchi Past Med Surg Social Fam HX - Past Medical History Medical history: atrial fibrillation, COPD, coronary artery disease, diabetes, hypertension, other Psychiatric history: no psych history - Past Surgical History Surgical History: coronary bypass (CABG) - Social History Smoking Status: Former smoker Smokeless Tobacco Status: No Alcohol use: rarely Drug use: none - Family History Daughter Family Member Ethnicity: Non- Living Status: Still Living Hx Family Cardiac Disorders: No Hx Family Respiratory Disorders: No Hx Family Cancer: No Hx Family GI Disorders: No Hx Family Endocrine Disorder: No Hx Family Neuromuscular Disorders: No Hx Family Neurologic Disorders: No Hx Family HEENT Disorders: No Hx Family Autoimmune Disorders: No Mother Living Status: Father Living Status: Internal Medicine - H&P: Meds Albuterol Sulfate [Albuterol Inhaler] 2 puff IH Q6H PRN 01/31/17 [History] Allopurinol [Zyloprim] 300 mg PO QAM 01/31/17 [History] Budesonide/Formoterol 160/4.5 [Symbicort 160/4.5] 2 puff IH BID 01/31/17 [ History] Digoxin [Lanoxin] 0.125 mg PO QAM 01/31/17 [History] Docusate [Colace] 100 mg PO BID 01/31/17 [History] Ergocalciferol (VITAMIN D2) [Vitamin D2] 50,000 unit PO QWEEK 01/31/17 [History] Fluticasone Propionate Nasal [Flonase] 100 mcg NS QAM 01/31/17 [History] Ipratropium/Albuterol Neb [Duoneb] 3 ml IH Q6H 01/31/17 [History] Nitroglycerin [Nitrostat] 0.4 mg SL Q5M PRN 01/31/17 [History] Potassium Chloride [Klor-Con 10] 10 meq PO QAM 01/31/17 [History] Simvastatin [Zocor] 20 mg PO HS 01/31/17 [History] Tiotropium [Spiriva] 18 mcg IH QAM 01/31/17 [History] Acetaminophen [Tylenol] 1,000 mg PO Q4H PRN 06/21/17 [History] Polyethylene Glycol 3350 [MiraLAX] 17 gm PO DAILY PRN 06/21/17 [History] Aspirin 81 mg PO QAM 10/14/17 [History] Bisacodyl [Dulcolax] 10 mg PO BID PRN 10/14/17 [History] Carvedilol 3.125 mg PO QAM 10/14/17 [History] Magnesium Hydroxide [Milk of Magnesia] 2,400 mg PO DAILY PRN 10/14/17 [History] Oxygen 2 l NS AD 10/14/17 [History] Furosemide [Lasix] 20 mg PO BID #60 10/17/17 [Rx] HYDROcodone/Acet 5/325 mg [[place] 5-325 mg] 1 tab PO Q6HR PRN #10 10/17/17 [Rx] GuaiFENesin ER [Mucinex] 600 mg PO BID 10/21/17 [History] 3 Allergy/AdvReac Type Severity Reaction Status Date / Time Oxycodone [From OxyContin] Allergy Hives Verified 01/31/17 09:22 tramadol Allergy Hives Verified 01/31/17 09:22 fentyl patch Allergy Hives Uncoded 01/31/17 09:22 All Systems PM: A 10-system review of systems was performed and is negative for pertinent findings except as documented above in the HPI. - Constitutional Constitutional: fatigue, lethargy - EENT Eyes: no change in vision, no discharge, no pain, no photophobia Ears: no ear discharge, no ear pain, no tinnitus Nose, mouth and throat: no dysphagia, no nasal discharge, no neck pain, no sore throat - Cardiovascular Cardiovascular ROS IM: dyspnea, dyspnea on exertion - Respiratory Respiratory: dyspnea on exertion, wheezing, chest congestion - Gastrointestinal Gastrointestinal: no abdominal pain, no diarrhea, no hematemesis, no hematochezia, no melena, no nausea, no vomiting - Musculoskeletal Musculoskeletal ROS IM: no numbness, no tingling - Integumentary Integumentary IM: no rash, no unusual bruising - Constitutional Vitals: Temp Pulse Resp BP Pulse Ox 97.9 F 94 36 127/75 98 10/21/17 08:53 10/21/17 10:15 10/21/17 10:15 10/21/17 10:15 10/21/17 10:15 General appearance: Present: mild distress - Eye Eye exam: Present: PERRL, conjuntiva pink, sclera anicteric Pupils: Present: PERRL - Neck Neck exam general surgery: Present: supple, trachea midline. Absent: lymphadenopathy - Respiratory Respiratory exam: Present: decreased breath sounds, prolonged expiratory phase, rhonchi, wheezes - Cardiovascular Cardiovascular exam: Present: irregular rhythm, systolic murmur, tachycardia - GI/Abdominal GI/Abdominal exam: Present: normal bowel sounds, soft, no peritoneal signs. Absent: distended, tenderness Internal Med - H&P Results - Labs CBC & Chem 7: 10/21/17 09:13 Labs: BMP 10/21/17 09:13 Sodium 132 L Potassium 4.3 Chloride 95 L Carbon Dioxide 32 H BUN 22 Creatinine 0.95 Glucose 154 H Calcium 9.1 Cardiac Enzymes 10/21/17 Range/Units 09:13 Troponin I 0.09 H* (< 0.04) ng/mL - ABG Interpretation ABG results: 10/21/17 10:12 VBG pH 7.26 L VBG pCO2 74 H* VBG pO2 34 VBG HCO3 34 H - Impressions ITS Impressions Chest X-Ray 10/21/17 08:57 IMPRESSION: Trace pleural effusions, nearly completely resolved compared to 10/14/2017. Minimal left basilar atelectasis, significantly improved from the prior exam as well. Persistent interstitial pulmonary edema. D/ / 10/21/2017 10:06:55 Stanton Bran MD / Alejandra Babb Interpreting Provider: Stanton Bran MD
[2017-10-21] MEDS ORDERED: Naloxone 0.4 MG/ML INJ IVP PRN (11:07)
[2017-10-21] MEDS ORDERED: Nitroglycerin 0.4 MG TAB.SUBL SL PRN (11:10)
[2017-10-21] MEDS ORDERED: MOM Conc 10 ML UD.LIQ PO PRN (11:10)
[2017-10-21] MEDS ORDERED: *HR* HYDROcodone/Acet 5/325 mg TABLET PO PRN (11:10)
[2017-10-21] MEDS ORDERED: Ipratropium/Albuterol Neb 3 ML IH PRN (11:15)
[2017-10-21] MEDS: Ipratropium/Albuterol Neb 3 ML IH SCH ×4 (13:26→23:27)
[2017-10-21 14:21] LABS: Basophils % 0.1 %; Hematocrit 39.4 % (37.5-50.1); Hemoglobin 12.1 g/dL (12.9-16.9); Immature Granulocytes % 0.4 % (0-4); Lymphocytes # 0.4 K/mcL (0.6-4.6); Lymphocytes % 5.3 %; Mean Corpuscular HGB Conc 30.7 g/dL (31.6-35.5); Mean Corpuscular Hemoglobin 27.4 pg (28.0-33.3); Mean Corpuscular Volume 89.1 fL (83.0-100.0); Mean Platelet Volume 10.3 fL (9.4-12.4); Monocytes # 0.1 K/mcL (0.0-1.3); Monocytes % 1.5 %; Neutrophils # 6.8 K/mcL (1.6-8.9); Platelet Count 208 K/mcL (140-400); Red Blood Count 4.42 M/mcL (4.19-5.50); Red Cell Distribution Width 15.5 % (11.5-14.5); Segmented Neutrophils % 92.7 %
[2017-10-21] MEDS: MethylPREDNISolone 40 MG/ML VIAL IVP SCH ×2 (16:29→23:48)
--- NOTE | 2017-10-21 18:10 | Electrocardiograph Report ---
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
[2017-10-21] MEDS: Budesonide/Formoterol 160/4.5 MDI IH SCH (20:02)
[2017-10-21] MEDS: Furosemide 40 MG in 0.9 % Sodium Chloride 50 ML IV SCH (22:24)
[2017-10-22] MEDS: Ipratropium/Albuterol Neb 3 ML IH SCH ×6 (04:20→23:11)
[2017-10-22] MEDS: Budesonide/Formoterol 160/4.5 MDI IH SCH ×2 (07:34→20:44)
[2017-10-22] MEDS: MethylPREDNISolone 40 MG/ML VIAL IVP SCH (08:07)
[2017-10-22] MEDS ORDERED: Aspirin 81 MG TAB.CHEW PO SCH (09:00)
[2017-10-22] MEDS ORDERED: *HR* Digoxin 0.125 MG TABLET PO SCH (09:00)
[2017-10-22] MEDS ORDERED: Fluticasone Propionate Nasal 50 MCG/SPRAY BOTTLE NS SCH (09:00)
[2017-10-22] MEDS: Furosemide 40 MG in 0.9 % Sodium Chloride 50 ML IV SCH (09:35)
--- NOTE | 2017-10-22 10:26 | Internal Med Progress Note ---
Date of Encounter: 10/22/17 Time of Encounter: 10:24 - Assessment and plan (1) Acute and chronic respiratory failure Current Visit: No Status: Acute Assessment and plan: Continue to wean down oxygen as tolerated. Continue with nebulizers. Etiology is likely secondary to below. Treat underlying cause as below. Qualifiers: Respiratory failure complication: hypoxia and hypercapnia Qualified Code(s) : J96.21 - Acute and chronic respiratory failure with hypoxia; J96.22 - Acute and chronic respiratory failure with hypercapnia; J96.22 - Acute and chronic respiratory failure with hypercapnia; J96.22 - Acute and chronic respiratory failure with hypercapnia (2) Acute congestive heart failure Current Visit: No Status: Acute Assessment and plan: Since likely an exacerbation of acute systolic heart failure. We will continue to diurese with IV Lasix 40 mg twice a day. Wean down oxygen as tolerated. Currently on BiPAP. Check an ABG. The patient is on a beta nicky as well. We will add an DARRON inhibitor given previous echo showed EF of 30%. We will repeat an echo and if there is no improvement we will consult cardiology. Continue aspirin. Continue digoxin. Qualifiers: Congestive heart failure type: systolic Qualified Code(s): I50.21 - Acute systolic (congestive) heart failure (3) Acute exacerbation of chronic obstructive airways disease Current Visit: Yes Status: Acute Assessment and plan: I do not believe the patient is in COPD exacerbation. Will stop IV steroids (4) Atrial fibrillation Current Visit: Yes Status: Chronic Assessment and plan: Continue with beta nicky. The patient is also on digoxin. He is currently only on aspirin. We will have to investigate anticoagulation as I believe the patient would qualify for it given his high chads2 vasc score Qualifiers: Atrial fibrillation type: paroxysmal Qualified Code(s): I48.0 - Paroxysmal atrial fibrillation (5) CAD (coronary artery disease) Current Visit: Yes Status: Acute Assessment and plan: Troponins are elevated however they are consistently 1.06. No chest pain. This is likely NSTEMI type II. We will continue to monitor for now. Check an echocardiogram. The patient is on aspirin and is on a statin and beta nicky. Qualifiers: Coronary Disease-Associated Artery/Lesion type: [place] artery [place] vs. transplanted heart: [place] heart Associated angina: without angina Qualified Code(s): I25.10 - Atherosclerotic heart disease of [place] coronary artery without angina pectoris (6) Elevated troponin Current Visit: Yes Status: Acute Assessment and plan: As above (7) DVT prophylaxis Current Visit: No Status: Acute Assessment and plan: We will add Lovenox - Constitutional Vitals: Temp Pulse Resp BP Pulse Ox 97.1 F L 100 22 125/80 96 10/22/17 07:55 10/22/17 08:00 10/22/17 08:00 10/22/17 08:00 10/22/17 08:00 General appearance: Present: mild distress Internal Medicine: Result - Labs CBC & Chem 7: 10/21/17 14:07 10/21/17 09:13 Labs: Short CBC 10/21/17 Range/Units 14:07 WBC 7.4 (4.3-11.1) K/mcL Hgb 12.1 L (12.9-16.9) g/dL Hct 39.4 (37.5-50.1) % Plt Count 208 (140-400) K/mcL Neutrophils # 6.8 (1.6-8.9) K/mcL Cardiac Enzymes 10/21/17 10/21/17 Range/Units 14:07 23:03 Troponin I 0.08 H* 0.06 H* (< 0.04) ng/mL Consult Discharge Plan - Plan Referrals: Hakeem Quan [Primary Care Provider] -
[2017-10-22] MEDS ORDERED: *HR* Enoxaparin 40 MG/0.4 ML SYRINGE SQ SCH (10:30)
[2017-10-22 11:05] LABS: ABG Base Excess 8 mEq/L (-2 to 3); ABG HCO3 37 mEq/L (21-27); ABG Oxygen Saturation 97 % (95-98); ABG PCO2 70 mmHg (35-45); ABG PH 7.33 pH Units (7.32-7.45); ABG PO2 97 mmHg (85-104); ABG TCO2 39 mEq/L (20-26); Blood Gas PEEP 6 cm H2O; Blood Gas Pressure Support 12 cm H2O; Blood Gas Respiration Rate 8
[2017-10-22 13:03] LABS: Basophils % 0.1 %; Hematocrit 40.7 % (37.5-50.1); Hemoglobin 12.1 g/dL (12.9-16.9); Immature Granulocytes % 0.3 % (0-4); Lymphocytes # 0.5 K/mcL (0.6-4.6); Mean Corpuscular HGB Conc 29.7 g/dL (31.6-35.5); Mean Corpuscular Hemoglobin 27.1 pg (28.0-33.3); Mean Corpuscular Volume 91.1 fL (83.0-100.0); Mean Platelet Volume 11.2 fL (9.4-12.4); Monocytes # 0.6 K/mcL (0.0-1.3); Monocytes % 4.7 %; Neutrophils # 11.2 K/mcL (1.6-8.9); Platelet Count 214 K/mcL (140-400); Red Blood Count 4.47 M/mcL (4.19-5.50); Red Cell Distribution Width 15.3 % (11.5-14.5); Segmented Neutrophils % 90.9 %
[2017-10-22 13:29] LABS: BUN/Creatinine Ratio 34 (6-26); Blood Urea Nitrogen 32 mg/dL (8-23); Calcium 9.1 mg/dL (8.6-10.3); Carbon Dioxide 34 mEq/L (23-29); Chloride 95 mEq/L (98-107); Glucose 127 mg/dL (70-105); Osmolality,Calculated 292 (280-300); Potassium 4.1 mEq/L (3.5-5.1); Sodium 137 mEq/L (136-145); eGFR For African Americans > 60 (> 60); eGFR For Non-African Americans > 60 (> 60)
[2017-10-22] MEDS: *HR* LORazepam 0.5 MG TABLET PO PRN ×2 (13:47→23:17)
[2017-10-22 14:16] LABS: ABG Base Excess 8 mEq/L (-2 to 3); ABG HCO3 37 mEq/L (21-27); ABG Oxygen Saturation 96 % (95-98); ABG PCO2 71 mmHg (35-45); ABG PH 7.32 pH Units (7.32-7.45); ABG PO2 94 mmHg (85-104); ABG TCO2 39 mEq/L (20-26); Blood Gas PEEP 6 cm H2O; Blood Gas Pressure Support 14 cm H2O
[2017-10-22] MEDS ORDERED: Furosemide 40 MG/4 ML VIAL IVP SCH (21:00)
[2017-10-22 22:59] VITALS: BP 115/76
[2017-10-23] MEDS ORDERED: Haloperidol Lactate 5 MG/ML VIAL IVP ONE (00:28)
[2017-10-23 01:33] LABS: Basophils % 0.2 %; Hematocrit 43.1 % (37.5-50.1); Hemoglobin 12.8 g/dL (12.9-16.9); Immature Granulocytes % 0.5 % (0-4); Lymphocytes # 1.2 K/mcL (0.6-4.6); Lymphocytes % 6.1 %; Mean Corpuscular HGB Conc 29.7 g/dL (31.6-35.5); Mean Corpuscular Hemoglobin 27.2 pg (28.0-33.3); Mean Corpuscular Volume 91.7 fL (83.0-100.0); Mean Platelet Volume 10.9 fL (9.4-12.4); Monocytes # 1.5 K/mcL (0.0-1.3); Monocytes % 8.1 %; Neutrophils # 16.1 K/mcL (1.6-8.9); Platelet Count 269 K/mcL (140-400); Red Cell Distribution Width 15.3 % (11.5-14.5); Segmented Neutrophils % 85.1 %
[2017-10-23 01:54] LABS: Alanine Aminotransferase 6 Units/L (7-52); Albumin 3.2 g/dL (3.5-5.7); Albumin/Globulin Ratio 0.8 (1.1-2.2); Alkaline Phosphatase 59 Units/L (34-104); Aspartate Amino Transferase 14 Units/L (13-39); BUN/Creatinine Ratio 34 (6-26); Bilirubin,Total 0.5 mg/dL (0.3-1.0); Blood Urea Nitrogen 42 mg/dL (8-23); Calcium 9.2 mg/dL (8.6-10.3); Carbon Dioxide 37 mEq/L (23-29); Chloride 95 mEq/L (98-107); Globulin 3.9 g/dL (2.4-3.5); Glucose 157 mg/dL (70-105); Magnesium 2.1 mg/dL (1.6-2.6); Osmolality,Calculated 302 (280-300); Potassium 4.5 mEq/L (3.5-5.1); Sodium 139 mEq/L (136-145); Total Protein 7.1 g/dL (6.4-8.9); eGFR For African Americans > 60 (> 60); eGFR For Non-African Americans 57 (> 60)
--- NOTE | 2017-10-23 03:43 | Event Note ---
Date of Encounter: 10/23/17 Time of Encounter: 03:00 Report by RN at 00:20 pt is agitated and cannot tolerate BiPAP, consider delirium and haldol 2mg iv ordered. Pt is calm down after treatment and tolerate BiPAP well. His SpO2 is around 96% and HR around 110. At about 3:05, pt was found sudden onset bradycardia to HR 40s and then has cardiac arrest in 1-2 minutes. Rapid respond was called but pt before any treatment can be applied. Pt is DNR/DNI, CPR is not started. anounced at 3:08.
--- NOTE | 2017-10-23 03:57 | Death Note ---
Pronouncement Note - Date and Time of Date of : 10/23/17 Time of : 03:08 - PCOD Preliminary cause of : Cardiac arrest - Additional Data Confirmation of : no pulse, no respirations, no heart sounds, pupils fixed and dilated Family: contacted Attending physician: Akshat Muñiz Was code activated?: No Autopsy requested?: No motor vehicle examiner notified?: No Organ bank notified?: No Advance directives: Yes (DNR/DNI)
[2017-10-23] MEDS: Ipratropium/Albuterol Neb 3 ML IH SCH (04:42)
== END 2017-10-23 05:30 | disposition expired ==
LOC: EMEROO 08:50 → 2NNU 12:16
PROVIDERS: ADMIT Internal Medicine Cardiovascular Disease; ATTEND Internal Medicine